=== PATIENT | female | born 1950 | race Hispanic/Latino ===

== ENCOUNTER 2017-04-15 05:18 | Inpatient (IN) | payer MEDICAID, MEDICARE ==
[2017-04-15 05:28] VITALS: BMI 43.9
[2017-04-15] MEDS ORDERED: Morphine 2 mg/ml ISec IVP STA (06:04)
[2017-04-15] MEDS ORDERED: Sodium Chloride 0.9% 500 ML IV STA (06:04)
--- NOTE | 2017-04-15 06:10 | ED PDOC ---
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 Patient reports she lives in [place], went to blood sugar doctor today, had blood pressure of 190/120, was referred to a spinning machine tender. Patient notes having some anxiety when she went home about this and developed some chest pain, drove from [place] to [place] to stay with son tonight. Patient reports elevated blood pressure tonight and couldn't sleep. Patient notes she has a scheduled surgery in three days because of two bumps in vaginal area, cancelled due to elevated blood pressure. Reports pain is 5 out of 10. Patient denies any other complaints at this time. mechanical process engineer number: [id number], name Mela (Jimbo Brooks) Past Medical History - Provider Review Nursing Documentation Reviewed: Yes - Reproductive Menopause: Yes - Cardiac Hx Hypertension: Yes - Pulmonary Hx Respiratory Disorders: No - Neurological Hx Neurological Disorder: No - HEENT Hx HEENT Disorder: No - Renal Hx Renal Disorder: No - Endocrine/Metabolic Hx Diabetes Mellitus Type 2: Yes - Hematological/Oncological Hx Blood Disorders: No - Integumentary Hx Dermatological Disorder: No - Musculoskeletal/Rheumatological Hx Musculoskeletal Disorders: No - Gastrointestinal Hx Gastrointestinal Disorders: No - Genitourinary/Gynecological Hx Genitourinary Disorders: No - Psychiatric Hx Depression: Yes Hx Substance Use: No - Surgical History Hx Cholecystectomy: Yes Other/Comment: vein put in heart - Suicidal Assessment Feels Threatened In Home Enviroment: No <Jimbo Brooks - Last Filed: 04/15/17 06:11> Family/Social History - Physician Review Nursing Documentation Reviewed: Yes Family/Social History: No Known Family HX Smoking Status: Never Smoked Hx Alcohol Use: No Hx Substance Use: No <Jimbo Brooks - Last Filed: 04/15/17 06:11> Allergies/Home Meds <Jimbo Brooks - Last Filed: 04/15/17 06:11> <Sacha Webre - Last Filed: 04/15/17 07:54> Allergies/Adverse Reactions: Allergies Penicillins Allergy (Verified 04/15/17 05:28) RASH Home Medications: Home Meds Medication Instructions Recorded Confirmed Aripiprazole [Abilify] 1 mg PO HS 06/04/13 04/15/17 Aspirin [Aspir 81] 81 mg PO DAILY 06/04/13 04/15/17 Atorvastatin [Lipitor] 10 mg PO HS 06/04/13 04/15/17 Clonidine Hydrochloride [Clonidine 0.2 mg PO TID 06/04/13 04/15/17 HCl] Ezetimibe [Zetia] 10 mg PO HS 06/04/13 04/15/17 Furosemide 20 mg PO BID 06/04/13 04/15/17 Levothyroxine Sodium 50 mcg PO DAILY 06/04/13 04/15/17 Losartan Potassium [Cozaar] 100 mg PO DAILY 06/04/13 04/15/17 Venlafaxine Hydrochloride [Effexor 150 mg PO DAILY 06/04/13 04/15/17 Xr] clonazePAM [clonAZEPAM] 0.5 mg PO HS 06/04/13 04/15/17 clonazePAM [clonAZEPAM] 0.5 mg PO QAM 06/04/13 04/15/17 Clopidogrel [Plavix] 75 mg PO QAM 04/15/17 04/15/17 Exenatide Microspheres [Bydureon 2 mg SQ QWK 04/15/17 04/15/17 Pen] Insulin Aspart Prot/Insuln Asp 25 unit SQ TID 04/15/17 04/15/17 [Novolog Mix 70-30 Vial] Labetalol [Trandate] 300 mg PO BID 04/15/17 04/15/17 amLODIPine [Norvasc] 10 mg PO HS 04/15/17 04/15/17 Review of Systems - Physician Review All systems were reviewed & negative as marked: Yes - Review of Systems Constitutional: absent: Fevers Cardiovascular: Chest Pain Psychiatric: Anxiety <Jimbo Brooks - Last Filed: 04/15/17 06:11> Physical Exam Vital Signs Reviewed: Yes Temperature: Afebrile Blood Pressure: Hypertensive Pulse: Regular Respiratory Rate: Normal Appearance: Positive for: Comfortable, Other (Short of breath, shallow breathing ) Pain Distress: None Mental Status: Positive for: Alert and Oriented X 3 - Systems Exam Head: Present: Atraumatic, Normocephalic Pupils: Present: PERRL Extroacular Muscles: Present: EOMI Conjunctiva: Present: Normal Mouth: Present: Moist Mucous Membranes Neck: Present: Normal Range of Motion Respiratory/Chest: Present: Other (shallow breathing). No: Respiratory Distress , Accessory Muscle Use Cardiovascular: Present: Regular Rate and Rhythm, Normal S1, S2. No: Murmurs Abdomen: Present: Normal Bowel Sounds. No: Tenderness, Distention, Peritoneal Signs Back: Present: Normal Inspection Upper Extremity: Present: Normal Inspection. No: Cyanosis, Edema Lower Extremity: Present: Normal Inspection. No: Edema Neurological: Present: GCS=15, CN II-XII Intact, Speech Normal Skin: Present: Warm, Dry, Normal Color. No: Rashes Psychiatric: Present: Alert, Oriented x 3, Normal Insight, Normal Concentration <Jimbo Brooks - Last Filed: 04/15/17 06:11> Vital Signs Temp Pulse Resp BP Pulse Ox 04/15/17 05:29 98.2 F 96 H 20 178/78 H 100 04/15/17 05:19 98.2 F 97 H 18 178/78 H 100 Medical Decision Making - Lab Interpretations I have reviewed the lab results: Yes - EKG Interpretation Interpreted by ED Physician: Yes Type: 12 lead EKG <Jimbo Brooks - Last Filed: 04/15/17 06:11> - RAD Interpretation Political Scientist: Radiologist <Sacha Weber - Last Filed: 04/15/17 07:54> ED Course and Treatment: 04/15/17 06:07 Impression: A 66 year old female with chest pain and elevated blood pressure. Plan: -- EKG -- chest xray -- CT angio chest -- CT head -- labs -- Urinalysis -- Ativan, Zofran, IV fluids, Morphine -- Reassess and disposition Prior Visits: Notes and results from previous visits were reviewed. Patient was last seen in the emergency department on 06/04/13 for evaluation of syncopal episodes. Progress Notes: EKG: Ordered, reviewed, and independently interpreted the EKG. Rate : 93 BPM Rhythm : NSR Interpretation : Normal intervals, normal axis (Jimbo Brooks) 04/15/17 07:36 Turned over to me by waiting for CT scan of the head and CTA. Patient is Honduran speaking. Apparently had chest pain yesterday. History of hypertension and diabetes. Discussed with Dr. Leo who will place on telemetry observation. (Sacha Weber) - Lab Interpretations Lab Results: 04/15/17 05:34 04/15/17 05:34 Lab Results 04/15/17 06:27: Influenza Typ A,B (EIA) Negative for flu a/b 04/15/17 06:21: pCO2 33 L, pO2 124.0 H, HCO3 24.0, ABG pH 7.47 H, ABG Total CO2 25.0, ABG O2 Saturation 99.0 H, ABG Base Excess 0.9, ABG Potassium 4.0, Glucose 405 H*, Lactate 1.9, FiO2 28.0, Sodium 135.0, Chloride 102.0, Arterial Blood Potassium 4.0 04/15/17 05:34: Sodium 139, Potassium 4.3, Chloride 99, Carbon Dioxide 25, Anion Gap 19, BUN 20, Creatinine 0.9, Est GFR ( Amer) > 60, Est GFR (Non- Af Amer) > 60, Random Glucose 406 H* D, Calcium 10.2, Total Bilirubin 0.8, AST 24, ALT 39, Alkaline Phosphatase 194 H, Lactate Dehydrogenase 601, Total Creatine Kinase 274 H, CK-MB (CK-2) 3.8 H, CK-MB (CK-2) % Cancelled, Troponin I 0.01, NT-Pro-B Natriuret Pep 90.8, Total Protein 7.7, Albumin 4.4, Globulin 3.3 , Albumin/Globulin Ratio 1.3 04/15/17 05:34: PT 11.1, INR 0.97 04/15/17 05:34: WBC 6.2, RBC 4.69, Hgb 14.0, Hct 41.6, MCV 88.7, MCH 29.9, MCHC 33.7, RDW 14.2, Plt Count 228, MPV 10.1, Gran % 67.4, Lymph % (Auto) 23.2, [place] % (Auto) 6.8 H, Eos % (Auto) 1.8, Baso % (Auto) 0.8, Gran # 4.16, Lymph # (Auto ) 1.4, [place] # (Auto) 0.4, Eos # (Auto) 0.1, Baso # (Auto) 0.05 - RAD Interpretation Radiology Orders: 04/15/17 06:00 ANGIO CHEST PE PROTOCOL [CT] Stat CHEST PORTABLE [RAD] Stat 04/15/17 06:02 HEAD W/O CONTRAST [CT] Stat CT scan of the head as read by the radiologist shows no acute findings. CT scan of the chest as read by the radiologist shows no acute findings. (Sacha Weber) - Medication Orders Current Medication Orders: Amlodipine Besylate (Norvasc) 10 mg PO HS ENRIQUETA Aspirin (Ecotrin) 81 mg PO DAILY ENRIQUETA Atorvastatin Calcium (Lipitor) 10 mg PO HS ENRIQUETA Clonazepam (Klonopin) 0.5 mg PO QAM ENRIQUETA PRN Reason: Protocol Clonazepam (Klonopin) 0.5 mg PO HS ENRIQUETA PRN Reason: Protocol Clopidogrel Bisulfate (Plavix) 75 mg PO QAM ENRIQUETA Insulin Human Regular (Humulin R High) 0 units SC ACHS ENRIQUETA PRN Reason: Protocol Labetalol HCl (Trandate) 300 mg PO BID ENRIQUETA Non-Formulary Medication (Aripiprazole [Abilify]) 1 mg PO HS ENRIQUETA Non-Formulary Medication (Clonidine Hydrochloride [Clonidine Hcl]) 0.2 mg PO TID ENRIQUETA Non-Formulary Medication (Ezetimibe [Zetia]) 10 mg PO HS ENRIQUETA Non-Formulary Medication (Furosemide [Furosemide]) 20 mg PO BID ENRIQUETA Non-Formulary Medication (Insulin Aspart Prot/Insuln Asp [Novolog Mix 70-30 Vial ]) 25 unit SQ TID ENRIQUETA Non-Formulary Medication (Levothyroxine Sodium [Levothyroxine Sodium]) 50 mcg PO DAILY ENRIQUETA Non-Formulary Medication (Losartan Potassium [Cozaar]) 100 mg PO DAILY ENRIQUETA Non-Formulary Medication (Venlafaxine Hydrochloride [Effexor Xr]) 150 mg PO DAILY ENRIQUETA Discontinued Medications Sodium Chloride (Sodium Chloride 0.9%) 500 mls @ 999 mls/hr IV .Q31M STA Stop: 04/15/17 06:34 Last Admin: 04/15/17 06:24 Dose: 999 mls/hr eMAR Start Stop Document 04/15/17 06:24 AD (Rec: 04/15/17 06:24 AD [id number]) Intravenous Solution Start Date 04/15/17 Start Time 06:24 Insulin Human Regular (Humulin R) 7 units IVP ONCE ONE Stop: 04/15/17 06:49 Last Admin: 04/15/17 06:56 Dose: 7 units MAR Blood Glucose Document 04/15/17 06:56 AD (Rec: 04/15/17 06:56 AD [id number]) Blood Glucose Finger Stick Blood Glucose (70-120) 406 IVP Administration Document 04/15/17 06:56 AD (Rec: 04/15/17 06:56 AD [id number]) Charges for Administration # of IVP Administrations 1 Lorazepam (Ativan) 1 mg IVP ONCE ONE PRN Reason: Protocol Stop: 04/15/17 06:05 Last Admin: 04/15/17 06:24 Dose: 1 mg IVP Administration Document 04/15/17 06:24 AD (Rec: 04/15/17 06:25 AD [id number]) Charges for Administration # of IVP Administrations 1 Morphine Sulfate (Morphine) 2 mg IVP STAT STA Stop: 04/15/17 06:05 Last Admin: 04/15/17 06:24 Dose: 2 mg MAR Pain Assessment Document 04/15/17 06:24 AD (Rec: 04/15/17 06:24 AD [id number]) Pain Reassessment Is this a pain reassessment? No Location Pain Location Body Site Chest Description Intensity of Pain at present 5 Pain Behavior Facial Grimacing IVP Administration Document 04/15/17 06:24 AD (Rec: 04/15/17 06:24 AD [id number]) Charges for Administration # of IVP Administrations 1 Ondansetron HCl (Zofran Inj) 4 mg IVP STAT STA Stop: 04/15/17 06:05 Last Admin: 04/15/17 06:24 Dose: 4 mg IVP Administration Document 04/15/17 06:24 AD (Rec: 04/15/17 06:24 AD [id number]) Charges for Administration # of IVP Administrations 1 - Scribe Statement The provider has reviewed the documentation as recorded by the Scribe <Jimbo Brooks - Last Filed: 04/15/17 06:11> <Sacha Weber - Last Filed: 04/15/17 07:54> - Scribe Statement Lynette Norris Provider Scribe Attestation: All medical record entries made by the Scribe were at my direction and personally dictated by me. I have reviewed the chart and agree that the record accurately reflects my personal performance of the history, physical exam, medical decision making, and the department course for this patient. I have also personally directed, reviewed, and agree with the discharge instructions and disposition. (Jimbo Brooks) Disposition/Present on Arrival - Present on Arrival History of DVT/PE: No History of Uncontrolled Diabetes: No Urinary Catheter: No History of Decub. Ulcer: No History Surgical Site Infection Following: None <Jimbo Brooks - Last Filed: 04/15/17 06:11> - Present on Arrival Any Indicators Present on Arrival: No History of DVT/PE: No History of Uncontrolled Diabetes: Yes Urinary Catheter: No History of Decub. Ulcer: No - Disposition Have Diagnosis and Disposition been Completed?: Yes Disposition Time: 07:44 Patient Plan: Observation, Telemetry <Sacha Weber - Last Filed: 04/15/17 07:54> - Disposition Diagnosis: Chest pain, Hypertension, Hyperglycemia Disposition: HOSPITALIZED Patient Problems: Current Active Problems Problem Status Onset Chest pain Acute Hyperglycemia Acute Hypertension Acute Condition: GOOD
[2017-04-15 06:24] LABS: ARTERIAL BLOOD GAS PCO2 33 mm/Hg (35-45); ARTERIAL BLOOD GAS PH 7.47 (7.35-7.45)
[2017-04-15 06:29] LABS: BASO # 0.05 K/mm3 (0.0-2.0); BASO % 0.8 % (0.0-3.0); EOS # 0.1 (0.0-0.7); EOS % 1.8 % (1.5-5.0); GRAN # 4.16 (1.4-6.5); GRAN % 67.4 % (50.0-68.0); LYMPH # 1.4 (1.2-3.4); LYMPH % 23.2 % (22.0-35.0); MEAN CELL VOLUME 88.7 fl (80.0-105.0); MEAN CORPUSCULAR HEMOGLOBIN 29.9 pg (25.0-35.0); MEAN CORPUSCULAR HGB CONC 33.7 g/dl (31.0-37.0); MEAN PLATELET VOLUME 10.1 fl (7.0-11.0); MONO # 0.4 (0.1-0.6); MONO % 6.8 % (1.0-6.0); RBC 4.69 10^6/uL (3.5-6.1); RED CELL DISTRIBUTION WIDTH 14.2 % (11.5-14.5); WHITE BLOOD COUNT 6.2 10^3/ul (4.5-11.0)
[2017-04-15 06:37] LABS: INR 0.97 (0.93-1.08); PROTHROMBIN TIME 11.1 SECONDS (9.4-12.5)
[2017-04-15 06:46] LABS: ALB/GLOB RATIO 1.3 (1.1-1.8); ALBUMIN 4.4 g/dL (3.0-4.8); ALT/SGPT 39 U/L (7-56); AST/SGOT 24 U/L (14-36); BLOOD UREA NITROGEN 20 mg/dL (7-21); CALCIUM 10.2 mg/dL (8.4-10.5); GFR AFRICAN-AMERICAN > 60; GFR NON-AFRICAN AMERICAN > 60
[2017-04-15] MEDS ORDERED: Insulin Regular 1 UNITS/0.01 ML ML IVP ONE (06:48)
[2017-04-15 06:50] LABS: B-TYPE NATRIURETIC PEPTIDE 90.8 pg/mL (0-450); TROPONIN I 0.01 ng/mL
[2017-04-15 07:06] LABS: CK-MB 3.8 ng/mL (0.0-3.6)
--- NOTE | 2017-04-15 07:41 | CT ---
EXAM: CT Head Without Intravenous Contrast CLINICAL HISTORY: 66 years old, female; Signs and symptoms; Dizziness; Additional info: Hypertensive crisis TECHNIQUE: Axial computed tomography images of the head/brain without intravenous contrast. All CT scans at this facility use one or more dose reduction techniques, viz.: automated exposure control; ma/kV adjustment per patient size (including targeted exams where dose is matched to indication; i.e. head); or iterative reconstruction technique. Coronal and sagittal reformatted images were created and reviewed. COMPARISON: No relevant prior studies available. FINDINGS: Brain: There is mild ill-defined patchy hypodensity within the bilateral cerebral periventricular white matter, consistent with chronic microvascular ischemic changes. There is mild diffuse cerebral atrophy present, consistent with this patient's age. The cortical rivera / white matter interfaces are preserved throughout the brain. Examination of the posterior fossa demonstrates no significant abnormality. No hemorrhage. Ventricles: The ventricular system demonstrates mild diffuse compensatory enlargement. Bones/joints: Unremarkable. No acute fracture. Soft tissues: Unremarkable. Vasculature: There is no hyperdense MCA sign. Sinuses: Unremarkable as visualized. No acute sinusitis. Mastoid air cells: Unremarkable as visualized. No mastoid effusion. IMPRESSION: No acute infarction, masses or hemorrhage is seen. No acute intracranial abnormality is identified. Diffuse age-related cerebral atrophy and mild chronic microvascular white matter ischemic changes, without evidence of an acute intracranial abnormality.
--- NOTE | 2017-04-15 07:50 | CT ---
EXAM: CT Angiography Chest With Intravenous Contrast CLINICAL HISTORY: 66 years old, female; Signs and symptoms; Shortness of breath; Additional info: Possible pe TECHNIQUE: Axial computed tomographic angiography images of the chest with intravenous contrast using pulmonary embolism protocol. All CT scans at this facility use one or more dose reduction techniques, viz.: automated exposure control; ma/kV adjustment per patient size (including targeted exams where dose is matched to indication; i.e. head); or iterative reconstruction technique. MIP reconstructed images were created and reviewed. Coronal and sagittal reformatted images were created and reviewed. CONTRAST: 135 mL of omni 350 administered intravenously. COMPARISON: No relevant prior studies available. FINDINGS: Pulmonary arteries: The pulmonary arteries are adequately opacified. No evidence of pulmonary embolism in the main, central, lobar or segmental pulmonary arteries. Aorta: The thoracic aorta is normal caliber without evidence for aneurysm or dissection. The aorta demonstrates mild atherosclerotic calcification. Lungs: There is subpleural atelectasis of the dependent portions of the lungs.No acute infiltrate, pneumothorax or pleural effusion is seen. No mass. Pleural space: See above. Heart: There is moderate atherosclerotic calcification of the coronary arteries. No significant pericardial effusion. No evidence of RV dysfunction. Bones/joints: The thoracic spine demonstrates mild degenerative changes at multiple levels. No acute fracture. No dislocation. Soft tissues: Unremarkable. Lymph nodes: Unremarkable. No enlarged lymph nodes. IMPRESSION: 1. The thoracic aorta is normal caliber without evidence for aneurysm or dissection. 2. The pulmonary arteries are adequately opacified. No evidence of pulmonary embolism in the main, central, lobar or segmental pulmonary arteries. 3. There is subpleural atelectasis of the dependent portions of the lungs.No acute infiltrate, pneumothorax or pleural effusion is seen.
[2017-04-15 08:17] LABS: PH,URINE 6.5 (4.7-8.0); URINE BILIRUBIN NEGATIVE (NEGATIVE); URINE BLOOD SMALL (NEGATIVE); URINE GLUCOSE (UA) >=1000 mg/dL (NEGATIVE); URINE LEUKOCYTE ESTERASE NEGATIVE Leu/uL (NEGATIVE); URINE NITRATE NEGATIVE (NEGATIVE); URINE PROTEIN 30 mg/dL (<30 mg/dL); URINE UROBILINOGEN 0.2 E.U./dL (<1 E.U./dL)
[2017-04-15 08:18] LABS: URINE APPEARANCE SL CLOUDY (CLEAR); URINE COLOR YELLOW (YELLOW)
--- NOTE | 2017-04-15 08:25 | RAD ---
HISTORY: chest pain COMPARISON: 06/04/2013 FINDINGS: LUNGS: No active pulmonary disease. PLEURA: No significant pleural effusion identified, no pneumothorax apparent. CARDIOVASCULAR: Normal. OSSEOUS STRUCTURES: No significant abnormalities. VISUALIZED UPPER ABDOMEN: Normal. OTHER FINDINGS: None. IMPRESSION: No active disease.
[2017-04-15 08:27] LABS: URINE BACTERIA FEW (NEG); URINE RBC 0 - 2 /hpf (0-2)
[2017-04-15] MEDS: Levothyroxine 50 MCG TAB PO SCH (10:38)
[2017-04-15] MEDS: Venlafaxine 75 mg ER Cap PO SCH (10:39)
[2017-04-15] MEDS: Insulin Lispro (humaLOG) MIX 75/25(10 ml) SC SCH ×3 (11:44→18:45)
[2017-04-15] MEDS: Insulin Reg-HIGH-Coverage SC SCH ×3 (11:45→22:03)
--- NOTE | 2017-04-15 12:26 | CARD ---
APPROVED REPORT EKG Measurement Heart [id number] NM [id number] <Conclusion> Normal sinus rhythm Normal ECG
[2017-04-15] MEDS ORDERED: Pneumococcal 23-Valent Vaccine IM ONE (13:45)
[2017-04-15] MEDS ORDERED: Influenza Vaccine 60 mcg/0.5 mL SYR (4YR UP) IM ONE (13:45)
--- NOTE | 2017-04-15 18:59 | HP ---
HISTORY OF PRESENT ILLNESS: I was called down to the emergency room to check on her by the ER doctor. She is a 66-year-old female, who is brought in by EMS at the emergency department complaining of chest pain. She has been sick, went to her blood sugar doctor, her blood pressure was 190/120, went to the hook loader, she had a little bit of anxiety, went home, developed chest pain later on. Her son eventually called 911 and brought her here. She could not sleep. There is also a scheduled surgery for her in 3 days because of two bumps in the vaginal area and it was canceled due to high blood pressure. She is having some chest pain. PAST MEDICAL HISTORY: She has CAD, hypertension, diabetes, depression, gallbladder surgery, a vein put in the heart. FAMILY HISTORY: Hypertension in the family. SOCIAL HISTORY: Never smoked. No alcohol. No drugs. ALLERGIES: SHE HAS ALLERGIES TO PENICILLIN. MEDICATIONS: She takes many medications. She might have some bipolar. She is on Abilify, aspirin, Lipitor for high cholesterol, clonidine for hypertension, Zetia, Lasix, levothyroxine for hypothyroid, Cozaar for hypertension, Effexor for depression, clonazepam for anxiety, Plavix, exenatide, insulin pen, Trandate, Norvasc. REVIEW OF SYSTEMS: No acute vision changes or hearing changes. No sore throat. She is having chest pain like a pressure, anxiety. No shortness of breath. No abdominal pain. No nausea, vomiting, constipation, or diarrhea. Extremities are okay. She is a very large lady. PHYSICAL EXAMINATION: VITAL SIGNS: She has 98.2 temperature, 97 pulse, 18 respiratory rate, 178/70 blood pressure, 100% O2 sat on room air. HEENT: Head is atraumatic, normocephalic. Extraocular muscles are intact. Pupils are equal, reactive to light. Throat is moist. NECK: Supple. HEART: Regular rate. Normal S1 and S2. LUNGS: Decreased breath sounds, but clear to auscultation. No wheezes, no rhonchi, no rales. ABDOMEN: Morbidly obese, soft, nontender. Positive bowel sounds. No apparent guarding or rebound. No CVA tenderness. EXTREMITIES: Have +1/4 pitting edema, bilateral lower extremities. NEUROLOGIC: GCS of 15. Cranial nerves II through XII grossly intact. Normal speech. She does speak Cuban, but also broken Maltese. We were able to communicate well. Alert and oriented x3, comfortable. SKIN: Warm and dry. No apparent rashes or ulcers. No chest pain at this time when I am talking to her. LABORATORY DATA: She has multiple tests. She is negative for flu. Sodium 139, potassium 4.3, BUN 20, creatinine 0.9, GFR is greater than 60; sugar is 406, I put her back on her insulin, also put her on insulin coverage. Calcium is 10.2. Total bilirubin is 0.8, AST is 24, ALT is 39, alkaline phosphatase 194. Lactate dehydrogenase is 601, total creatine kinase is 274, troponin-I is 0.01, BNP is 90.8, total protein is 7.7, albumin is 4.4, globulin is 3.3. Blood gas: She has a pCO2 of 33, pO2 is 124, sugar is 405, lactate was 1.9. INR is 0.97. She has a 6.2 white count, 14 hemoglobin, 41.6 hematocrit, with 220 platelets. She has a CAT scan of the head that showed old chest x-ray and chest CAT scan pending. Presently, I got her being very comfortable. She has 100% O2 sat on nasal cannula. She has a consult with Dr. Giles, hook loader. We will check her troponin x2 more, put on her medications, oxygen, order physical therapy. She is here on observation for chest pain. Vladimir Leo DO [email or web address]
[2017-04-15] MEDS: ARIPIPRAZOLE 1 MG PO SCH (22:03)
[2017-04-16 00:44] VITALS: O2SAT 96
--- NOTE | 2017-04-16 01:29 | CON ---
DATE: 04/15/2017 HISTORY OF PRESENT ILLNESS: The patient is a 66-year-old woman, who presents with chest pain and accelerated hypertension. The patient's past medical history includes hypertension, CAD and status post stent done at [facility], diabetes mellitus, obesity as well as palpitations. Reviewing her history, she had a monitor implanted, ruling out palpitations. She currently is still complaining of mild substernal chest discomfort. SOCIAL HISTORY: Does not smoke. REVIEW OF SYSTEMS: Fourteen-point review of systems is reviewed in detail. Other than angina, no dyspnea noted. Negative edema. No palpitations noted. PHYSICAL EXAMINATION: VITAL SIGNS: Blood pressure is 157/88, heart rate is in the 90s. NECK: Negative JVD. LUNGS: Without rales. HEART: Reveals S1, S2. EXTREMITIES: Without edema. LABORATORY DATA: EKG shows normal sinus rhythm with nonspecific ST-T changes. Glucose is 299. BUN and creatinine are normal. Troponin is negative x2. Hemoglobin is 14. IMPRESSION 1. Unstable angina. 2. Coronary artery disease. 3. History of percutaneous transluminal coronary angioplasty and stent. 4. Hypertension. 5. Hypercholesterolemia. 6. Diabetes mellitus. 7. Obesity. PLAN: Given these findings, we will restart the patient on her aspirin as well as her Plavix. The patient has currently been placed on labetalol for better blood pressure as well as Catapres. I have discussed risks, benefits of doing the catheterization here versus sending the patient back to her [facility] in [facility]. After discussion with the patient and her son, she elected to have a catheterization done here. We will schedule for the morning. Zachary Giles MD
[2017-04-16 06:21] LABS: HEMOGLOBIN 12.6 g/dL (12.0-16.0); MEAN CELL VOLUME 91.8 fl (80.0-105.0); MEAN CORPUSCULAR HEMOGLOBIN 29.4 pg (25.0-35.0); RBC 4.29 10^6/uL (3.5-6.1); RED CELL DISTRIBUTION WIDTH 14.9 % (11.5-14.5); WHITE BLOOD COUNT 5.5 10^3/ul (4.5-11.0)
[2017-04-16] MEDS: Insulin Reg-HIGH-Coverage SC SCH ×4 (07:43→23:21)
[2017-04-16 07:53] LABS: ALB/GLOB RATIO 1.2 (1.1-1.8); ALBUMIN 3.7 g/dL (3.0-4.8); CALCIUM 9.4 mg/dL (8.4-10.5)
[2017-04-16] MEDS: Insulin Lispro (humaLOG) MIX 75/25(10 ml) SC SCH ×3 (09:25→18:36)
[2017-04-16] MEDS: Venlafaxine 75 mg ER Cap PO SCH (10:16)
[2017-04-16] MEDS: Levothyroxine 50 MCG TAB PO SCH (10:16)
--- NOTE | 2017-04-16 12:23 | PN ---
DATE: SUBJECTIVE: She is comfortable on bed. No chest pain. She is breathing well. She slept well. She is eating well. She is on Abilify, Catapres, Cozaar, Ecotrin, Effexor, insulin mix, Klonopin, Lasix, Lipitor, Norvasc, Plavix, Synthroid, Trandate, and Zetia. PHYSICAL EXAMINATION: VITAL SIGNS: Temperature 97.9, 78 pulse, 127/68 blood pressure, 20 respiratory rate, 96% O2 on room air. HEENT: Head is atraumatic, normocephalic. Throat is moist. NECK: Supple. HEART: Regular rate. LUNGS: Decreased breath sounds but clear. ABDOMEN: Soft, nontender. Positive bowel sounds. Morbidly obese. EXTREMITIES: Trace edema. LABORATORY DATA: She has a 5.5 white count, 12.6 hemoglobin, 39.4 hematocrit with 225 platelets. She has a 142 sodium, potassium 4.2. BUN is 22, creatinine is 1.2. GFR is 45. Blood sugar is 192, it was as high as 405 when she came in. Calcium is 9.4. Total bilirubin is 0.78, AST is 28, ALT is 48, alkaline phosphatase 165. Troponin was 0.02 and total protein 6.9. Urine is few, negative for the flu. She is being seen by Cardiology. He feels she is having unstable angina and we will take her for catheterization today. If everything is fine, we could probably discharge her later on this evening. Otherwise, if he has to put a stent, watch her overnight. She has unstable angina, coronary artery disease, chest pain, history of percutaneous transluminal coronary angioplasty and stent, hypertension, hypercholesterolemia, diabetes, and obesity. Vladimir Leo DO
[2017-04-16] MEDS ORDERED: Iodixanol 320 MG/ML 100 ML BOTTLE IV ONE (13:19)
[2017-04-16] MEDS ORDERED: HEPARIN SODIUM/NS 2,000 ML IV ONE (13:19)
[2017-04-16] MEDS ORDERED: Lidocaine 2% Inj (20ml) ONE (13:19)
[2017-04-16] MEDS ORDERED: Iohexol 350mgl/ml 50 ML ONE (13:19)
[2017-04-16] MEDS ORDERED: Phenylephrine 10 mg/ml Inj ONE (13:19)
[2017-04-16] MEDS ORDERED: Iodixanol 320 MG/ML 200 ML BOTTLE IV ONE (13:19)
[2017-04-16] MEDS ORDERED: Midazolam 2 MG/2 ML VIAL ONE (13:36)
[2017-04-16] MEDS ORDERED: Sodium Chloride 0.9% 1,000 ML IV SCH (15:00)
[2017-04-16] MEDS: ARIPIPRAZOLE 1 MG PO SCH (23:22)
--- NOTE | 2017-04-17 00:32 | CARD ---
APPROVED REPORT EKG Measurement Heart [id number] MD [id number] <Conclusion> Normal sinus rhythm Cannot rule out Inferior infarct, age undetermined Abnormal ECG
--- NOTE | 2017-04-17 03:32 | CARDCATH ---
PROCEDURE DATE: 04/16/2017 CARDIAC CATHETERIZATION AND PTCA HISTORY: The patient is a 66-year-old woman with multiple cardiac risk factors, with a history of PTCA in the past, who presents with angina with ongoing symptoms at rest. Her troponins were intermediate. Because of her non-STEMI and high probability for new CAD lesions, a cardiac catheterization was recommended. Risks and benefits were discussed with the son on the phone. The patient requested to have the procedure done here. PROCEDURE: Left heart catheterization with coronary arteriography, left ventriculogram followed by percutaneous transluminal coronary angioplasty and stent of an left anterior descending. The right femoral artery was cannulated with a 6-Cymro sheath. There were no complications. I performed moderate sedation, which included the presence of an independent trained observer that assisted in monitoring the patient's level of consciousness and physiologic status. After administration of Versed and fentanyl, my intra-service time was 30 minutes. The findings on catheterization revealed a right dominant circulation. The RCA revealed an eccentric 70%-80% stenosis in the proximal portion. The left main artery was unremarkable. The LAD revealed a stent that extended from the midportion of the LAD into the diagonal vessel. At the takeoff of the LAD after the stent, there was an eccentric 90% stenosis noted. The circumflex artery revealed diffuse atherosclerosis without critical lesions. LV function was preserved with an EF of 60%. The patient was started on intravenous Angiomax on the fluoroscopic guide, the guiding catheter was placed in the ostium of the left main artery. A 0.014 ATW wire was used to cross the stent into the LAD lesion. A 1.25 balloon, followed by a 2.0 balloon, followed by a 2.5 balloon, followed by 2.75 balloon utilized to pre-dilate the lesion. This was followed by placing a 2.75 x 12 mm drug-eluting stent at 14 atmospheres of pressure in the lesion, which crossed the side of the stent into the LAD lesion. After balloon deflation and removal, repeat coronary arteriography revealed an excellent result with no residual stenosis in the LAD and ROSA III flow. There was preserved ROSA III flow down the diagonal vessel, although there was a 90% stenosis at the ostium of the diagonal which was not manipulated. Angio-Seal was used to close the femoral artery site. The patient tolerated the procedure well. In summary, the procedure was successful PTCA and stent of a 90% stenosis across an LAD diagonal stent that was placed in the past. Cardiac catheterization revealed two-vessel CAD. Drug-eluting stents were utilized. LV function is normal. Given these findings, the patient will need to remain on aspirin indefinitely and Plavix for at least a year. We will bring her back in 1 week for PTCA and stent of the RCA. Zahcary Giles MD
[2017-04-17 07:10] LABS: BASO # 0.02 K/mm3 (0.0-2.0); BASO % 0.4 % (0.0-3.0); BLOOD UREA NITROGEN 16 mg/dL (7-21); CALCIUM 8.8 mg/dL (8.4-10.5); EOS # 0.2 (0.0-0.7); EOS % 2.7 % (1.5-5.0); GFR AFRICAN-AMERICAN > 60; GFR NON-AFRICAN AMERICAN > 60; GRAN # 3.68 (1.4-6.5); GRAN % 66.1 % (50.0-68.0); HEMOGLOBIN 12.3 g/dL (12.0-16.0); LYMPH # 1.3 (1.2-3.4); LYMPH % 24.1 % (22.0-35.0); MEAN CELL VOLUME 91.9 fl (80.0-105.0); MEAN CORPUSCULAR HEMOGLOBIN 29.4 pg (25.0-35.0); MEAN CORPUSCULAR HGB CONC 31.9 g/dl (31.0-37.0); MONO # 0.4 (0.1-0.6); MONO % 6.7 % (1.0-6.0); RBC 4.19 10^6/uL (3.5-6.1); RED CELL DISTRIBUTION WIDTH 14.7 % (11.5-14.5); WHITE BLOOD COUNT 5.6 10^3/ul (4.5-11.0)
[2017-04-17] MEDS: Insulin Reg-HIGH-Coverage SC SCH ×2 (08:41→12:45)
[2017-04-17] MEDS: Insulin Lispro (humaLOG) MIX 75/25(10 ml) SC SCH (09:29)
[2017-04-17] MEDS: Levothyroxine 50 MCG TAB PO SCH (09:30)
[2017-04-17] MEDS: Venlafaxine 75 mg ER Cap PO SCH (09:30)
[2017-04-17 12:03] VITALS: BP 136/66; PULSE 79; RESP 18; TEMP 97.9
[2017-04-17] MEDS ORDERED: Influenza Vaccine 60 mcg/0.5 mL SYR (4YR UP) IM ONE (12:25)
[2017-04-17] MEDS ORDERED: Pneumococcal 23-Valent Vaccine IM ONE (12:25)
--- NOTE | 2017-04-17 12:48 | PN ---
DATE: 04/17/2017 CARDIOLOGY FOLLOWUP SUBJECTIVE: The patient is asymptomatic. PHYSICAL EXAMINATION: VITAL SIGNS: Blood pressure is 123/60, the heart rates in the 80s. NECK: Negative JVD. LUNGS: Without rales. HEART: With S1, S2. EXTREMITIES: Without edema. LABORATORY DATA: Hemoglobin is 12.3. Chemistries: BUN and creatinine are unremarkable. The glucose is 199. IMPRESSION: 1. Stable post percutaneous transluminal coronary angioplasty and stent of a 90% left anterior descending stenoses. 2. Multivessel coronary artery disease. 3. Hypertension. 4. Hypercholesterolemia. 5. Obesity. PLAN: Given these findings, the patient is stable post PTCA and stent. From a cardiac perspective, the patient can be discharged today. The patient is scheduled to come back next week on Friday for stage PTCA of the RCA. Zachary Giles MD
--- NOTE | 2017-04-18 08:42 | DS ---
SUBJECTIVE: I saw her resting comfortably in bed. She is feeling fairly well. She had a cardiac cath yesterday with placement, I believe, of a stent. She has unstable angina, CAD, hypertension, high cholesterol, diabetes, high blood sugar. She is comfortable. No complaints this morning in her broken Indonesian and my broken Cypriot. She is on Abilify, Catapres, Cozaar, Ecotrin, Effexor, Humalog, Klonopin, Lasix, Lipitor, Norvasc, Plavix, Synthroid, Trandate, and Zetia. PHYSICAL EXAMINATION: VITAL SIGNS: She has a 97.4 temp, 85 pulse, 122/50 blood pressure, 20 respiratory rate. HEENT: Head is atraumatic, normocephalic. HEART: Regular rate. LUNGS: Decreased breath sounds, but clear. ABDOMEN: Soft, morbidly obese. EXTREMITIES: Trace edema. LABORATORY DATA: She has 5.6 white count, 12.3 hemoglobin, 38.5 hematocrit, with 207 platelets. Sodium 141, potassium 4, BUN 16, creatinine 0.9, GFR is greater than 60. Sugar is 183, calcium is 8.8. ASSESSMENT AND PLAN: Overall she did better after the cardiac cath and stent placement. Next week, she is coming back for another vessel to be opened by Dr. Giles. I believe she is coming back on Friday. She will go home on these medications. Hopefully, she should do very well and I will see her next Friday. She was here for unstable angina and coronary artery disease. Vladimir Leo DO
== END 2017-04-17 13:41 | disposition home or self-care (01) | DRG 247 ==
LOC: ED 05:18 → ERH 07:35 → 2RSO 09:45 → OBSVTOIN 04-16 14:56 → 2RSO 04-16 15:05
PROVIDERS: ADMIT Family Medicine; ATTEND Family Medicine
PROC: 027034Z Dilation of Coronary Artery, One Artery with Drug-eluting Intraluminal Device, Percutaneous Approach (ICD-10-PCS; principal; 2017-04-16)
PROC: 4A023N7 Measurement of Cardiac Sampling and Pressure, Left Heart, Percutaneous Approach (ICD-10-PCS; 2017-04-16)
PROC: B2111ZZ Fluoroscopy of Multiple Coronary Arteries using Low Osmolar Contrast (ICD-10-PCS; 2017-04-16)
PROC: B2151ZZ Fluoroscopy of Left Heart using Low Osmolar Contrast (ICD-10-PCS; 2017-04-16)
DX: I21.4 Non-ST elevation (NSTEMI) myocardial infarction (principal); E11.65 Type 2 diabetes mellitus with hyperglycemia; I25.110 Atherosclerotic heart disease of native coronary artery with unstable angina pectoris; E66.9 Obesity, unspecified; E78.00 Pure hypercholesterolemia, unspecified; F41.9 Anxiety disorder, unspecified; I10 Essential (primary) hypertension; Z79.02 Long term (current) use of antithrombotics/antiplatelets; Z79.4 Long term (current) use of insulin; Z79.82 Long term (current) use of aspirin; Z82.49 Family history of ischemic heart disease and other diseases of the circulatory system; Z90.49 Acquired absence of other specified parts of digestive tract

== ENCOUNTER 2017-04-20 10:01 | Inpatient (IN) | payer MEDICARE ==
[2017-04-20 10:01] VITALS: BMI 43.9
--- NOTE | 2017-04-20 10:46 | ED PDOC ---
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 She also states that she has been experiencing nausea and difficulty breathing. The patient notes that she has a stent replacement last week and was discharged from the hospital 2 days ago. The patient states that she was instructed to follow up this week. The patient denies body aches, fevers, chills, headache, dizziness, dyspnea on exertion, cough, abdominal pain, vomiting, diarrhea, back pain, neck pain, urinary/bowel changes, or any other complaint. PMD: Dr. Jerrod Leo Marketing Representative: Dr. Giles Time/Duration: Other (3 AM) Symptom Onset: Sudden Symptom Course: Unchanged Activities at Onset: Rest, Light Context: Home Past Medical History - Provider Review Nursing Documentation Reviewed: Yes - Cardiac Hx Hypertension: Yes - Pulmonary Hx Respiratory Disorders: No - Neurological Hx Neurological Disorder: No - HEENT Hx HEENT Disorder: No - Renal Hx Renal Disorder: No - Endocrine/Metabolic Hx Diabetes Mellitus Type 2: Yes Hx Hypothyroidism: Yes - Hematological/Oncological Hx Blood Disorders: No - Integumentary Hx Dermatological Disorder: No - Musculoskeletal/Rheumatological Hx Falls: No - Gastrointestinal Hx Gastrointestinal Disorders: Yes (obese) - Genitourinary/Gynecological Hx Genitourinary Disorders: Yes Other/Comment: vaginal bleeding x 3 months, pt was scheduled to have sx in 3 days in vaginal area cancelled due to htn, has "2 bumps" - Psychiatric Hx Depression: Yes Hx Substance Use: No - Surgical History Hx Coronary Stent: Yes - Anesthesia Hx Anesthesia Reactions: No - Suicidal Assessment Feels Threatened In Home Enviroment: No Family/Social History - Physician Review Nursing Documentation Reviewed: Yes Family/Social History: No Known Family HX Smoking Status: Never Smoked Hx Alcohol Use: No Hx Substance Use: No Allergies/Home Meds Allergies/Adverse Reactions: Allergies Penicillins Allergy (Verified 04/20/17 10:09) RASH Home Medications: Home Meds Medication Instructions Recorded Confirmed Aspirin [Aspir 81] 81 mg PO DAILY 06/04/13 04/20/17 Atorvastatin [Lipitor] 10 mg PO HS 06/04/13 04/20/17 clonazePAM [clonAZEPAM] 0.5 mg PO HS 06/04/13 04/20/17 clonazePAM [clonAZEPAM] 0.5 mg PO QAM 06/04/13 04/20/17 ARIPiprazole [Abilify] 1 mg PO HS 04/15/17 04/20/17 Clonidine HCl [Catapres] 0.2 mg PO TID 04/15/17 04/20/17 Clopidogrel [Plavix] 75 mg PO QAM 04/15/17 04/20/17 Exenatide Microspheres [Bydureon 2 mg SQ QWK 04/15/17 04/20/17 Pen] Ezetimibe [Zetia] 10 mg PO HS 04/15/17 04/20/17 Furosemide [Lasix] 20 mg PO BID 04/15/17 04/20/17 Insulin Aspart Prot/Insuln Asp 25 unit SQ TID 04/15/17 04/20/17 [Novolog Mix 70-30 Vial] Labetalol [Trandate] 300 mg PO BID 04/15/17 04/20/17 Levothyroxine Sodium [Levoxyl] 50 mcg PO DAILY 04/15/17 04/20/17 Losartan [Cozaar] 100 mg PO DAILY 04/15/17 04/20/17 Venlafaxine [Effexor XR] 150 mg PO DAILY 04/15/17 04/20/17 amLODIPine [Norvasc] 10 mg PO HS 04/15/17 04/20/17 Review of Systems - Physician Review All systems were reviewed & negative as marked: Yes - Review of Systems Constitutional: absent: Fevers, Night Sweats Respiratory: SOB Cardiovascular: Chest Pain Gastrointestinal: Nausea. absent: Abdominal Pain, Diarrhea, Vomiting Genitourinary Female: absent: Urine Output Changes Musculoskeletal: absent: Back Pain, Neck Pain Neurological: absent: Headache, Dizziness Physical Exam Vital Signs Reviewed: Yes Vital Signs Temp Pulse Resp BP Pulse Ox 04/20/17 17:05 137/71 02/11/18 16:59 79 16 137/71 96 04/20/17 13:04 82 18 118/60 04/20/17 13:03 82 18 118/60 98 04/20/17 10:10 98.8 F 82 18 126/71 97 Temperature: Afebrile Blood Pressure: Normal Pulse: Regular Respiratory Rate: Normal Appearance: Positive for: Well-Appearing, Non-Toxic, Comfortable Pain Distress: None Mental Status: Positive for: Alert and Oriented X 3 - Systems Exam Head: Present: Atraumatic, Normocephalic Pupils: Present: PERRL Extroacular Muscles: Present: EOMI Conjunctiva: Present: Normal Mouth: Present: Moist Mucous Membranes Neck: Present: Normal Range of Motion Respiratory/Chest: Present: Clear to Auscultation, Good Air Exchange. No: Respiratory Distress, Accessory Muscle Use Cardiovascular: Present: Regular Rate and Rhythm, Normal S1, S2. No: Murmurs Abdomen: Present: Normal Bowel Sounds, Other (Obese). No: Tenderness, Distention, Peritoneal Signs Back: Present: Normal Inspection Upper Extremity: Present: Normal Inspection. No: Cyanosis, Edema Lower Extremity: Present: Normal Inspection. No: Edema, Swelling Neurological: Present: GCS=15, CN II-XII Intact, Speech Normal Skin: Present: Warm, Dry, Normal Color. No: Rashes Psychiatric: Present: Alert, Oriented x 3, Normal Insight, Normal Concentration Medical Decision Making ED Course and Treatment: 04/20/17 10:47 Impression: A 66 year old female presents to the emergency department complains of chest pain, nausea, shortness of breath since 03:00 AM. Differential Diagnosis included but are not limited to: Chest pain r/o ACS, r/ o CHF Plan: -- EKG -- Chest X-ray -- Labs -- Reassess and disposition Prior Visits: Notes and results from previous visits were reviewed. Patient was last seen in the emergency department on Progress Notes: EKG: Ordered, reviewed, and independently interpreted the EKG. Rate : 78 BPM Rhythm : NSR Interpretation : Non specific ST-T changes in inferior leads 3 and avf. Comparison : No change from 04/16/17 04/20/17 10:52: Chest X-ray, read and interpreted by me shows no acute infiltrates. 04/20/17 12:23: Discussed case in detail with Dr. Hill, covering for Dr. Giles who recommended patient be given a Lovenox dose of 1mg/ kg, aspirin and to continue Plavix. He agrees to admission. Patient's chest pain resolved. She will be admited to telemetry under Dr. Leo. Dr. Leo came to evaluate her in the ED and placed orders. - Critical Care Critical Care Minutes: 30 minutes - Lab Interpretations Lab Results: 04/20/17 10:16 04/20/17 10:16 Lab Results 04/20/17 10:16: Sodium 136, Potassium 4.2, Chloride 98, Carbon Dioxide 26, Anion Gap 16, BUN 21, Creatinine 1.1, Est GFR ( Amer) 60, Est GFR (Non- Af Amer) 49, Random Glucose 379 H* D, Calcium 9.9, Magnesium 1.8, Total Bilirubin 0.5, AST 18, ALT 36, Alkaline Phosphatase 168 H, Lactate Dehydrogenase 497, Total Creatine Kinase 82, Troponin I 0.01 D, NT-Pro-B Natriuret Pep 84.3, Total Protein 6.8, Albumin 3.9, Globulin 2.9, Albumin/ Globulin Ratio 1.3 04/20/17 10:16: WBC 5.2, RBC 4.16, Hgb 12.2, Hct 37.6, MCV 90.4, MCH 29.3, MCHC 32.4, RDW 14.4, Plt Count 218, MPV 10.4, Gran % 68.6 H, Lymph % (Auto) 22.0, [place] % (Auto) 6.1 H, Eos % (Auto) 2.7, Baso % (Auto) 0.6, Gran # 3.58, Lymph # ( Auto) 1.2, [place] # (Auto) 0.3, Eos # (Auto) 0.1, Baso # (Auto) 0.03 I have reviewed the lab results: Yes - RAD Interpretation Radiology Orders: 04/20/17 10:22 CHEST PORTABLE [RAD] Stat - EKG Interpretation Interpreted by ED Physician: Yes Type: 12 lead EKG - Medication Orders Current Medication Orders: Amlodipine Besylate (Norvasc) 10 mg PO HS ENRIQUETA Aspirin (Ecotrin) 81 mg PO DAILY ENRIQUETA Atorvastatin Calcium (Lipitor) 10 mg PO HS ENRIQUETA Clonazepam (Klonopin) 0.5 mg PO QAM ENRIQUETA PRN Reason: Protocol Clonazepam (Klonopin) 0.5 mg PO HS ENRIQUETA PRN Reason: Protocol Clonidine HCl (Catapres) 0.2 mg PO TID ENRIQUETA Last Admin: 04/20/17 14:10 Dose: 0.2 mg Clopidogrel Bisulfate (Plavix) 75 mg PO QAM ENRIQUETA Ezetimibe (Zetia) 10 mg PO HS ENRIQUETA Furosemide (Lasix) 20 mg PO BID ENRIQUETA Last Admin: 04/20/17 17:05 Dose: 20 mg MAR Blood Pressure Document 04/20/17 17:05 RG (Rec: 04/20/17 17:05 [id number]) Blood Pressure Blood Pressure (100/60-150/90) 137/71 Insulin Human Regular (Humulin R Med) 0 units SC ACHS ENRIUQETA PRN Reason: Protocol Last Admin: 04/20/17 17:12 Dose: 5 units MAR Blood Glucose Document 04/20/17 17:12 RG (Rec: 04/20/17 17:12 [id number]) Blood Glucose Finger Stick Blood Glucose (70-120) 237 Subcutaneous Administrations Document 04/20/17 17:12 RG (Rec: 04/20/17 17:12 [id number]) Injection Site MAR Injection Site Right Arm Charges for Administration # of Subcutaneous Administrations 1 Insulin Lispro Protam/Lispro Human (Humalog Mix 75/25) 25 units SC TID [facility] Levothyroxine Sodium (Synthroid) 50 mcg PO DAILY [facility] Losartan Potassium (Cozaar) 100 mg PO DAILY ENRIQUETA Non-Formulary Medication (Aripiprazole [Abilify]) 1 mg PO HS ENRIQUETA Exenatide Microspheres [ Bydureon Pen] 2 Mg (Home Med) 2 mg SQ QWK [facility] Venlafaxine HCl (Effexor Xr) 150 mg PO DAILY ENRIQUETA Discontinued Medications Insulin Human Regular (Humulin R) 6 units IVP STAT STA Stop: 04/20/17 11:39 Last Admin: 04/20/17 12:10 Dose: 6 units MAR Blood Glucose Document 04/20/17 12:10 RG (Rec: 04/20/17 12:10 [id number]) Blood Glucose Finger Stick Blood Glucose (70-120) 379 IVP Administration Document 04/20/17 12:10 RG (Rec: 04/20/17 12:10 [id number]) Charges for Administration # of IVP Administrations 1 - Scribe Statement The provider has reviewed the documentation as recorded by the Scribe Inessa Strauss Provider Sidneyibe Attestation: All medical record entries made by the Scribe were at my direction and personally dictated by me. I have reviewed the chart and agree that the record accurately reflects my personal performance of the history, physical exam, medical decision making, and the department course for this patient. I have also personally directed, reviewed, and agree with the discharge instructions and disposition. Disposition/Present on Arrival - Present on Arrival Any Indicators Present on Arrival: Yes History of DVT/PE: No History of Uncontrolled Diabetes: Yes Urinary Catheter: No History of Decub. Ulcer: No History Surgical Site Infection Following: None - Disposition Have Diagnosis and Disposition been Completed?: Yes Diagnosis: Chest pain Disposition: HOSPITALIZED Disposition Time: 11:52 Patient Plan: Observation Condition: FAIR
[2017-04-20 10:56] LABS: BASO # 0.03 K/mm3 (0.0-2.0); BASO % 0.6 % (0.0-3.0); EOS # 0.1 (0.0-0.7); EOS % 2.7 % (1.5-5.0); GRAN # 3.58 (1.4-6.5); GRAN % 68.6 % (50.0-68.0); HEMOGLOBIN 12.2 g/dL (12.0-16.0); LYMPH # 1.2 (1.2-3.4); MEAN CELL VOLUME 90.4 fl (80.0-105.0); MEAN CORPUSCULAR HEMOGLOBIN 29.3 pg (25.0-35.0); MEAN CORPUSCULAR HGB CONC 32.4 g/dl (31.0-37.0); MEAN PLATELET VOLUME 10.4 fl (7.0-11.0); MONO # 0.3 (0.1-0.6); MONO % 6.1 % (1.0-6.0); RBC 4.16 10^6/uL (3.5-6.1); RED CELL DISTRIBUTION WIDTH 14.4 % (11.5-14.5); WHITE BLOOD COUNT 5.2 10^3/ul (4.5-11.0)
--- NOTE | 2017-04-20 11:05 | RAD ---
HISTORY: Chest pain. COMPARISON: 04/15/2017. FINDINGS: LUNGS: No active pulmonary disease. PLEURA: No significant pleural effusion identified, no pneumothorax apparent. CARDIOVASCULAR: No radiographic findings to suggest acute or significant cardiovascular disease. OSSEOUS STRUCTURES: No significant abnormalities. VISUALIZED UPPER ABDOMEN: Normal. OTHER FINDINGS: None. IMPRESSION: No active disease. No significant interval change compared to the prior examination(s).
[2017-04-20 11:15] LABS: B-TYPE NATRIURETIC PEPTIDE 84.3 pg/mL (0-450); TROPONIN I 0.01 ng/mL
[2017-04-20 11:37] LABS: ALB/GLOB RATIO 1.3 (1.1-1.8); ALBUMIN 3.9 g/dL (3.0-4.8); CALCIUM 9.9 mg/dL (8.4-10.5); MAGNESIUM 1.8 mg/dL (1.7-2.2)
[2017-04-20] MEDS ORDERED: Insulin Regular 1 UNITS/0.01 ML ML IVP STA (11:38)
[2017-04-20] MEDS: Insulin Reg-MEDIUM-Coverage SC SCH ×3 (12:10→22:28)
[2017-04-20] MEDS ORDERED: Insulin Regular 1 UNITS/0.01 ML ML ONE (17:09)
[2017-04-20] MEDS: Insulin Lispro (humaLOG) MIX 75/25(10 ml) SC SCH ×2 (19:08→19:31)
--- NOTE | 2017-04-20 21:03 | CARD ---
APPROVED REPORT EKG Measurement Heart [id number] <Conclusion> Normal sinus rhythm Cannot rule out Anterior infarct, age undetermined Abnormal ECG
--- NOTE | 2017-04-20 22:16 | HP ---
HISTORY OF PRESENT ILLNESS: She was in the emergency room this morning. I was called down to put her in the hospital. 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 She also had a little bit of nauseousness and a little difficulty breathing. She recently had a stent placed in last week and discharged to come back on Friday for another stent placement with Dr. Giles. It turns out that last night she was told that her sister is dying of cancer in [place], and since then she has been very upset and I think she worked herself of having chest pain. She has a past medical history of CAD, hypertension, diabetes, and high cholesterol. She had two stents placed on 04/16/2017. She did have another stent placed this Friday or may be earlier. She had a sudden onset of chest pain. She has a history of hypertension, diabetes, and hypothyroidism. She is obese. She had vaginal bleeding 3 months ago. She is suppose to have procedures with [facility] C[facility]. She has been depressed, now she is more depressed since she found that yesterday her sister is dying. She has coronary stents. FAMILY HISTORY: Hypertension in the family. SOCIAL HISTORY: No smoker. No drinking. No drugs. ALLERGIES: SHE IS ALLERGIC TO PENICILLIN. MEDICATIONS: She takes aspirin, Lipitor, clonazepam, Abilify, Catapres, Plavix, exenatide microspheres, Zetia, Lasix, 70/30 NovoLog, Trandate, Levoxyl, Cozaar, Effexor and Norvasc. REVIEW OF SYSTEMS: She has no acute vision or hearing changes. No sore throat. She has chest pains, pressure, left arm pain, little shortness of breath and nauseousness. No abdominal pain. No problems urinating. No back pain. No leg pain. No headaches or dizziness. No sweating. She is very depressed about her sister. PHYSICAL EXAMINATION: VITAL SIGNS: She has a 98.8 temperature, 82 pulse, 18 respiratory rate, 126/71 blood pressure, 97% and O2 sat on room air. GENERAL: She is well appearing, sad, nontoxic, comfortable at this time, and alert and oriented x3. HEENT: Head is atraumatic, normocephalic. Extraocular muscles are intact. Pupils are equal and reactive to light and accommodation. Throat is moist. NECK: Supple. Thyroid is midline. HEART: Regular rate. Normal S1, S2. LUNGS: Clear to auscultation bilaterally. No wheezes, rhonchi or rales. ABDOMEN: Soft, nontender. Positive bowel sounds. She is obese. No guarding. No rebound. No CVA tenderness. EXTREMITIES: Trace edema bilaterally. She can move all four extremities well. NEUROLOGIC: GCS is 15. Cranial nerves II through XII grossly intact. Speech is normal. Alert and oriented x3. SKIN: Warm and dry. No apparent rashes or ulcers appreciated. LYMPH: No appreciable palpable lymphadenopathy. LABORATORY DATA: She had some tests and some tests are not back yet. She has a 5.2 white count, 12.2 hemoglobin, 37.6 hematocrit, and 218 platelets. CBC is back but chemistry is not back. Awaiting for troponin, BMP and magnesium. I put her back on her medications, put her on a diet, do insulin coverage, oxygen, Cardiology, checking troponins,waiting for them to come back. for chest pain. Vladimir Leo DO MTDD
[2017-04-20] MEDS: ARIPIPRAZOLE 1 MG PO SCH (22:28)
[2017-04-21 06:19] LABS: HEMOGLOBIN 12.7 g/dL (12.0-16.0); MEAN CELL VOLUME 90.7 fl (80.0-105.0); MEAN CORPUSCULAR HEMOGLOBIN 29.5 pg (25.0-35.0); MEAN CORPUSCULAR HGB CONC 32.5 g/dl (31.0-37.0); MEAN PLATELET VOLUME 10.3 fl (7.0-11.0); RBC 4.31 10^6/uL (3.5-6.1); RED CELL DISTRIBUTION WIDTH 14.3 % (11.5-14.5); WHITE BLOOD COUNT 4.7 10^3/ul (4.5-11.0)
[2017-04-21 06:47] LABS: ALB/GLOB RATIO 1.2 (1.1-1.8); ALBUMIN 3.7 g/dL (3.0-4.8); ALT/SGPT 43 U/L (7-56); AST/SGOT 18 U/L (14-36); BLOOD UREA NITROGEN 16 mg/dL (7-21); CALCIUM 9.5 mg/dL (8.4-10.5); GFR AFRICAN-AMERICAN > 60; GFR NON-AFRICAN AMERICAN > 60
[2017-04-21] MEDS: Insulin Reg-MEDIUM-Coverage SC SCH ×4 (08:29→21:38)
[2017-04-21] MEDS: Insulin Lispro (humaLOG) MIX 75/25(10 ml) SC SCH ×3 (09:57→17:29)
[2017-04-21] MEDS: Venlafaxine 75 mg ER Cap PO SCH (09:57)
[2017-04-21] MEDS: Levothyroxine 50 MCG TAB PO SCH (09:58)
[2017-04-21] MEDS: ARIPIPRAZOLE 1 MG PO SCH (21:23)
--- NOTE | 2017-04-21 23:45 | CON ---
DATE: CARDIOLOGY CONSULTATION HISTORY OF PRESENT ILLNESS: History was obtained via Cameroonian narrow fabric calenderer who is the nurse ortho assistant on the floor. The patient is 66-year-old Cameroonian female who has a history of coronary artery disease, hypertension, diabetes mellitus, and hyperlipidemia, status post coronary stenting five days ago and the patient was supposed to present for another stenting tomorrow, Friday; however, she presented earlier because of chest pain. The patient claims to have been compliant with her medications, but she does not know the names of her medications. The cardiac catheterization on the 16 of April revealed an extensive 70 to 80% stenosis of the proximal right coronary artery, and in-stent stenosis of mid portion of the LAD with normal ejection fraction. The patient underwent successful JUNIOR ESTIMATOR and stent with 90% stenosis across the LAD and the patient was supposed to come back in a week for PCI to the RCA. SOCIAL HISTORY: Nonsmoker, nondrinker. MEDICATIONS: Abilify 1 mg once a day, clonidine 0.2 mg t.i.d., Cozaar 100 mg once a day, aspirin 81 mg once a day, Effexor 150 mg twice a day, Lipitor 10 mg once a day, Plavix 75 mg once a day, Norvasc 10 mg once a day, Synthroid 50 mcg once a day. PHYSICAL EXAMINATION: GENERAL: Patient is an elderly female, who does not appear to be in any distress. VITAL SIGNS: Blood pressure 152/77, heart rate 84, temperature 98.3, respirations 16. HEENT: Normocephalic. NECK: No JVD. CHEST: Clear. HEART: S1 and S2 regular. ABDOMEN: Soft. EXTREMITIES: No edema. LABORATORY DATA: CBC is within normal limits. Today's SMA-7 is within normal limits except for glucose of 218. Three sets of troponins are negative. EKG reveals normal sinus rhythm, mostly with poor R-wave progression. ASSESSMENT: 1. Coronary artery disease, status post chronic stenting to an in-stent stenosis of the mid left anterior descending artery with significant proximal right coronary artery. 2. Uncontrolled diabetes mellitus. 3. Hypertension. RECOMMENDATIONS: Continue current aspirin and Plavix, Lipitor, clonidine, and Cozaar therapy. The patient will be observed in telemetry until her scheduled procedures tomorrow. Kurtis Ross MD [facility] # [id number]
--- NOTE | 2017-04-22 07:55 | DS ---
HISTORY OF PRESENT ILLNESS: I saw her resting in bed this morning. She is doing quite well. No more chest pain or shortness of breath. I believe this all came about because her sister is dying in another country and she got very emotional, very upset. PHYSICAL EXAMINATION: VITAL SIGNS: She has 98 temperature, 74 pulse, 135/70 blood pressure, 20 respiratory rate, 97% O2 sat on room air. HEENT: Head is atraumatic, normocephalic. Throat is moist. NECK: Supple. HEART: Regular rate. LUNGS: Clear to auscultation. ABDOMEN: Soft, obese. EXTREMITIES: No edema. MEDICATIONS: She is currently on Abilify, Catapres, Cozaar, Ecotrin, Effexor, Bydureon pen, Humalog 75/25 insulin coverage, Klonopin, Lasix, Lipitor, Norvasc, Plavix, Synthroid, Zetia. LABORATORY DATA: She has a 140 sodium, potassium 4.1, BUN 16, creatinine 0.9, GFR is greater than 60, sugar is 280. Calcium is 9.5. Total bili is 0.6, AST is 18, ALT is 43, alk phos 172, total protein 6.8 and TSH 3.05. White count is 4.7, hemoglobin 12.7, hematocrit 39.1, platelets of 227. She had 3 troponins; they were all less than 0.01. PLAN: Waiting for Cardiology to see her today. She is feeling better. No more chest pain. I will try and discharge her. This is an observation status situation and then I believe she is going to come in tomorrow for outpatient cardiac cath again. Right now she is improved. We will see what Cardiology wants to do, but for this observation and admission, it looks like she should go home, take the medications, and come in tomorrow for the cath. We will discuss with Cardio after they see Aislinn. Vladimir Leo DO
[2017-04-22] MEDS ORDERED: Lidocaine 2% Inj (20ml) ONE (08:21)
[2017-04-22] MEDS ORDERED: Iohexol 350mgl/ml 50 ML ONE (08:22)
[2017-04-22] MEDS ORDERED: Iodixanol 320 MG/ML 100 ML BOTTLE IV ONE (08:22)
[2017-04-22] MEDS ORDERED: Iodixanol 320 MG/ML 200 ML BOTTLE IV ONE (08:22)
[2017-04-22] MEDS ORDERED: Midazolam 2 MG/2 ML VIAL ONE ×3 (08:22→09:42)
[2017-04-22] MEDS ORDERED: HEPARIN SODIUM/NS 2,000 ML IV ONE (08:22)
[2017-04-22] MEDS ORDERED: Nitroglycerin 50mg in D5W 0 MG/0 ML BOTTLE IV ONE (08:23)
[2017-04-22] MEDS ORDERED: Adenosine 90 mg/30mL IV ONE (09:10)
[2017-04-22] MEDS: Insulin Lispro (humaLOG) MIX 75/25(10 ml) SC SCH ×3 (10:00→17:59)
[2017-04-22] MEDS ORDERED: Sodium Chloride 0.9% 1,000 ML IV SCH (10:45)
[2017-04-22] MEDS: Insulin Reg-MEDIUM-Coverage SC SCH ×4 (11:04→21:40)
--- NOTE | 2017-04-22 13:14 | PN ---
DATE: SUBJECTIVE: She was not discharged yesterday. She was kept and she went for cardiac cath this morning. She will be kept overnight one more night and then discharge tomorrow. She had a stent placed by Dr. Giles. She is on Abilify, Catapres, Cozaar, Ecotrin, Effexor, Bydureon, insulin, Klonopin, Lasix, Lipitor, Norvasc, Plavix, IV fluids, Synthroid and Zetia. She is lying comfortably in bed. No chest pain or shortness of breath. She has got to lie for 6 hours, not hungry yet. PHYSICAL EXAMINATION: VITAL SIGNS: 97.7 temp, 80 pulse, 129/67 blood pressure, 18 respiratory rate, 96% O2 sat on room air. HEENT: Head is atraumatic, normocephalic. HEART: Regular rate. LUNGS: Decreased breath sounds, but clear. ABDOMEN: Soft, obese. EXTREMITIES: No edema. LABORATORY DATA: She has a 4.7 white count, 12.7 hemoglobin, 227 platelets. She has a 140 sodium, potassium 4.1, BUN 16, creatinine 0.9, GFR is greater than 60, sugar is 218, calcium is 9.5, AST is 18, ALT is 43, alk phos 172, total protein 6.8. ASSESSMENT AND PLAN: She was seen by Dr. Giles. A stent was placed. She will be watched overnight and she will be discharged tomorrow. We will check her labs tomorrow morning. She has to lie flat for 6 hours. They could feed her while she is lying down if she gets hungry. Discussed with Dr. Giles and hopefully she will get discharged tomorrow. Phoebe Leo DO
[2017-04-22] MEDS: Venlafaxine 75 mg ER Cap PO SCH (13:38)
[2017-04-22] MEDS: Levothyroxine 50 MCG TAB PO SCH (13:38)
[2017-04-22] MEDS: ARIPIPRAZOLE 1 MG PO SCH (21:14)
--- NOTE | 2017-04-22 22:09 | CARDCATH ---
PROCEDURE DATE: 04/20/2017 CARDIAC CATHETERIZATION AND PTCA HISTORY: The patient is a 66-year-old woman who presents with unstable angina. She was found to have multivessel CAD. Patient underwent successful PTCA and stent of the LAD last week and is brought back for PTCA of the RCA. The left femoral artery was cannulated with a 6-Georgian sheath. There were no complications. Left coronary arteriography, followed by FFR, and followed by PTCA and stent of the RCA was performed. There were no complications. I performed moderate sedation, which included the presence of an independent trained observer that assisted in monitoring the patient's level of consciousness and physiologic status. After administration of Versed and fentanyl, my intra-service time was 30 minutes. FINDINGS: Findings on catheterization revealed a patent stent in the LAD that was placed last week. The RCA revealed a long 70% stenoses in the proximal portion. FFR was performed, which was 0.87 and 0.88. Because of her ongoing symptoms and her borderline FFR, we proceeded to PTCA and stent. The guiding catheter was placed in the ostium of the RCA and 0.014 was used to cross the lesion. A 2.75 x 18 mm drug-eluting stent was placed and deployed in the RCA. Repeat coronary arteriography revealed an excellent result with no residual stenosis and ROSA-III flow. Manual compression will be used to close the femoral artery site. The patient tolerated the procedure well. SUMMARY: The procedure was successful PTCA and stent of a critically-stenosed RCA stenoses. Drug-eluting stents were utilized. FFR was borderline abnormal. Given these findings, patient will need to remain on aspirin indefinitely and Plavix for at least a year and undergo a strict cardiac risk reduction program. Zachary Giles MD
[2017-04-22 23:57] VITALS: RESP 20
[2017-04-23 05:46] VITALS: TEMP 97.6; O2SAT 97
[2017-04-23 06:35] LABS: BASO # 0.02 K/mm3 (0.0-2.0); BASO % 0.4 % (0.0-3.0); EOS # 0.2 (0.0-0.7); EOS % 3.4 % (1.5-5.0); GRAN # 3.45 (1.4-6.5); GRAN % 64.9 % (50.0-68.0); HEMOGLOBIN 13.3 g/dL (12.0-16.0); LYMPH # 1.2 (1.2-3.4); LYMPH % 23.2 % (22.0-35.0); MEAN CELL VOLUME 91.5 fl (80.0-105.0); MEAN CORPUSCULAR HEMOGLOBIN 29.6 pg (25.0-35.0); MEAN CORPUSCULAR HGB CONC 32.4 g/dl (31.0-37.0); MEAN PLATELET VOLUME 9.9 fl (7.0-11.0); MONO # 0.4 (0.1-0.6); MONO % 8.1 % (1.0-6.0); RBC 4.49 10^6/uL (3.5-6.1); RED CELL DISTRIBUTION WIDTH 14.3 % (11.5-14.5); WHITE BLOOD COUNT 5.3 10^3/ul (4.5-11.0)
[2017-04-23 06:50] LABS: ALB/GLOB RATIO 1.2 (1.1-1.8); ALBUMIN 3.6 g/dL (3.0-4.8); ALT/SGPT 38 U/L (7-56); AST/SGOT 21 U/L (14-36); BLOOD UREA NITROGEN 16 mg/dL (7-21); GFR AFRICAN-AMERICAN > 60; GFR NON-AFRICAN AMERICAN 55
[2017-04-23] MEDS: Insulin Reg-MEDIUM-Coverage SC SCH (08:12)
--- NOTE | 2017-04-23 08:15 | CARD ---
APPROVED REPORT EKG Measurement Heart [id number] <Conclusion> Normal sinus rhythm NSSTW changes
[2017-04-23] MEDS: Venlafaxine 75 mg ER Cap PO SCH (09:13)
[2017-04-23 09:19] VITALS: BP 153/81; PULSE 118
[2017-04-23] MEDS: Insulin Lispro (humaLOG) MIX 75/25(10 ml) SC SCH (09:25)
[2017-04-23] MEDS: Levothyroxine 50 MCG TAB PO SCH (09:27)
--- NOTE | 2017-04-23 09:52 | PN ---
DATE: 04/23/2017 CARDIOLOGY FOLLOWUP SUBJECTIVE: The patient is chest pain free, ambulating without issues. PHYSICAL EXAMINATION: VITAL SIGNS: Blood pressure 150/74 with heart rates in the 80s. NECK: Negative JVD. LUNGS: Without rales. HEART: Reveals S1, S2. EXTREMITIES: Without edema. SKIN: The left groin site is stable. LABORATORY DATA: Hemoglobin is 13.3. Chemistries: BUN and creatinine are unremarkable. IMPRESSION: 1. Stable post percutaneous transluminal coronary angioplasty and stent. 2. Multivessel coronary artery disease. 3. Diabetes mellitus. 4. Hypercholesterolemia. PLAN: Given these findings, the patient is stable for discharge today. I have instructed the patient through her son to remain on Plavix for at least a year. The patient will be following up with her doctor in [place]. Zachary Giles MD MTDD
--- NOTE | 2017-04-24 07:22 | DS ---
She is status post with stent placement by Dr. Giles. She is comfortable, resting in bed, looking forward to going home. She is on Abilify, Catapres, Cozaar, Ecotrin, Effexor, Bydureon, Humalog, Humulin, Klonopin, Lasix, Lipitor, Norvasc, Plavix, Synthroid, and Zetia. She will be on the same medications when she goes home. PHYSICAL EXAMINATION: VITAL SIGNS: She has 97.6 temperature, 83 pulse, 150/74 blood pressure, 20 respiratory rate, 97% sat on room air on room air. HEENT: Head is atraumatic, normocephalic. HEART: Regular rate. LUNGS: Clear to auscultation. ABDOMEN: Soft, obese. EXTREMITIES: No edema. LABORATORY DATA: She has 5.3 white count, 13.3 hemoglobin, 224 platelets. 139 sodium, potassium is 4, BUN 16, creatinine is 1, GFR is 55, sugar is 169, calcium is 9. Total bili is 0.5, AST 21, ALT is 38, alk phos 176, total protein 6.6. She is being seen by Dr. Giles. The plan is to be discharged today. She will go home. She has medications at home. If they need anything, they could call me; I would give it over the phone. I would like her to be on a very strict cardiac risk reduction program. She will take her Plavix for least a year. She has to watch a low-cholesterol, low-salt, low-sugar diet. Hopefully, she will lose some weight and go for walks. She is on observation here for CAD, chest pain and also a cath and stent placement. Vladimir Leo DO
[2017-04-27] MEDS ORDERED: EXENATIDE MICROSPHERES 2 MG SQ SCH (10:00)
== END 2017-04-23 11:54 | disposition home or self-care (01) | DRG 247 ==
LOC: ED 10:01 → ERH 11:59 → 3RSO 17:44 → OBSVTOIN 04-21 09:30 → 2RSO 04-22 10:36
PROVIDERS: ADMIT Family Medicine; ATTEND Family Medicine
PROC: 027034Z Dilation of Coronary Artery, One Artery with Drug-eluting Intraluminal Device, Percutaneous Approach (ICD-10-PCS; principal; 2017-04-22)
PROC: 4A033BC Measurement of Arterial Pressure, Coronary, Percutaneous Approach (ICD-10-PCS; 2017-04-22)
PROC: B2111ZZ Fluoroscopy of Multiple Coronary Arteries using Low Osmolar Contrast (ICD-10-PCS; 2017-04-22)
DX: I25.110 Atherosclerotic heart disease of native coronary artery with unstable angina pectoris (principal); E03.9 Hypothyroidism, unspecified; E66.9 Obesity, unspecified; E78.00 Pure hypercholesterolemia, unspecified; I10 Essential (primary) hypertension; E11.9 Type 2 diabetes mellitus without complications; Z79.02 Long term (current) use of antithrombotics/antiplatelets; Z79.82 Long term (current) use of aspirin; Z82.49 Family history of ischemic heart disease and other diseases of the circulatory system

== ENCOUNTER 2017-05-03 20:05 | Emergency (ER) | payer MEDICARE ==
[2017-05-03 20:24] VITALS: BMI 45.7
[2017-05-03 20:31] VITALS: BP 175/67; PULSE 89; RESP 18; TEMP 98.4; O2SAT 100
--- NOTE | 2017-05-03 20:34 | ED PDOC ---
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 2 days ago she developed left groin swelling and pain. No fever or chills. No chest pain palpitations or dyspnea. She was directed to the emergency department by her molasses and caramel operator. Patient is morbidly obese and difficult to examine. I do not appreciate a hematoma. There is no ecchymosis in the groin. Past Medical History - Cardiac Hx Hypertension: Yes - Pulmonary Hx Respiratory Disorders: No - Neurological Hx Neurological Disorder: No - HEENT Hx HEENT Disorder: No - Renal Hx Renal Disorder: No - Endocrine/Metabolic Hx Diabetes Mellitus Type 2: Yes Hx Hypothyroidism: Yes - Hematological/Oncological Hx Blood Disorders: No - Integumentary Hx Dermatological Disorder: No - Musculoskeletal/Rheumatological Hx Falls: No - Gastrointestinal Hx Gastrointestinal Disorders: Yes (obese) - Genitourinary/Gynecological Hx Genitourinary Disorders: Yes Other/Comment: vaginal bleeding x 3 months, pt was scheduled to have sx in 3 days in vaginal area cancelled due to htn, has "2 bumps" - Psychiatric Hx Depression: Yes Hx Substance Use: No - Surgical History Hx Coronary Stent: Yes - Anesthesia Hx Anesthesia Reactions: No - Suicidal Assessment Feels Threatened In Home Enviroment: No Family/Social History - Physician Review Nursing Documentation Reviewed: Yes Family/Social History: Unknown Family HX Smoking Status: Never Smoked Hx Alcohol Use: No Hx Substance Use: No Allergies/Home Meds Allergies/Adverse Reactions: Allergies Penicillins Allergy (Verified 04/20/17 10:09) RASH Home Medications: Home Meds Medication Instructions Recorded Confirmed Aspirin [Aspir 81] 81 mg PO DAILY 06/04/13 05/03/17 Atorvastatin [Lipitor] 10 mg PO HS 06/04/13 05/03/17 clonazePAM [clonAZEPAM] 0.5 mg PO HS 06/04/13 05/03/17 clonazePAM [clonAZEPAM] 0.5 mg PO PENDING SALE TO [facility] 06/04/13 05/03/17 ARIPiprazole [Abilify] 1 mg PO HS 04/15/17 05/03/17 Clonidine HCl [Catapres] 0.2 mg PO TID 04/15/17 05/03/17 Clopidogrel [Plavix] 75 mg PO QAM 04/15/17 05/03/17 Exenatide Microspheres [Bydureon 2 mg SQ QWK 04/15/17 05/03/17 Pen] Ezetimibe [Zetia] 10 mg PO HS 04/15/17 05/03/17 Furosemide [Lasix] 20 mg PO BID 04/15/17 05/03/17 Insulin Aspart Prot/Insuln Asp 25 unit SQ TID 04/15/17 05/03/17 [Novolog Mix 70-30 Vial] Labetalol [Trandate] 300 mg PO BID 04/15/17 05/03/17 Levothyroxine Sodium [Levoxyl] 50 mcg PO DAILY 04/15/17 05/03/17 Losartan [Cozaar] 100 mg PO DAILY 04/15/17 05/03/17 Venlafaxine [Effexor XR] 150 mg PO DAILY 04/15/17 05/03/17 amLODIPine [Norvasc] 10 mg PO HS 04/15/17 05/03/17 Review of Systems - Physician Review All systems were reviewed & negative as marked: Yes - Review of Systems Constitutional: Fatigue. absent: Fevers Respiratory: absent: SOB, Cough Cardiovascular: absent: Chest Pain, Palpitations Gastrointestinal: absent: Abdominal Pain, Nausea, Vomiting Neurological: absent: Headache, Dizziness Physical Exam Vital Signs Temp Pulse Resp BP Pulse Ox 05/03/17 21:04 89 05/03/17 20:17 98.4 F 89 18 175/67 H 100 Temperature: Afebrile Blood Pressure: Hypertensive Pulse: Regular Respiratory Rate: Normal Appearance: Positive for: Well-Appearing, Non-Toxic, Comfortable, Other (Obese) Pain Distress: None Mental Status: Positive for: other (Awake alert and cooperative) - Systems Exam Head: Present: Atraumatic, Normocephalic Pupils: Present: PERRL Extroacular Muscles: Present: EOMI Conjunctiva: Present: Normal Mouth: Present: Moist Mucous Membranes Neck: Present: Normal Range of Motion Respiratory/Chest: Present: Clear to Auscultation, Good Air Exchange, Decreased Breath Sounds. No: Respiratory Distress, Accessory Muscle Use Cardiovascular: Present: Regular Rate and Rhythm, Normal S1, S2. No: Murmurs Abdomen: Present: Normal Bowel Sounds. No: Tenderness, Distention, Peritoneal Signs, Rebound, Guarding Back: Present: Normal Inspection Upper Extremity: Present: Normal Inspection. No: Cyanosis, Edema Lower Extremity: Present: Normal Inspection, Normal ROM, Neurovascularly Intact , Other (Unable to palpate distal pulses, though both feet are warm. There is no cyanosis). No: Edema, CALF TENDERNESS, Cyanosis, Tenderness, Swelling Neurological: Present: GCS=15, CN II-XII Intact, Speech Normal, Motor Func Grossly Intact Skin: Present: Warm, Dry, Normal Color. No: Rashes Medical Decision Making ED Course and Treatment: 05/03/17 20:35 Both venous and arterial Dopplers have been ordered to rule out DVT and rule out pseudoaneurysm 05/03/17 21:13 Patient became diaphoretic and blood sugar was checked and found to be 35. She has not eaten since 2 PM today. She did take her insulin. There is currently nothing in the refrigerator for the patient to eat or drink. An IV was started and D50 given. 05/03/17 21:36 A diet has been obtained for the patient. 05/03/17 21:45 Blood sugar is 143 and the patient is eating. - Lab Interpretations Lab Results: Lab Results 05/03/17 21:11: POC Glucose (mg/dL) 35 L* - RAD Interpretation Radiology Orders: 05/03/17 20:24 DUPLEX LOWER EXT ART LT LMTD [US] Stat 05/03/17 20:25 DUPLEX LOWER EXTRM VEIN LEFT [US] Stat Venous Doppler of the left lower extremity is negative for DVT as read by the radiologist. Arterial Doppler as read by the radiologist is negative for pseudoaneurysm. Fisher Sponge Hooking: Radiologist - Medication Orders Current Medication Orders: Discontinued Medications Dextrose (Dextrose 50% Inj) 50 ml IVP STAT STA Stop: 05/03/17 21:15 Last Admin: 05/03/17 21:14 Dose: 50 ml IVP Administration Document 05/03/17 21:14 ELAINE (Rec: 05/03/17 21:41 ELAINE [id number]) Charges for Administration # of IVP Administrations 1 Disposition/Present on Arrival - Present on Arrival Any Indicators Present on Arrival: No History of DVT/PE: No History of Uncontrolled Diabetes: Yes Urinary Catheter: No History of Decub. Ulcer: No History Surgical Site Infection Following: None - Disposition Have Diagnosis and Disposition been Completed?: Yes Diagnosis: Hypoglycemia, Hematoma Disposition: HOME/ ROUTINE Disposition Time: 21:53 Patient Plan: Discharge Condition: GOOD Discharge Instructions (ExitCare): Low Blood Sugar in People With Diabetes Additional Instructions: Must eat when taking insulin as prescribed. Follow-up with PMD and molasses and caramel operator. Follow-up in the ER as needed. Referrals: Rhonda Schmitz, [Primary Care Provider] - Follow up with primary Forms: [employer] (Romansh)
[2017-05-03] MEDS ORDERED: Dextrose 50% SYRINGE Inj (50 ml) ONE (21:12)
[2017-05-03] MEDS ORDERED: Dextrose 50% SYRINGE Inj (50 ml) IVP STA (21:14)
--- NOTE | 2017-05-04 11:29 | US ---
PROCEDURE: Left lower extremity venous US HISTORY: Leg pain and swelling. Evaluate for DVT. PHYSICIAN(S): Zachary Monet MD. TECHNIQUE: Duplex sonography and color-flow Doppler with graded compression were used to evaluate the deep venous system of the left lower extremity. FINDINGS: The visualized deep venous system of the left lower extremity is sonographically normal and compressible. Normal wave forms and augmentation are seen. There is no sonographic evidence for deep venous thrombosis in the visualized segments of the left lower extremity. IMPRESSION: 1. No sonographic evidence for deep venous thrombosis in the visualized segments of the left lower extremity.
--- NOTE | 2017-05-04 11:33 | US ---
PROCEDURE: Duplex arterial ultrasound of the right groin. HISTORY: Recent cardiac catheterization. Pain and pulsatile mass in the right groin. Evaluate for pseudoaneurysm or fistula. PHYSICIAN(S): Zachary Monet MD. FINDINGS: The right common femoral artery is patent with a normal triphasic waveform. No sonographic evidence of a pseudoaneurysm or AV fistula is seen. The right superficial femoral artery and profunda femoral artery are patent proximally. The visualized venous segments the right groin are patent and compressible. IMPRESSION: 1. No sonographic evidence for pseudoaneurysm or AV fistula in the right groin.
--- NOTE | 2017-05-04 14:59 | CARD ---
APPROVED REPORT EKG Measurement Heart [id number] <Conclusion> Normal sinus rhythm Nonspecific T wave abnormality Abnormal ECG
== END 2017-05-03 22:00 | disposition home or self-care (01) ==
LOC: ED 20:05
DX: E11.649 Type 2 diabetes mellitus with hypoglycemia without coma (principal); Z79.4 Long term (current) use of insulin; S30.1XXA Contusion of abdominal wall, initial encounter; Y84.0 Cardiac catheterization as the cause of abnormal reaction of the patient, or of later complication, without mention of misadventure at the time of the procedure; Y92.89 Other specified places as the place of occurrence of the external cause; I10 Essential (primary) hypertension; Z95.5 Presence of coronary angioplasty implant and graft

== ENCOUNTER 2017-09-13 08:09 | Emergency (ER) | payer MEDICARE, MEDICAID ==
[2017-09-13 08:10] VITALS: BMI 45.7
[2017-09-13 08:37] VITALS: RESP 18
--- NOTE | 2017-09-13 08:49 | ED PDOC ---
Arrival/HPI - General Chief Complaint: Foreign Body Time Seen by Provider: 09/13/17 08:41 Historian: Patient - History of Present Illness Time/Duration: Prior to Arrival Symptom Onset: Sudden Symptom Course: Unchanged Severity Level: Mild Associated Symptoms (Text): 09/13/17 08:46 Patient was scratching her left ear with her index fingernail. Her false nails broke off and the nail is stuck in her ear canal on the left. Past Medical History - Reproductive Menopause: Yes - Cardiac Hx Hypertension: Yes - Pulmonary Hx Respiratory Disorders: No - Neurological Hx Neurological Disorder: No - HEENT Hx HEENT Disorder: No - Renal Hx Renal Disorder: No - Endocrine/Metabolic Hx Diabetes Mellitus Type 2: Yes Hx Hypothyroidism: Yes - Hematological/Oncological Hx Blood Disorders: No - Integumentary Hx Dermatological Disorder: No - Musculoskeletal/Rheumatological Hx Falls: No - Gastrointestinal Hx Gastrointestinal Disorders: Yes (obese) - Genitourinary/Gynecological Hx Genitourinary Disorders: Yes - Psychiatric Hx Depression: Yes Hx Substance Use: No - Surgical History Hx Coronary Stent: Yes - Anesthesia Hx Anesthesia Reactions: No - Suicidal Assessment Feels Threatened In Home Enviroment: No Family/Social History - Physician Review Nursing Documentation Reviewed: Yes Family/Social History: Unknown Family HX Smoking Status: Never Smoked Hx Alcohol Use: No Hx Substance Use: No Allergies/Home Meds Allergies/Adverse Reactions: Allergies Penicillins Allergy (Verified 09/13/17 08:37) RASH Home Medications: Home Meds Medication Instructions Recorded Confirmed Aspirin [Aspir 81] 81 mg PO DAILY 06/04/13 09/13/17 Atorvastatin [Lipitor] 10 mg PO 06/04/13 09/13/17 clonazePAM [clonAZEPAM] 0.5 mg PO 06/04/13 09/13/17 clonazePAM [clonAZEPAM] 0.5 mg PO QAM 06/04/13 09/13/17 ARIPiprazole [Abilify] 1 mg PO 04/15/17 09/13/17 Clonidine HCl [Catapres] 0.2 mg PO TID 04/15/17 09/13/17 Clopidogrel [Plavix] 75 mg PO QAM 04/15/17 09/13/17 Exenatide Microspheres [Bydureon 2 mg SQ QWK 04/15/17 09/13/17 Pen] Ezetimibe [Zetia] 10 mg PO HS 04/15/17 09/13/17 Furosemide [Lasix] 20 mg PO BID 04/15/17 09/13/17 Insulin Aspart Prot/Insuln Asp 25 unit SQ TID 04/15/17 09/13/17 [Novolog Mix 70-30 Vial] Labetalol [Trandate] 300 mg PO BID 04/15/17 09/13/17 Levothyroxine Sodium [Levoxyl] 50 mcg PO DAILY 04/15/17 09/13/17 Losartan [Cozaar] 100 mg PO DAILY 04/15/17 09/13/17 Venlafaxine [Effexor XR] 150 mg PO DAILY 04/15/17 09/13/17 amLODIPine [Norvasc] 10 mg PO HS 04/15/17 09/13/17 Review of Systems - Physician Review All systems were reviewed & negative as marked: Yes Physical Exam Vital Signs Temp Pulse Resp BP Pulse Ox 09/13/17 08:35 98.2 F 88 18 129/83 100 Temperature: Afebrile Blood Pressure: Normal Pulse: Regular Respiratory Rate: Normal Appearance: Positive for: Well-Appearing, Non-Toxic, Comfortable Pain Distress: None Mental Status: Positive for: Alert and Oriented X 3 - Systems Exam Ears: Present: NORMAL TM, Normal Canal, Other (Left ear canal foreign body.). No: Erythema, TM Bulging, Fluid, TM Perf Medical Decision Making ED Course and Treatment: 09/13/17 08:48 False nail was removed by myself using alligator forceps. Tympanic membrane is clear postprocedure. Disposition/Present on Arrival - Present on Arrival Any Indicators Present on Arrival: No History of DVT/PE: No History of Uncontrolled Diabetes: Yes Urinary Catheter: No History of Decub. Ulcer: No History Surgical Site Infection Following: None - Disposition Have Diagnosis and Disposition been Completed?: Yes Diagnosis: Ear foreign body Disposition: HOME/ ROUTINE Disposition Time: 08:49 Patient Plan: Discharge Condition: GOOD Discharge Instructions (ExitCare): Removal of Foreign Body in Ear, Child, Removing Objects Stuck in the Ear
[2017-09-13 09:04] VITALS: BP 129/74; PULSE 72; TEMP 98.5; O2SAT 99
== END 2017-09-13 09:14 | disposition home or self-care (01) ==
LOC: ED 08:09
DX: T16.2XXA Foreign body in left ear, initial encounter (principal); X58.XXXA Exposure to other specified factors, initial encounter; E11.9 Type 2 diabetes mellitus without complications; I10 Essential (primary) hypertension; E03.9 Hypothyroidism, unspecified

== ENCOUNTER 2018-04-07 11:21 | Inpatient (IN) | payer MEDICAID, MEDICARE ==
[2018-04-07 11:26] VITALS: BMI 38.4
[2018-04-07] MEDS ORDERED: Insulin Regular 1 UNITS/0.01 ML ML IVP STA (11:47)
[2018-04-07] MEDS ORDERED: Sodium Chloride 0.9% 1,000 ML IV STA (11:47)
--- NOTE | 2018-04-07 12:07 | ED PDOC ---
Arrival/HPI - General Chief Complaint: Chest Pain Time Seen by Provider: 04/07/18 11:25 Historian: Patient, Family - History of Present Illness Narrative History of Present Illness (Text): 04/07/18 11:41 Aislinn Kim is a 67 year old female, whose past medical history includes diabetes, hypertension, and CAD with 2 coronary stent (placed recently in 04/2017), who presents to the Emergency department for constant chest discomfort since waking up at 12:00 AM. Patient describes discomfort as a squeezing sensation localized to the left side of her chest. Chest pain is worsened with movement of left arm. Patient denies any fever, chills, shortness of breath, nausea, vomiting, diarrhea, urinary symptoms, back pain, neck pain, headache, dizziness, or any other complaints. PMD: Dr. Ridge Carrillo Time/Duration: 24 hours Symptom Onset: Gradual Symptom Course: Unchanged Quality: Other (Squeezing) Activities at Onset: Sleeping Context: Home Past Medical History - Provider Review Nursing Documentation Reviewed: Yes - Infectious Disease Hx of Infectious Diseases: None - Cardiac Hx Cardiac Disorders: Yes Hx Hypertension: Yes - Pulmonary Hx Respiratory Disorders: No - Neurological Hx Neurological Disorder: No - HEENT Hx HEENT Disorder: No - Renal Hx Renal Disorder: Yes - Endocrine/Metabolic Hx Endocrine Disorders: Yes Hx Diabetes Mellitus Type 2: Yes Hx Hypothyroidism: Yes - Hematological/Oncological Hx Blood Disorders: No - Integumentary Hx Dermatological Disorder: No - Musculoskeletal/Rheumatological Hx Musculoskeletal Disorders: Yes Hx Falls: Yes - Gastrointestinal Hx Gastrointestinal Disorders: Yes (obese) - Genitourinary/Gynecological Hx Genitourinary Disorders: Yes - Psychiatric Hx Psychophysiologic Disorder: Yes Hx Depression: Yes Hx Substance Use: No - Surgical History Hx Cardiac Catheterization: Yes Hx Cholecystectomy: Yes Hx Coronary Stent: Yes (x2) - Anesthesia Hx Anesthesia: Yes Hx Anesthesia Reactions: No Hx Malignant Hyperthermia: No - Suicidal Assessment Feels Threatened In Home Enviroment: No Family/Social History - Physician Review Nursing Documentation Reviewed: Yes Family/Social History: No Known Family HX Smoking Status: Never Smoked Hx Alcohol Use: No Hx Substance Use: No Allergies/Home Meds Allergies/Adverse Reactions: Allergies Penicillins Allergy (Verified 11/25/17 22:29) RASH Home Medications: Home Meds Medication Instructions Recorded Confirmed RX: Clopidogrel [Plavix] 75 mg PO QAM 04/15/17 04/07/18 RX: Furosemide [Lasix] 20 mg PO BID 04/15/17 04/07/18 RX: Levothyroxine Sodium [Levoxyl] 50 mcg PO DAILY 04/15/17 04/07/18 RX: Losartan [Cozaar] 100 mg PO DAILY 04/15/17 04/07/18 RX: amLODIPine [Norvasc] 10 mg PO HS 04/15/17 04/07/18 RX: Aspirin [Ecotrin] 81 mg PO DAILY 04/07/18 04/07/18 RX: Isosorbide Mononitrate ER 30 mg PO DAILY 04/07/18 04/07/18 [Imdur ER] RX: MetFORMIN [glucoPHAGE] 1,000 mg PO DAILY 04/07/18 04/07/18 Rosuvastatin Calcium [Crestor] 20 mg PO DAILY 04/07/18 04/07/18 Review of Systems - Physician Review All systems were reviewed & negative as marked: Yes - Review of Systems Constitutional: absent: Fevers Eyes: absent: Vision Changes Respiratory: absent: SOB, Cough Cardiovascular: Chest Pain Gastrointestinal: absent: Abdominal Pain, Diarrhea, Nausea, Vomiting Genitourinary Female: absent: Dysuria Musculoskeletal: absent: Back Pain, Neck Pain Neurological: absent: Headache, Dizziness Physical Exam - Physical Exam Narrative Physical Exam (Text): 04/07/18 11:44 Gen: VS reviewed, alert, well developed, well nourished, nontoxic, mild d istress. ENT: normal pharynx. Eye: EOMI, PERRL. Neck: no JVD, supple, no adenopathy. CV: regular rate, regular rhythm, no rubs, no murmur, no gallops, S1, S2, pulses equal and strong. Pulm/Chest: no distress, clear to auscultation, no wheeze, no rhonchi, breath sounds equal, no rales. Reproducible tenderness to palpation to left side of chest wall. Abd: soft, nontender, no guarding, no rebound, no rigidity, normal bowel sounds. Ext: no edema. Skin: good color, no rash, no cyanosis. Psych: responds appropriately to questions, normal affect. Neuro: oriented x 3, CN2-12 intact grossly, motor intact, sensation intact. Vital Signs Reviewed: Yes Vital Signs Temp Pulse Resp BP Pulse Ox 04/07/18 11:38 97.9 F 89 18 131/89 100 Temperature: Afebrile Blood Pressure: Normal Pulse: Regular Respiratory Rate: Normal Appearance: Positive for: Well-Appearing, Non-Toxic, Comfortable Pain Distress: None Mental Status: Positive for: Alert and Oriented X 3 Finger Stick Blood Glucose: 444 Medical Decision Making ED Course and Treatment: 04/07/18 11:44 Impression: 67 year olf female presents to Emergency department with complaints of chest pain. Plan: - EKG - Labs - Chest X-ray - Insulin - NTG - IV - Tylenol - Urinalysis -- Reassess and disposition Prior Visits: Notes and results from previous visits were reviewed. Progress Notes: 04/07/18 12:38 blood pressure dropped significantly after two doses of NTG, did not relieve, mentation intact without dizziness at bedside eval, IVF going and blood pressure improving. will continue to monitor. 04/07/18 12:46 04/07/18 15:[address] pearson to the hospitalist service. patient to be admitted for angina, rule out ACS, no sig clinical suspicion for aortic dissection. heart score = 6 - RAD Interpretation Narrative RAD Interpretations (Text): 04/07/18 12:53 cxr my read: no focal infiltrate, no ptx, no wide mediastinum 04/07/18 15:00 Chest X-Ray as reviewed by radiologist: Questionable small nodule at right lung base, new since prior. Either frontal apical lordotic chest radiograph or computed tomography is advised. Radiology Orders: 04/07/18 11:45 CHEST PORTABLE [RAD] Stat Ip Litigation Paralegal: ED Physician - EKG Interpretation EKG Interpretation (Text): 04/07/18 11:31 EKG reviewed shows: NSR at 90 BPM Nml axis, Nml QRS, Nonspecific ST / T wave changes 04/07/18 12:39 1223: ekg # 2: nsr at 93 bpm, nml qrs, nml axis, no acute sttw abn, unchanged - Medication Orders Current Medication Orders: Sodium Chloride (Sodium Chloride 0.9%) 1,000 mls @ 999 mls/hr IV .Q1H1M STA Stop: 04/07/18 12:47 Discontinued Medications Acetaminophen (Tylenol 325mg Tab) 975 mg PO STAT STA Stop: 04/07/18 11:46 Last Admin: 04/07/18 12:04 Dose: 975 mg MAR Pain/Vitals Document 04/07/18 12:04 BB (Rec: 04/07/18 12:04 BB [id number]) Pain Reassessment Is This A Pain ReAssessment? No Sleep Is patient sleeping during reassessment? No Presence of Pain Presence of Pain Yes Pain Scale Used Protocol: PSCALES Pain Scale Used Numeric Location Left, Right or Bilateral Left Pain Location Body Site Chest Description Intermittent Intensity 6 Scale Used Numeric Insulin Human Regular (Humulin R) 10 units IVP STAT STA Stop: 04/07/18 11:48 Last Admin: 04/07/18 12:03 Dose: 10 units MAR Blood Glucose Document 04/07/18 12:03 BB (Rec: 04/07/18 12:03 BB [id number]) Blood Glucose Finger Stick Blood Glucose (70-120) 444 IVP Administration Document 04/07/18 12:03 BB (Rec: 04/07/18 12:03 BB [id number]) Charges for Administration # of IVP Administrations 1 Nitroglycerin (Nitrostat Sl Tab) 0.4 mg SL Q5M [facility] Stop: 04/07/18 11:56 Last Admin: 04/07/18 12:03 Dose: 0.4 mg - [place] Statement The provider has reviewed the documentation as recorded by the Mavis valadez with Melissa All medical record entries made by the Mavis were at my direction and personally dictated by me. I have reviewed the chart and agree that the record accurately reflects my personal performance of the history, physical exam, medical decision making, and the department course for this patient. I have also personally directed, reviewed, and agree with the discharge instructions and disposition. Disposition/Present on Arrival - Present on Arrival Any Indicators Present on Arrival: No History of DVT/PE: No History of Uncontrolled Diabetes: No Urinary Catheter: No History Surgical Site Infection Following: None - Disposition Have Diagnosis and Disposition been Completed?: Yes Diagnosis: Angina at rest Disposition: HOSPITALIZED Disposition Time: 15:21 Patient Plan: Admission, Observation Patient Problems: Current Active Problems Problem Status Onset Coronary artery disease involving igiugig coronary artery Acute Condition: STABLE
[2018-04-07 12:21] LABS: BASO # 0.03 K/mm3 (0.0-2.0); BASO % 0.5 % (0.0-3.0); EOS # 0.1 (0.0-0.7); EOS % 0.8 % (1.5-5.0); HEMOGLOBIN 13.1 g/dL (12.0-16.0); LYMPH # 1.4 (1.2-3.4); LYMPH % 21.8 % (22.0-35.0); MEAN CORPUSCULAR HEMOGLOBIN 30.5 pg (25.0-35.0); MEAN CORPUSCULAR HGB CONC 33.9 g/dl (31.0-37.0); MEAN PLATELET VOLUME 9.6 fl (7.0-11.0); MONO # 0.3 (0.1-0.6); MONO % 4.6 % (1.0-6.0); RBC 4.29 10^6/uL (3.5-6.1); RED CELL DISTRIBUTION WIDTH 15.2 % (11.5-14.5); WHITE BLOOD COUNT 6.6 10^3/uL (4.5-11.0)
[2018-04-07 12:30] LABS: INR 1.03; PARTIAL THROMBOPLASTIN TIME 41.4 Seconds (26.9-38.3); PROTHROMBIN TIME 11.6 SECONDS (9.4-12.5)
[2018-04-07 12:36] LABS: TROPONIN I 0.01 ng/mL
[2018-04-07 12:40] LABS: ALB/GLOB RATIO 1.4 (1.1-1.8); ALBUMIN 4.1 g/dL (3.0-4.8); CALCIUM 9.6 mg/dL (8.4-10.5)
[2018-04-07] MEDS ORDERED: Iohexol 350 MG/100 ML VIAL ONE (13:46)
--- NOTE | 2018-04-07 13:53 | RAD ---
Date of service: 04/07/2018 HISTORY: chest pain COMPARISON: 11/25/2017 FINDINGS: LUNGS: Questionable small nodule at right lung base not seen on prior examinations. Consider either additional apical lordotic frontal chest radiograph or computed tomography of the chest. No other pulmonary mass. No infiltrate. PLEURA: No significant pleural effusion identified, no pneumothorax apparent. CARDIOVASCULAR: No aortic atherosclerotic calcification present. Normal cardiac size. No pulmonary vascular congestion. OSSEOUS STRUCTURES: No significant abnormalities. VISUALIZED UPPER ABDOMEN: Normal. OTHER FINDINGS: None. IMPRESSION: Questionable small nodule at right lung base, new since prior. Either frontal apical lordotic chest radiograph or computed tomography is advised.
--- NOTE | 2018-04-07 15:00 | CT ---
Date of service: 04/07/2018 PROCEDURE: CT Chest with contrast (Pulmonary Angiogram) HISTORY: pulmonary embolism COMPARISON: 04/15/2017 TECHNIQUE: Axial computed tomography images were obtained of the chest in the pulmonary arterial phase of enhancement. Coronal and sagittal reformatted images were created and reviewed. Intravenous contrast dose: 100 mL Omnipaque 350 Radiation dose: Total exam DLP = 456.81 mGy-cm. This CT exam was performed using one or more of the following dose reduction techniques: Automated exposure control, adjustment of the mA and/or kV according to patient size, and/or use of iterative reconstruction technique. FINDINGS: PULMONARY ARTERIES: Unremarkable. No pulmonary embolism. AORTA: No acute findings. No thoracic aortic aneurysm. There is atherosclerotic calcification of the thoracic aorta. LUNGS: Unremarkable. No nodule, mass or pulmonary consolidation. PLEURAL SPACES: Unremarkable. No effusion or pneumothorax. HEART: Unremarkable. No cardiomegaly. No significant pericardial effusion. LYMPH NODES: No lymphadenopathy. BONES, CHEST WALL: Unremarkable. No fracture or destructive lesion OTHER FINDINGS: Unremarkable. IMPRESSION: Unremarkable CT pulmonary angiogram. No pulmonary embolus.
[2018-04-07] MEDS ORDERED: Albuterol-Ipratrop 3 mg / 0.5 (3 ml) UD IH PRN (16:10)
[2018-04-07] MEDS ORDERED: Insulin Reg-MEDIUM-Coverage SC SCH (16:30)
--- NOTE | 2018-04-07 18:45 | CP.PCM.HP ---
<DesiraeJimmie - Last Filed: 04/07/18 18:15> History of Present Illness - History of Present Illness History of Present Illness: Medicine H/P: Desirae, PGY - 2 Chief Complaint: Chest pain HPI: 67 Danish speaking F with pertinent medical hx of CAD s/p stent placement in 04/2017, IDDM 2, and HTN presents with recent onset, constant, left sided, non-radiating, chest pain of squeezing quality with associated symptoms of SOB that was alleviated with nitrates. Patient denies a recent fall. Patient admits to nausea without vomiting, dizziness, and chronic hematuria, but denies diarrhea. Patient states that she follows with a machine shop repair technician (name unknown) and that her last cath was last April. Chart review reveals an ECHO in 11/2017 showing EF of 62%; last stress test is unknown. Review of Systems: 12 point ROS obtained and negative except as per HPI Surgical Hx: Stent placement, Cholecystectomy Medical Hx: CAD s/p stent in 04/2017 at [facility]; IDDM 2, HTN, Hypothyroidism, Depression Allergies: PCN's - rash Social Hx: Non smoker, Non drinker, No illicits; per chart review, Home Meds: AM: HCTZ 12.5, Cozaar 100, Plavix 75, Levothyroine 50, Isosor bide 30, ASA 81, Effexor 75; Afternoon: Metformin 1000; PM: Norvasc 10, Lasix 20, Crestor 20 Family Hx: Elicited, but patient does not recall Present on Admission - Present on Admission Any Indicators Present on Admission: No Past Patient History - Infectious Disease Hx of Infectious Diseases: None - Past Social History Smoking Status: Never Smoked - CARDIAC Hx Cardiac Disorders: Yes Hx Hypertension: Yes - PULMONARY Hx Respiratory Disorders: No - NEUROLOGICAL Hx Neurological Disorder: No - HEENT Hx HEENT Problems: No - RENAL Hx Chronic Kidney Disease: Yes - ENDOCRINE/METABOLIC Hx Endocrine Disorders: Yes Hx Diabetes Mellitus Type 2: Yes Hx Hypothyroidism: Yes - HEMATOLOGICAL/ONCOLOGICAL Hx Blood Disorders: No - INTEGUMENTARY Hx Dermatological Problems: No - MUSCULOSKELETAL/RHEUMATOLOGICAL Hx Musculoskeletal Disorders: Yes Hx Falls: Yes - GASTROINTESTINAL Hx Gastrointestinal Disorders: Yes (obese) - GENITOURINARY/GYNECOLOGICAL Hx Genitourinary Disorders: Yes - PSYCHIATRIC Hx Psychophysiologic Disorder: Yes Hx Depression: Yes Hx Substance Use: No - SURGICAL HISTORY Hx Cardiac Catheterization: Yes Hx Cholecystectomy: Yes Hx Coronary Stent: Yes (x2) - ANESTHESIA Hx Anesthesia: Yes Hx Anesthesia Reactions: No Hx Malignant Hyperthermia: No Meds Allergies/Adverse Reactions: Allergies Allergy/AdvReac Type Severity Reaction Status Date / Time Penicillins Allergy RASH Verified 11/25/17 22:29 Physical Exam - Constitutional Appears: Well - Head Exam Head Exam: ATRAUMATIC, NORMAL INSPECTION, NORMOCEPHALIC - Eye Exam Eye Exam: EOMI, Normal appearance, PERRL Pupil Exam: NORMAL ACCOMODATION, PERRL - ENT Exam ENT Exam: Mucous Membranes Moist, Normal Exam - Neck Exam Neck exam: Positive for: Normal Inspection - Respiratory Exam Respiratory Exam: Clear to Auscultation Bilateral, NORMAL BREATHING PATTERN - Cardiovascular Exam Cardiovascular Exam: REGULAR RHYTHM, RRR, +S1, +S2 Additional comments: Patient has reproducible ttp in left side of her chest - GI/Abdominal Exam GI & Abdominal Exam: Normal Bowel Sounds, Soft. absent: Tenderness - Extremities Exam Extremities exam: Positive for: normal inspection - Back Exam Back exam: NORMAL INSPECTION - Neurological Exam Neurological exam: Alert, CN II-XII Intact, Normal Gait, Oriented x3, Reflexes Normal - Psychiatric Exam Psychiatric exam: Normal Affect, Normal Mood - Skin Skin Exam: Dry, Intact, Normal Color, Warm Results - Vital Signs Recent Vital Signs: Last Vital Signs Temp 97.9 F 04/07/18 11:38 Pulse 75 04/07/18 15:16 Resp 18 04/07/18 15:16 BP 116/58 L 04/07/18 15:16 Pulse Ox 97 04/07/18 15:16 - Labs Result Diagrams: 04/07/18 11:59 04/07/18 11:59 Labs: Laboratory Results - last 24 hr 04/07/18 04/07/18 04/07/18 11:59 11:59 11:59 WBC 6.6 RBC 4.29 Hgb 13.1 Hct 38.6 MCV 90.0 MCH 30.5 MCHC 33.9 RDW 15.2 H Plt Count 258 MPV 9.6 Neut % (Auto) 72.3 H Lymph % (Auto) 21.8 L Dubois % (Auto) 4.6 Eos % (Auto) 0.8 L Baso % (Auto) 0.5 Lymph # (Auto) 1.4 Dubois # (Auto) 0.3 Eos # (Auto) 0.1 Baso # (Auto) 0.03 Absolute Neuts (auto) 4.75 PT INR APTT Sodium 135 Potassium 3.9 Chloride 95 L Carbon Dioxide 29 Anion Gap 14 BUN 29 H Creatinine 1.4 H Est GFR ( Amer) 45 Est GFR (Non-Af Amer) 37 Random Glucose 438 H* D Calcium 9.6 Total Bilirubin 1.2 AST 23 ALT 31 Alkaline Phosphatase 107 Troponin I 0.01 Total Protein 7.0 Albumin 4.1 Globulin 3.0 Albumin/Globulin Ratio 1.4 TSH 3rd Generation 1.42 04/07/18 04/07/18 11:59 17:10 WBC RBC Hgb Hct MCV MCH MCHC RDW Plt Count MPV Neut % (Auto) Lymph % (Auto) Dubois % (Auto) Eos % (Auto) Baso % (Auto) Lymph # (Auto) Dubois # (Auto) Eos # (Auto) Baso # (Auto) Absolute Neuts (auto) PT 11.6 INR 1.03 APTT 41.4 H Sodium Potassium Chloride Carbon Dioxide Anion Gap BUN Creatinine Est GFR ( Amer) Est GFR (Non-Af Amer) Random Glucose Calcium Total Bilirubin AST ALT Alkaline Phosphatase Troponin I < 0.01 Total Protein Albumin Globulin Albumin/Globulin Ratio TSH 3rd Generation Assessment & Plan - Assessment and Plan (Free Text) Assessment: 67 F with pertinent medical history of IDDM 2, HTN, and CAD s/p stent placement presents for chest pain which was found to be reproducible. Plan Patient's initial troponin levels have been <.01 and her EKG in the ED was regular sinus rhythm and rate, without st/t changes or prolonged intervals. Patient also had reproducible chest pain on exam with normal oxygen saturations. Without a recent lipid panel, ASCVD score cannot be calculated, but ROSA score is 4, indicating 20% risk of cardiac event in 14 days. Chest Pain r/o ACS, likely 2/2 Musculoskeletal Pain - Tropes X 3, Trope in AM; EKG in AM; A1C, TSH, and Lipid Panel - Cardiology Consult: Dr. Giles CAD s/p Stents - Continue home Aspirin, Plavix, Lipitor - Cardiology Consult: Dr. Giles IDDM 2 - RISS Medium with ACHS FS - Track sugars during the day tomorrow; patient takes 30 units at home, will monitor if she needs here HTN - Continue home Norvasc 10 HS, Lasix 20 HS, HCTZ 12.5 AM, Cozaar 100 AM Hypothyroidism - Continue Levothyroxine 50 Depression - Continue Effexor 75 <Lynda Chaves R - Last Filed: 04/08/18 09:01> Results - Vital Signs Recent Vital Signs: Last Vital Signs Temp 98 F 04/07/18 16:10 Pulse 99 H 04/08/18 06:00 Resp 20 04/07/18 19:58 BP 111/50 L 04/07/18 21:26 Pulse Ox 99 04/07/18 16:10 - Labs Result Diagrams: 04/08/18 07:00 04/08/18 07:00 Labs: Laboratory Results - last 24 hr 04/07/18 04/07/18 04/07/18 11:59 11:59 11:59 WBC 6.6 RBC 4.29 Hgb 13.1 Hct 38.6 MCV 90.0 MCH 30.5 MCHC 33.9 RDW 15.2 H Plt Count 258 MPV 9.6 Neut % (Auto) 72.3 H Lymph % (Auto) 21.8 L Dubois % (Auto) 4.6 Eos % (Auto) 0.8 L Baso % (Auto) 0.5 Lymph # (Auto) 1.4 Dubois # (Auto) 0.3 Eos # (Auto) 0.1 Baso # (Auto) 0.03 Absolute Neuts (auto) 4.75 PT INR APTT Sodium 135 Potassium 3.9 Chloride 95 L Carbon Dioxide 29 Anion Gap 14 BUN 29 H Creatinine 1.4 H Est GFR ( Amer) 45 Est GFR (Non-Af Amer) 37 Random Glucose 438 H* D Calcium 9.6 Phosphorus Magnesium Total Bilirubin 1.2 AST 23 ALT 31 Alkaline Phosphatase 107 Troponin I 0.01 Total Protein 7.0 Albumin 4.1 Globulin 3.0 Albumin/Globulin Ratio 1.4 Triglycerides Cholesterol LDL Cholesterol Direct HDL Cholesterol TSH 3rd Generation 1.42 Urine Color Urine Appearance Urine pH Ur Specific [place] Urine Protein Urine Glucose (UA) Urine Ketones Urine Blood Urine Nitrate Urine Bilirubin Urine Urobilinogen Ur Leukocyte Esterase Urine RBC Urine WBC Ur Epithelial Cells Urine Bacteria 04/07/18 04/07/18 04/07/18 11:59 17:10 22:52 WBC RBC Hgb Hct MCV MCH MCHC RDW Plt Count MPV Neut % (Auto) Lymph % (Auto) Dubois % (Auto) Eos % (Auto) Baso % (Auto) Lymph # (Auto) Dubois # (Auto) Eos # (Auto) Baso # (Auto) Absolute Neuts (auto) PT 11.6 INR 1.03 APTT 41.4 H Sodium Potassium Chloride Carbon Dioxide Anion Gap BUN Creatinine Est GFR ( Amer) Est GFR (Non-Af Amer) Random Glucose Calcium Phosphorus Magnesium Total Bilirubin AST ALT Alkaline Phosphatase Troponin I < 0.01 0.02 D Total Protein Albumin Globulin Albumin/Globulin Ratio Triglycerides Cholesterol LDL Cholesterol Direct HDL Cholesterol TSH 3rd Generation Urine Color Urine Appearance Urine pH Ur Specific [place] Urine Protein Urine Glucose (UA) Urine Ketones Urine Blood Urine Nitrate Urine Bilirubin Urine Urobilinogen Ur Leukocyte Esterase Urine RBC Urine WBC Ur Epithelial Cells Urine Bacteria 04/08/18 04/08/18 04/08/18 05:55 07:00 07:00 WBC 6.6 RBC 4.28 Hgb 13.0 Hct 38.9 MCV 90.9 MCH 30.4 MCHC 33.4 RDW 15.4 H Plt Count 235 MPV 9.5 Neut % (Auto) 63.0 Lymph % (Auto) 29.7 Dubois % (Auto) 4.7 Eos % (Auto) 2.0 Baso % (Auto) 0.6 Lymph # (Auto) 2.0 Dubois # (Auto) 0.3 Eos # (Auto) 0.1 Baso # (Auto) 0.04 Absolute Neuts (auto) 4.17 PT INR APTT Sodium 139 Potassium 3.7 Chloride 98 Carbon Dioxide 32 Anion Gap 12 BUN 28 H Creatinine 1.4 H Est GFR ( Amer) 45 Est GFR (Non-Af Amer) 37 Random Glucose 268 H Calcium 9.4 Phosphorus 3.6 Magnesium 2.1 Total Bilirubin 1.0 AST 16 ALT 29 Alkaline Phosphatase 102 Troponin I Total Protein 7.1 Albumin 4.1 Globulin 3.1 Albumin/Globulin Ratio 1.3 Triglycerides 298 H Cholesterol 141 LDL Cholesterol Direct 67 HDL Cholesterol 26 L TSH 3rd Generation Urine Color Yellow Urine Appearance Cloudy Urine pH 6.5 Ur Specific [place] 1.020 Urine Protein 30 H Urine Glucose (UA) Negative Urine Ketones Negative Urine Blood Moderate H Urine Nitrate Positive H Urine Bilirubin Negative Urine Urobilinogen 1.0 H Ur Leukocyte Esterase Small H Urine RBC 0 - 2 Urine WBC 15 - 20 H Ur Epithelial Cells 0 - 2 Urine Bacteria Many 04/08/18 04/08/18 07:00 07:00 WBC RBC Hgb Hct MCV MCH MCHC RDW Plt Count MPV Neut % (Auto) Lymph % (Auto) Dubois % (Auto) Eos % (Auto) Baso % (Auto) Lymph # (Auto) Dubois # (Auto) Eos # (Auto) Baso # (Auto) Absolute Neuts (auto) PT INR APTT Sodium Potassium Chloride Carbon Dioxide Anion Gap BUN Creatinine Est GFR ( Amer) Est GFR (Non-Af Amer) Random Glucose Calcium Phosphorus Magnesium Total Bilirubin AST ALT Alkaline Phosphatase Troponin I 0.01 D Total Protein Albumin Globulin Albumin/Globulin Ratio Triglycerides Cholesterol LDL Cholesterol Direct HDL Cholesterol TSH 3rd Generation 1.50 Urine Color Urine Appearance Urine pH Ur Specific [place] Urine Protein Urine Glucose (UA) Urine Ketones Urine Blood Urine Nitrate Urine Bilirubin Urine Urobilinogen Ur Leukocyte Esterase Urine RBC Urine WBC Ur Epithelial Cells Urine Bacteria Attending/Attestation - Attestation I have personally seen and examined this patient.: Yes I have fully participated in the care of the patient.: Yes I have reviewed all pertinent clinical information: Yes Notes (Text): Patient seen and examined by me with resident at 3:55PM in 04/07/18. Case including HPI, physical exam, and assessment and plan discussed with resident. Agree with above with following additions/corrections. Patient is a 67-year-old female with past medical history significant for coronary artery disease status post stent placement, insulin-dependent type 2 diabetes, hypertension, hypothyroidism, and depression that presented to the emergency room with chest pain. [place] security system technician #[id number] used for translation. Patient states that she always has chest pain, however since around midnight l ast night, the pain has worsened. She states that the pain is in the left side of her chest and feels like a "squeezing". There is no radiation of the pain into her neck or arms. Pain is constant. Patient states she did not take anything other than her normal medications for the pain. Patient states that she is having a hard time taking in a deep breath because of the pain. No associated diaphoresis. Patient states that over the past 2-3 days, she has also been feeling a little dizzy with ambulating. Patient also complains of chronic nausea. No vomiting or abdominal pain. Patient also complains of chronic hematuria for which she has been seeing her doctor as an outpatient for the past 7 months. Patient states she lives alone and does not use any assistive devices to ambulate. Patient denies headaches or lightheadedness. No fevers or chills. No dysuria. No neck or back pain. Patient does not bleed or bruise easily. 12 point review of systems reviewed by me. See above HPI. All other systems negative. Family history: Mother and father , patient does not recall their medical history. Physical exam: General: Awake and alert sitting up in bed in no acute distress HEENT: Normocephalic, atraumatic. Extraocular muscles intact, pupils equal and reactive, no scleral icterus. Oropharynx is pink and moist. No pharyngeal erythema or exudate apreciated. Neck is supple. Hearing grossly intact. Nose externally unremarkable. Cardiovascular: Regular rhythm. Normal S1 and S2. No murmurs, rubs, or gallops appreciated Pulmonary: Normal respiratory effort. No rhonchi, rales, or wheezing appreciated. Gastrointestinal: Soft, nondistended. Nontender. Positive bowel sounds all 4 quadrants. No guarding. Musculoskeletal: Moves all extremities. No calf tenderness. Trace bilateral low er extremity pitting edema. Positive left-sided anterior chest wall tenderness with palpation. Central nervous system: AAOx3, CN 2-12 grossly intact. 5/ 5 muscle strength all extremities. Dermatologic: Skin warm and dry. Assessment and plan: Patient is a 67-year-old female with past medical history significant for coronary artery disease status post stent placement, insulin- dependent type 2 diabetes, hypertension, hypothyroidism, and depression that presented to the emergency room with chest pain. 1. Chest pain in a patient with history of CAD. Pain is reproducible. Rule out ACS. Cardiology consulted, follow-up recommendations. Continue aspirin, Lipitor, Plavix, Imdur, and Cozaar. Follow up serial troponin. Follow-up TSH. Follow-up hemoglobin A1c. Follow-up lipid panel. Monitor on telemetry. 2. PAGE. Likely secondary to diuretic Lasix, HCTZ, and mild dehydration. Hold off on IV fluids for now as patient is on Lasix. Follow up repeat labs in a.m. 3. Insulin-dependent type 2 diabetes with hyperglycemia. Placed on insulin sliding scale. Monitor Accu-Cheks. Follow-up hemoglobin A1c. 4. Hypertension. Continue home Lasix, hydrochlorothiazide, Cozaar, Norvasc, and Imdur 5. Hypothyroidism. Continue Synthroid. Follow up TSH 6. Depression. Continue home Effexor. 7. Chronic hematuria. Patient to continue to follow with her PMD as and outpatient. H&H within normal limits here. 8. GI/DVT prophylaxis. Protonix/Lovenox 9. Patient is a full code. Case was discussed in detail with the patient regarding current diagnosis and treatment plan. All questions answered.
[2018-04-07] MEDS: Insulin Reg-HIGH-Coverage SC SCH (22:32)
[2018-04-08] MEDS: Pantoprazole 40 mg EC Tab PO SCH (06:20)
[2018-04-08 06:22] LABS: PH,URINE 6.5 (4.7-8.0); URINE BILIRUBIN NEGATIVE (NEGATIVE); URINE BLOOD MODERATE (NEGATIVE); URINE GLUCOSE (UA) NEGATIVE (NEGATIVE); URINE LEUKOCYTE ESTERASE SMALL Leu/uL (NEGATIVE); URINE PROTEIN 30 mg/dL (<30 mg/dL)
[2018-04-08 06:23] LABS: URINE APPEARANCE CLOUDY (CLEAR); URINE COLOR YELLOW (YELLOW)
[2018-04-08 06:36] LABS: URINE BACTERIA MANY /hpf; URINE EPITHELIAL CELLS 0 - 2 /hpf (0-5); URINE RBC 0 - 2 /hpf (0-2); URINE WBC 15 - 20 /hpf (0-6)
[2018-04-08 07:18] LABS: BASO # 0.04 K/mm3 (0.0-2.0); BASO % 0.6 % (0.0-3.0); EOS # 0.1 (0.0-0.7); LYMPH % 29.7 % (22.0-35.0); MEAN CELL VOLUME 90.9 fl (80.0-105.0); MEAN CORPUSCULAR HEMOGLOBIN 30.4 pg (25.0-35.0); MEAN CORPUSCULAR HGB CONC 33.4 g/dl (31.0-37.0); MEAN PLATELET VOLUME 9.5 fl (7.0-11.0); MONO # 0.3 (0.1-0.6); MONO % 4.7 % (1.0-6.0); RBC 4.28 10^6/uL (3.5-6.1); RED CELL DISTRIBUTION WIDTH 15.4 % (11.5-14.5); WHITE BLOOD COUNT 6.6 10^3/uL (4.5-11.0)
[2018-04-08 08:05] LABS: ALB/GLOB RATIO 1.3 (1.1-1.8); ALBUMIN 4.1 g/dL (3.0-4.8); CALCIUM 9.4 mg/dL (8.4-10.5)
[2018-04-08] MEDS: Levothyroxine 50 MCG TAB PO SCH (08:34)
[2018-04-08] MEDS: Insulin Reg-HIGH-Coverage SC SCH ×4 (08:34→22:30)
[2018-04-08] MEDS: Venlafaxine 75 mg ER Cap PO SCH (09:52)
[2018-04-08] MEDS ORDERED: Enoxaparin 40 mg Syringe SC SCH (10:00)
--- NOTE | 2018-04-08 12:13 | CARD ---
APPROVED REPORT Date of service: 04/08/2018 EKG Measurement Heart [id number] <Conclusion> Normal sinus rhythm Normal ECG
--- NOTE | 2018-04-08 12:34 | CP.PCM.PN ---
<Yaw Sadler - Last Filed: 04/08/18 12:44> Subjective - Date & Time of Evaluation Date of Evaluation: 04/08/18 Time of Evaluation: 12:31 - Subjective Subjective: INTERNAL MEDICINE PROGRESS NOTE FOR DR. ANASTACIO Sadler PGY1 Pt seen and examined at bedside this am. No acute events overnight. Pt is denying any urinary symptoms. She has no other complaints this am. Objective - Vital Signs/Intake and Output Vital Signs (last 24 hours): Temp Pulse Resp BP Pulse Ox 98 F 99 H 20 111/50 L 99 04/07/18 16:10 04/08/18 06:00 04/07/18 19:58 04/07/18 21:26 04/07/18 16:10 Intake and Output: 04/08/18 04/08/18 06:59 18:59 Intake Total 240 Output Total 100 Balance 140 - Medications Medications: Current Medications Albuterol/Ipratropium (Duoneb 3 Mg/0.5 Mg (3 Ml) Ud) 3 ml IH Q2H PRN PRN Reason: Shortness of Breath Amlodipine Besylate (Norvasc) 10 mg PO HS [facility] Last Admin: 04/07/18 21:26 Dose: 10 mg Aspirin (Ecotrin) 81 mg PO DAILY [facility] Last Admin: 04/08/18 09:52 Dose: 81 mg Atorvastatin Calcium (Lipitor) 80 mg PO DIN [facility] Last Admin: 04/07/18 16:43 Dose: 80 mg Clopidogrel Bisulfate (Plavix) 75 mg PO QAM [facility] Last Admin: 04/08/18 09:52 Dose: 75 mg Enoxaparin Sodium (Lovenox) 40 mg SC DAILY [facility]; Protocol Last Admin: 04/08/18 09:52 Dose: 40 mg Furosemide (Lasix) 20 mg PO HS [facility] Last Admin: 04/07/18 21:26 Dose: 20 mg Hydrochlorothiazide (Microzide) 12.5 mg PO DAILY [facility] Last Admin: 04/08/18 09:53 Dose: 12.5 mg Insulin Human Regular (Humulin R High) 0 units SC [facility]; Protocol Last Admin: 04/08/18 11:55 Dose: 10 units Isosorbide Mononitrate (Imdur Er) 30 mg PO DAILY [facility] Last Admin: 04/08/18 09:53 Dose: 30 mg Levothyroxine Sodium (Synthroid) 50 mcg PO ACB [facility] Last Admin: 04/08/18 08:34 Dose: 50 mcg Losartan Potassium (Cozaar) 100 mg PO DAILY [facility] Last Admin: 04/08/18 09:53 Dose: 100 mg Pantoprazole Sodium (Protonix Ec Tab) 40 mg PO 0600 [facility] Last Admin: 04/08/18 06:20 Dose: 40 mg Venlafaxine HCl (Effexor Xr) 75 mg PO DAILY [facility] Last Admin: 04/08/18 09:52 Dose: 75 mg - Labs Labs: 04/08/18 07:00 04/08/18 07:00 PT 11.6 SECONDS (9.4-12.5) 04/07/18 11:59 INR 1.03 04/07/18 11:59 APTT 41.4 Seconds (26.9-38.3) H 04/07/18 11:59 - Constitutional Appears: Well, Non-toxic, No Acute Distress - Head Exam Head Exam: NORMAL INSPECTION, NORMOCEPHALIC - Eye Exam Eye Exam: EOMI, Normal appearance - Neck Exam Neck Exam: Normal Inspection - Respiratory Exam Respiratory Exam: Clear to Ausculation Bilateral, NORMAL BREATHING PATTERN - Cardiovascular Exam Cardiovascular Exam: REGULAR RHYTHM, +S1, +S2 Additional comments: L sided chest wall tenderness to palpation - GI/Abdominal Exam GI & Abdominal Exam: Soft. absent: Tenderness - Extremities Exam Extremities Exam: Normal Inspection. absent: Calf Tenderness - Back Exam Back Exam: NORMAL INSPECTION - Neurological Exam Neurological Exam: Alert, Awake, Oriented x3 - Psychiatric Exam Psychiatric exam: Normal Affect, Normal Mood - Skin Skin Exam: Dry, Intact, Warm Assessment and Plan - Assessment and Plan (Free Text) Assessment: 67 y/o F with PMHx of CAD s/p stent, IDDM2, HTN, Hypothyroidism, depression presented to ED with complaints of reproducible chest pain Plan: Chest Pain Troponins (-) x 3. Continue aspirin, plavix, imdur PAGE likely 2/2 lasix hold off fluids IDDM2 A1C 8.9 ISS HTN continue amlodipine, cozaar, HCTZ, lasix Hypothyroidism tsh wnl continue synthroid Depression continue venlafaxine Chronic hematuria H7H wnl. No acute intervention f/u outpatient GI/DVT Ppx: PTX/LVX Dispo: PT eval today Case seen, examined and discussed with attending physician, Dr. Anastacio Sadler PGY1 <Lynda Chaves R - Last Filed: 04/09/18 18:54> Objective - Vital Signs/Intake and Output Vital Signs (last 24 hours): Temp Pulse Resp BP Pulse Ox 97.8 F 97 H 18 127/66 98 04/09/18 16:34 04/09/18 16:34 04/09/18 16:34 04/09/18 16:34 04/09/18 16:20 Intake and Output: 04/09/18 04/09/18 06:59 18:59 Intake Total 1320 1300 Output Total 1250 500 Balance 70 800 - Medications Medications: Current Medications Albuterol/Ipratropium (Duoneb 3 Mg/0.5 Mg (3 Ml) Ud) 3 ml IH Q2H PRN PRN Reason: Shortness of Breath Amlodipine Besylate (Norvasc) 10 mg PO HS [facility] Last Admin: 04/08/18 21:11 Dose: 10 mg Aspirin (Ecotrin) 81 mg PO DAILY [facility] Last Admin: 04/09/18 12:04 Dose: Not Given Atorvastatin Calcium (Lipitor) 80 mg PO DIN [facility] Last Admin: 04/09/18 16:55 Dose: 80 mg Clopidogrel Bisulfate (Plavix) 75 mg PO QAM [facility] Last Admin: 04/09/18 12:04 Dose: Not Given Furosemide (Lasix) 20 mg PO HS [facility] Last Admin: 04/08/18 21:11 Dose: 20 mg Hydrochlorothiazide (Microzide) 12.5 mg PO DAILY [facility] Last Admin: 04/09/18 12:04 Dose: 12.5 mg Aztreonam (Azactam 1 Gm) 100 mls @ 100 mls/hr IVPB Q12 [facility]; Protocol Stop: 04/15/18 22:01 Last Admin: 04/09/18 12:03 Dose: 100 mls/hr Insulin Detemir (Levemir) 5 unit SC HS [facility] Insulin Human Regular (Humulin R High) 0 units SC ACHS [facility]; Protocol Last Admin: 04/09/18 16:55 Dose: 12 units Isosorbide Mononitrate (Imdur) 60 mg PO DAILY [facility] Last Admin: 04/09/18 12:04 Dose: 60 mg Levothyroxine Sodium (Synthroid) 50 mcg PO ACB [facility] Last Admin: 04/09/18 12:04 Dose: 50 mcg Losartan Potassium (Cozaar) 100 mg PO DAILY [facility] Last Admin: 04/09/18 12:06 Dose: 100 mg Pantoprazole Sodium (Protonix Ec Tab) 40 mg PO 0600 [facility] Last Admin: 04/09/18 05:23 Dose: 40 mg Venlafaxine HCl (Effexor Xr) 75 mg PO DAILY [facility] Last Admin: 04/09/18 12:04 Dose: 75 mg - Labs Labs: 04/09/18 06:00 04/09/18 06:00 PT 11.6 SECONDS (9.4-12.5) 04/07/18 11:59 INR 1.03 04/07/18 11:59 APTT 41.4 Seconds (26.9-38.3) H 04/07/18 11:59 Attending/Attestation - Attestation I have personally seen and examined this patient.: Yes I have fully participated in the care of the patient.: Yes I have reviewed all pertinent clinical information, including history, physical exam and plan: Yes Notes (Text): Patient seen and examined by me with resident at 10:20AM on 04/08/18. Case including HPI, physical exam, and assessment and plan discussed with resident. Agree with above with following additions/corrections. Patient is a 67-year-old female with past medical history significant for coronary artery disease status post stent placement, insulin-dependent type 2 diabetes, hypertension, hypothyroidism, and depression that presented to the e mergency room with chest pain. [place] head of marketing adometry #[id number] used for translation. Patient states she feels a little better. Patient still with intermittent chest pain. States she tried to ambulate earlier but felt dizzy and "unsteady on my feet." Patient denies any shortness of breath or palpitations. No nausea, vomiting, or abdominal pain. No dysuria or burning with urination. Physical exam: General: Awake and alert sitting up in bed in no acute distress HEENT: Normocephalic, atraumatic. Extraocular muscles intact, pupils equal and reactive, no scleral icterus. Oropharynx is pink and moist. No pharyngeal erythema or exudate apreciated. Neck is supple. Cardiovascular: Regular rhythm. Normal S1 and S2. No murmurs, rubs, or gallops appreciated Pulmonary: Normal respiratory effort. No rhonchi, rales, or wheezing appreciated. Gastrointestinal: Soft, nondistended. Nontender. Positive bowel sounds all 4 quadrants. No guarding. Musculoskeletal: Moves all extremities. No calf tenderness. Trace bilateral lower extremity pitting edema. Improved left-sided anterior chest wall tenderness with palpation. Central nervous system: AAOx3, CN 2-12 grossly intact. Dermatologic: Skin warm and dry. Assessment and plan: Patient is a 67-year-old female with past medical history significant for coronary artery disease status post stent placement, insulin- dependent type 2 diabetes, hypertension, hypothyroidism, and depression that presented to the emergency room with chest pain. 1. Chest pain in a patient with history of CAD. Pain improved. Rule out ACS. Cardiology following, recommendations appreciated. Continue aspirin, Lipitor, Plavix, Imdur, and Cozaar. Troponins within normal limits. TSH within normal limits. HgbA1c 8.9. Lipid panel with elevated triglycerides. Patient with contin ued chest pain. For cardiac cath in AM. 2. UTI. Pending urine culture. ID following, recommendations appreciated. Continue Azactam. History of ESBL. 3. PAGE. May have underlying CKD. Creatinine stable. Continue to monitor. Follow up renal ultrasound. 4. Insulin-dependent type 2 diabetes with hyperglycemia. Continue insulin sliding scale. Continue to monitor accuchecks. HgbA1C 8.9. 5. Hypertension. Continue home Lasix, hydrochlorothiazide, Cozaar, Norvasc, and Imdur 6. Hypothyroidism. Continue Synthroid. TSH within normal limits. 7. Depression. Continue home Effexor. 8. Chronic hematuria. Patient to continue to follow with her primary care doctor as an outpatient. H&H within normal limits here. 9. GI/DVT prophylaxis. Protonix/Lovenox 10. Patient is a full code. Case was discussed in detail with the patient regarding current diagnosis and treatment plan. All questions answered.
--- NOTE | 2018-04-08 12:43 | CP.PCM.PN ---
Subjective - Date & Time of Evaluation Date of Evaluation: 04/08/18 Time of Evaluation: 12:42 - Subjective Subjective: INTERNAL MEDICINE PROGRESS NOTE FOR DR. SHILOH Sadler PGY1 Interpretor: Objective - Vital Signs/Intake and Output Vital Signs (last 24 hours): Temp Pulse Resp BP Pulse Ox 98 F 99 H 20 111/50 L 99 04/07/18 16:10 04/08/18 06:00 04/07/18 19:58 04/07/18 21:26 04/07/18 16:10 Intake and Output: 04/08/18 04/08/18 06:59 18:59 Intake Total 240 Output Total 100 Balance 140 - Medications Medications: Current Medications Albuterol/Ipratropium (Duoneb 3 Mg/0.5 Mg (3 Ml) Ud) 3 ml IH Q2H PRN PRN Reason: Shortness of Breath Amlodipine Besylate (Norvasc) 10 mg PO HS [facility] Last Admin: 04/07/18 21:26 Dose: 10 mg Aspirin (Ecotrin) 81 mg PO DAILY [facility] Last Admin: 04/08/18 09:52 Dose: 81 mg Atorvastatin Calcium (Lipitor) 80 mg PO DIN [facility] Last Admin: 04/07/18 16:43 Dose: 80 mg Clopidogrel Bisulfate (Plavix) 75 mg PO QAM [facility] Last Admin: 04/08/18 09:52 Dose: 75 mg Enoxaparin Sodium (Lovenox) 40 mg SC DAILY [facility]; Protocol Last Admin: 04/08/18 09:52 Dose: 40 mg Furosemide (Lasix) 20 mg PO HS [facility] Last Admin: 04/07/18 21:26 Dose: 20 mg Hydrochlorothiazide (Microzide) 12.5 mg PO DAILY [facility] Last Admin: 04/08/18 09:53 Dose: 12.5 mg Insulin Human Regular (Humulin R High) 0 units SC [facility]; Protocol Last Admin: 04/08/18 11:55 Dose: 10 units Isosorbide Mononitrate (Imdur Er) 30 mg PO DAILY [facility] Last Admin: 04/08/18 09:53 Dose: 30 mg Levothyroxine Sodium (Synthroid) 50 mcg PO ACB [facility] Last Admin: 04/08/18 08:34 Dose: 50 mcg Losartan Potassium (Cozaar) 100 mg PO DAILY [facility] Last Admin: 04/08/18 09:53 Dose: 100 mg Pantoprazole Sodium (Protonix Ec Tab) 40 mg PO 0600 [facility] Last Admin: 04/08/18 06:20 Dose: 40 mg Venlafaxine HCl (Effexor Xr) 75 mg PO DAILY [facility] Last Admin: 04/08/18 09:52 Dose: 75 mg - Labs Labs: 04/08/18 07:00 04/08/18 07:00 PT 11.6 SECONDS (9.4-12.5) 04/07/18 11:59 INR 1.03 04/07/18 11:59 APTT 41.4 Seconds (26.9-38.3) H 04/07/18 11:59
--- NOTE | 2018-04-08 12:43 | CARD ---
APPROVED REPORT Date of service: 04/07/2018 EKG Measurement Heart [id number] <Conclusion> Normal sinus rhythm Normal ECG
--- NOTE | 2018-04-08 12:48 | CARD ---
APPROVED REPORT Date of service: 04/07/2018 EKG Measurement Heart [id number] <Conclusion> Normal sinus rhythm Normal ECG
--- NOTE | 2018-04-08 15:11 | CON ---
DATE: 04/08/2018 CARDIOLOGY CONSULTATION HISTORY: The patient is a 67-year-old woman who presents with chest pain. This is associated with mild shortness of breath. PAST MEDICAL HISTORY: The patient's past medical history includes diabetes mellitus, hypertension, and hypercholesterolemia. In 04/2018, she underwent PTCA and stent of two vessels. She has been fine until recently when she has developed chest pain. Currently, the patient is still having mild chest discomfort. SOCIAL HISTORY: The patient does not smoke. REVIEW OF SYSTEMS: Fourteen-point review of systems is reviewed in detail. Other than her chest pain, no dyspnea is noted. PHYSICAL EXAMINATION: VITAL SIGNS: Blood pressure is 132/67, heart rate is in the 80s. NECK: Negative JVD. LUNGS: Without rales. CARDIAC: Heart rate S1, S2. EXTREMITIES: Without edema. EKG reveals normal sinus rhythm with no acute changes. LABORATORY DATA: Troponins are negative x3. BUN and creatinine are 28 and 1.4 with a glucose of 268. IMPRESSION: 1. Recurrent angina. 2. No evidence for acute coronary syndrome. 3. Status post percutaneous transluminal coronary angioplasty and stent of two vessel. 4. Diabetes mellitus. 5. Hypertension. 6. Hypercholesterolemia. PLAN: Given these findings, trial of Protonix as well as increasing her Imdur to 60 mg to treat her chest pain. We will continue to observe on change of medications for the next 24 to 48 hours. Zachary Giles MD
--- NOTE | 2018-04-08 15:58 | CP.PCM.CON ---
History of Present Illness - History of Present Illness History of Present Illness: 67 year old female with PMH of CAD S/P PCI, DM, HTN, S/P cholecystectomy [place] [facility] [place] sided chest pain with SOB. She was also complaining of dysuria and some flank pain on the right side, and occasional hematuria. She denies fever or chills, no nausea or vomiting, no headache or dizziness, no diarrhea, no abdominal pain, no sore throat, no rhinorrhea, no cough. Urinalysis is showing pyuria and Infectious diseases consult is requested to further evaluate and manage. Review of Systems - Review of Systems All systems: reviewed and no additional remarkable complaints except (as per HPI) Past Patient History - Infectious Disease Hx of Infectious Diseases: None - Past Social History Smoking Status: Never Smoked - CARDIAC Hx Cardiac Disorders: Yes Hx Hypertension: Yes - PULMONARY Hx Respiratory Disorders: No - NEUROLOGICAL Hx Neurological Disorder: No - HEENT Hx HEENT Problems: No - RENAL Hx Chronic Kidney Disease: Yes - ENDOCRINE/METABOLIC Hx Endocrine Disorders: Yes Hx Diabetes Mellitus Type 2: Yes Hx Hypothyroidism: Yes - HEMATOLOGICAL/ONCOLOGICAL Hx Blood Disorders: No - INTEGUMENTARY Hx Dermatological Problems: No - MUSCULOSKELETAL/RHEUMATOLOGICAL Hx Musculoskeletal Disorders: Yes Hx Falls: Yes - GASTROINTESTINAL Hx Gastrointestinal Disorders: Yes (obese) - GENITOURINARY/GYNECOLOGICAL Hx Genitourinary Disorders: Yes - PSYCHIATRIC Hx Psychophysiologic Disorder: Yes Hx Depression: Yes Hx Substance Use: No - SURGICAL HISTORY Hx Cardiac Catheterization: Yes Hx Cholecystectomy: Yes Hx Coronary Stent: Yes (x2) - ANESTHESIA Hx Anesthesia: Yes Hx Anesthesia Reactions: No Hx Malignant Hyperthermia: No Meds Allergies/Adverse Reactions: Allergies Allergy/AdvReac Type Severity Reaction Status Date / Time Penicillins Allergy RASH Verified 11/25/17 22:29 - Medications Medications: Current Medications Albuterol/Ipratropium (Duoneb 3 Mg/0.5 Mg (3 Ml) Ud) 3 ml IH Q2H PRN PRN Reason: Shortness of Breath Amlodipine Besylate (Norvasc) 10 mg PO HS [facility] Last Admin: 04/07/18 21:26 Dose: 10 mg Aspirin (Ecotrin) 81 mg PO DAILY [facility] Last Admin: 04/08/18 09:52 Dose: 81 mg Atorvastatin Calcium (Lipitor) 80 mg PO DIN [facility] Last Admin: 04/07/18 16:43 Dose: 80 mg Clopidogrel Bisulfate (Plavix) 75 mg PO QAM [facility] Last Admin: 04/08/18 09:52 Dose: 75 mg Enoxaparin Sodium (Lovenox) 40 mg SC DAILY [facility]; Protocol Last Admin: 04/08/18 09:52 Dose: 40 mg Furosemide (Lasix) 20 mg PO HS [facility] Last Admin: 04/07/18 21:26 Dose: 20 mg Hydrochlorothiazide (Microzide) 12.5 mg PO DAILY [facility] Last Admin: 04/08/18 09:53 Dose: 12.5 mg Insulin Human Regular (Humulin R High) 0 units SC ACHS [facility]; Protocol Last Admin: 04/08/18 08:34 Dose: 10 units Isosorbide Mononitrate (Imdur Er) 30 mg PO DAILY [facility] Last Admin: 04/08/18 09:53 Dose: 30 mg Levothyroxine Sodium (Synthroid) 50 mcg PO ACB [facility] Last Admin: 04/08/18 08:34 Dose: 50 mcg Losartan Potassium (Cozaar) 100 mg PO DAILY [facility] Last Admin: 04/08/18 09:53 Dose: 100 mg Pantoprazole Sodium (Protonix Ec Tab) 40 mg PO 0600 [facility] Last Admin: 04/08/18 06:20 Dose: 40 mg Venlafaxine HCl (Effexor Xr) 75 mg PO DAILY [facility] Last Admin: 04/08/18 09:52 Dose: 75 mg Physical Exam - Constitutional Appears: Chronically Ill - Head Exam Head Exam: NORMAL INSPECTION - Respiratory Exam Respiratory Exam: Decreased Breath Sounds - Cardiovascular Exam Cardiovascular Exam: +S1, +S2 - GI/Abdominal Exam GI & Abdominal Exam: Soft. absent: Tenderness Results - Vital Signs Recent Vital Signs: Last Vital Signs Temp 98 F 04/07/18 16:10 Pulse 99 H 04/08/18 06:00 Resp 20 04/07/18 19:58 BP 111/50 L 04/07/18 21:26 Pulse Ox 99 04/07/18 16:10 - Labs Result Diagrams: 04/08/18 07:00 04/08/18 07:00 Labs: Laboratory Results - last 24 hr 04/07/18 04/07/18 04/07/18 11:59 11:59 11:59 WBC 6.6 RBC 4.29 Hgb 13.1 Hct 38.6 MCV 90.0 MCH 30.5 MCHC 33.9 RDW 15.2 H Plt Count 258 MPV 9.6 Neut % (Auto) 72.3 H Lymph % (Auto) 21.8 L [place] % (Auto) 4.6 Eos % (Auto) 0.8 L Baso % (Auto) 0.5 Lymph # (Auto) 1.4 [place] # (Auto) 0.3 Eos # (Auto) 0.1 Baso # (Auto) 0.03 Absolute Neuts (auto) 4.75 PT INR APTT Sodium 135 Potassium 3.9 Chloride 95 L Carbon Dioxide 29 Anion Gap 14 BUN 29 H Creatinine 1.4 H Est GFR ( Amer) 45 Est GFR (Non-Af Amer) 37 Random Glucose 438 H* D Calcium 9.6 Phosphorus Magnesium Total Bilirubin 1.2 AST 23 ALT 31 Alkaline Phosphatase 107 Troponin I 0.01 Total Protein 7.0 Albumin 4.1 Globulin 3.0 Albumin/Globulin Ratio 1.4 Triglycerides Cholesterol LDL Cholesterol Direct HDL Cholesterol TSH 3rd Generation 1.42 Urine Color Urine Appearance Urine pH Ur Specific [place] Urine Protein Urine Glucose (UA) Urine Ketones Urine Blood Urine Nitrate Urine Bilirubin Urine Urobilinogen Ur Leukocyte Esterase Urine RBC Urine WBC Ur Epithelial Cells Urine Bacteria 04/07/18 04/07/18 04/07/18 11:59 17:10 22:52 WBC RBC Hgb Hct MCV MCH MCHC RDW Plt Count MPV Neut % (Auto) Lymph % (Auto) [place] % (Auto) Eos % (Auto) Baso % (Auto) Lymph # (Auto) [place] # (Auto) Eos # (Auto) Baso # (Auto) Absolute Neuts (auto) PT 11.6 INR 1.03 APTT 41.4 H Sodium Potassium Chloride Carbon Dioxide Anion Gap BUN Creatinine Est GFR ( Amer) Est GFR (Non-Af Amer) Random Glucose Calcium Phosphorus Magnesium Total Bilirubin AST ALT Alkaline Phosphatase Troponin I < 0.01 0.02 D Total Protein Albumin Globulin Albumin/Globulin Ratio Triglycerides Cholesterol LDL Cholesterol Direct HDL Cholesterol TSH 3rd Generation Urine Color Urine Appearance Urine pH Ur Specific [place] Urine Protein Urine Glucose (UA) Urine Ketones Urine Blood Urine Nitrate Urine Bilirubin Urine Urobilinogen Ur Leukocyte Esterase Urine RBC Urine WBC Ur Epithelial Cells Urine Bacteria 04/08/18 04/08/18 04/08/18 05:55 07:00 07:00 WBC 6.6 RBC 4.28 Hgb 13.0 Hct 38.9 MCV 90.9 MCH 30.4 MCHC 33.4 RDW 15.4 H Plt Count 235 MPV 9.5 Neut % (Auto) 63.0 Lymph % (Auto) 29.7 [place] % (Auto) 4.7 Eos % (Auto) 2.0 Baso % (Auto) 0.6 Lymph # (Auto) 2.0 [place] # (Auto) 0.3 Eos # (Auto) 0.1 Baso # (Auto) 0.04 Absolute Neuts (auto) 4.17 PT INR APTT Sodium 139 Potassium 3.7 Chloride 98 Carbon Dioxide 32 Anion Gap 12 BUN 28 H Creatinine 1.4 H Est GFR ( Amer) 45 Est GFR (Non-Af Amer) 37 Random Glucose 268 H Calcium 9.4 Phosphorus 3.6 Magnesium 2.1 Total Bilirubin 1.0 AST 16 ALT 29 Alkaline Phosphatase 102 Troponin I Total Protein 7.1 Albumin 4.1 Globulin 3.1 Albumin/Globulin Ratio 1.3 Triglycerides 298 H Cholesterol 141 LDL Cholesterol Direct 67 HDL Cholesterol 26 L TSH 3rd Generation Urine Color Yellow Urine Appearance Cloudy Urine pH 6.5 Ur Specific [place] 1.020 Urine Protein 30 H Urine Glucose (UA) Negative Urine Ketones Negative Urine Blood Moderate H Urine Nitrate Positive H Urine Bilirubin Negative Urine Urobilinogen 1.0 H Ur Leukocyte Esterase Small H Urine RBC 0 - 2 Urine WBC 15 - 20 H Ur Epithelial Cells 0 - 2 Urine Bacteria Many 04/08/18 04/08/18 07:00 07:00 WBC RBC Hgb Hct MCV MCH MCHC RDW Plt Count MPV Neut % (Auto) Lymph % (Auto) [place] % (Auto) Eos % (Auto) Baso % (Auto) Lymph # (Auto) [place] # (Auto) Eos # (Auto) Baso # (Auto) Absolute Neuts (auto) PT INR APTT Sodium Potassium Chloride Carbon Dioxide Anion Gap BUN Creatinine Est GFR ( Amer) Est GFR (Non-Af Amer) Random Glucose Calcium Phosphorus Magnesium Total Bilirubin AST ALT Alkaline Phosphatase Troponin I 0.01 D Total Protein Albumin Globulin Albumin/Globulin Ratio Triglycerides Cholesterol LDL Cholesterol Direct HDL Cholesterol TSH 3rd Generation 1.50 Urine Color Urine Appearance Urine pH Ur Specific [place] Urine Protein Urine Glucose (UA) Urine Ketones Urine Blood Urine Nitrate Urine Bilirubin Urine Urobilinogen Ur Leukocyte Esterase Urine RBC Urine WBC Ur Epithelial Cells Urine Bacteria Assessment & Plan - Assessment and Plan (Free Text) Plan: Assessment consider urinary tract infection, R/O nephrolithiasis CAD S/P PCI DM HTN S/P cholecystectomy Plan started Azactam pending blood and urine cx will get renal ultrasound follow up evaluation and recommendations of Cardiology will monitor clinically
[2018-04-08] MEDS: Aztreonam 1 Gm in NS 100mL 100 ML IVPB SCH (21:11)
[2018-04-09] MEDS: Pantoprazole 40 mg EC Tab PO SCH (05:23)
[2018-04-09 06:45] LABS: BASO # 0.06 K/mm3 (0.0-2.0); EOS # 0.2 (0.0-0.7); EOS % 2.8 % (1.5-5.0); LYMPH # 1.8 (1.2-3.4); MEAN CELL VOLUME 90.8 fl (80.0-105.0); MEAN CORPUSCULAR HEMOGLOBIN 30.8 pg (25.0-35.0); MEAN CORPUSCULAR HGB CONC 33.9 g/dl (31.0-37.0); MEAN PLATELET VOLUME 9.6 fl (7.0-11.0); MONO # 0.2 (0.1-0.6); RBC 4.22 10^6/uL (3.5-6.1); RED CELL DISTRIBUTION WIDTH 15.2 % (11.5-14.5); WHITE BLOOD COUNT 5.7 10^3/uL (4.5-11.0)
[2018-04-09 06:52] LABS: ALB/GLOB RATIO 1.4 (1.1-1.8); ALBUMIN 4.1 g/dL (3.0-4.8); CALCIUM 9.6 mg/dL (8.4-10.5)
[2018-04-09] MEDS ORDERED: Iodixanol 320 MG/ML 100 ML BOTTLE IV ONE (09:01)
[2018-04-09] MEDS ORDERED: Lidocaine 2% Inj (20ml) ONE (09:01)
[2018-04-09] MEDS ORDERED: Iodixanol 320 MG/ML 200 ML BOTTLE IV ONE (09:01)
[2018-04-09] MEDS ORDERED: Midazolam 2 MG/2 ML VIAL ONE ×2 (09:31→09:42)
[2018-04-09] MEDS ORDERED: Adenosine 90 mg/30mL IV ONE (09:54)
[2018-04-09] MEDS ORDERED: Sodium Chloride 0.9% 1,000 ML IV SCH (10:15)
--- NOTE | 2018-04-09 11:47 | CARD ---
APPROVED REPORT Date of service: 04/09/2018 EKG Measurement Heart [id number] <Conclusion> Normal sinus rhythm Nonspecific T wave abnormality Abnormal ECG
[2018-04-09] MEDS: Insulin Reg-HIGH-Coverage SC SCH ×4 (11:55→22:33)
[2018-04-09] MEDS: Aztreonam 1 Gm in NS 100mL 100 ML IVPB SCH ×2 (12:03→22:34)
[2018-04-09] MEDS: Venlafaxine 75 mg ER Cap PO SCH (12:04)
[2018-04-09] MEDS: Levothyroxine 50 MCG TAB PO SCH (12:04)
--- NOTE | 2018-04-09 12:53 | CARDCATH ---
PROCEDURE DATE: 04/09/2018 HISTORY: The patient is 67-year-old woman who presents with recurrence of exertional angina. The patient has had multivessel PTCA and stent in the past. She states she has been compliant with her medications. A myocardial infarction was ruled out with negative troponins. Because of her ongoing symptoms, cardiac catheterization was recommended. PROCEDURE: Left heart catheterization with coronary arteriography and left ventriculogram followed by FFR of the LAD. The right femoral artery was cannulated with 6-Slovak sheath. There were no complications. I performed moderate sedation which included the presence of an independent trained observer that assisted in monitoring the patient's level of consciousness and physiologic status. After administration of Versed and fentanyl, my intra service time was 30 minutes. The findings on catheterization revealed a left ventricle that contracted normally. Estimated ejection fraction of 55%-60%. Her coronary anatomy revealed a right dominant circulation. The RCA revealed a patent stent in its proximal portion. There is intimal irregularities without critical lesions. The left main artery was unremarkable. The circumflex artery and obtuse marginal branches revealed intimal irregularities without critical lesions. The LAD revealed a patent stent in the midportion. In the proximal portion, there was an irregular eccentric lesion of approximately 50% noted just after the takeoff of the diagonal vessel. An FFR was performed of the proximal LAD lesion. The FFR was 0.96. No intervention was performed on the LAD lesion. Angio-Seal was used to close the femoral artery site. The patient tolerated the procedure well. In summary, the procedure revealed patent stents in the mid LAD as well as in the proximal RCA. There is a borderline 50%-60% stenosis in the proximal LAD in which the FFR was 0.96, therefore no intervention was performed on that lesion. LV function is normal with an EF of 60%. Given these findings, the patient's treatment will be continued medical therapy. Her PRU revealed that the patient was therapeutic with her Plavix dose. We will continue her cardiac risk reduction program. Zachary Giles MD
--- NOTE | 2018-04-09 13:16 | CP.PCM.PN ---
Subjective - Date & Time of Evaluation Date of Evaluation: 04/09/18 Time of Evaluation: 09:45 - Subjective Subjective: Afebrile, comfortable, no diarrhea. Objective - Vital Signs/Intake and Output Vital Signs (last 24 hours): Temp Pulse Resp BP Pulse Ox 98 F 81 18 132/67 99 04/08/18 13:07 04/08/18 13:07 04/08/18 13:07 04/08/18 13:07 04/07/18 16:10 Intake and Output: 04/08/18 04/08/18 06:59 18:59 Intake Total 240 Output Total 100 Balance 140 - Medications Medications: Current Medications Albuterol/Ipratropium (Duoneb 3 Mg/0.5 Mg (3 Ml) Ud) 3 ml IH Q2H PRN PRN Reason: Shortness of Breath Amlodipine Besylate (Norvasc) 10 mg PO HS [facility] Last Admin: 04/07/18 21:26 Dose: 10 mg Aspirin (Ecotrin) 81 mg PO DAILY [facility] Last Admin: 04/08/18 09:52 Dose: 81 mg Atorvastatin Calcium (Lipitor) 80 mg PO DIN [facility] Last Admin: 04/07/18 16:43 Dose: 80 mg Clopidogrel Bisulfate (Plavix) 75 mg PO QAM [facility] Last Admin: 04/08/18 09:52 Dose: 75 mg Furosemide (Lasix) 20 mg PO HS [facility] Last Admin: 04/07/18 21:26 Dose: 20 mg Hydrochlorothiazide (Microzide) 12.5 mg PO DAILY [facility] Last Admin: 04/08/18 09:53 Dose: 12.5 mg Aztreonam (Azactam 1 Gm) 100 mls @ 100 mls/hr IVPB Q12 [facility]; Protocol Stop: 04/15/18 22:01 Insulin Human Regular (Humulin R High) 0 units SC ACHS [facility]; Protocol Last Admin: 04/08/18 11:55 Dose: 10 units Isosorbide Mononitrate (Imdur) 60 mg PO DAILY [facility] Levothyroxine Sodium (Synthroid) 50 mcg PO ACB [facility] Last Admin: 04/08/18 08:34 Dose: 50 mcg Losartan Potassium (Cozaar) 100 mg PO DAILY [facility] Last Admin: 04/08/18 09:53 Dose: 100 mg Pantoprazole Sodium (Protonix Ec Tab) 40 mg PO 0600 [facility] Last Admin: 04/08/18 06:20 Dose: 40 mg Venlafaxine HCl (Effexor Xr) 75 mg PO DAILY [facility] Last Admin: 04/08/18 09:52 Dose: 75 mg - Labs Labs: 04/08/18 07:00 04/08/18 07:00 PT 11.6 SECONDS (9.4-12.5) 04/07/18 11:59 INR 1.03 04/07/18 11:59 APTT 41.4 Seconds (26.9-38.3) H 04/07/18 11:59 - Constitutional Appears: No Acute Distress, Chronically Ill - Head Exam Head Exam: NORMAL INSPECTION - Respiratory Exam Respiratory Exam: Decreased Breath Sounds - Cardiovascular Exam Cardiovascular Exam: +S1, +S2 - GI/Abdominal Exam GI & Abdominal Exam: Soft. absent: Tenderness Assessment and Plan - Assessment and Plan (Free Text) Plan: Assessment consider urinary tract infection, R/O nephrolithiasis CAD S/P PCI DM HTN S/P cholecystectomy Plan continue Azactam day 2 pending blood and urine cx will get renal ultrasound follow up evaluation and recommendations of Cardiology will monitor clinically discussed with Dr. Jerrod Chaves
--- NOTE | 2018-04-09 13:52 | CP.PCM.PN ---
<Yaw Sadler - Last Filed: 04/09/18 14:13> Subjective - Date & Time of Evaluation Date of Evaluation: 04/09/18 Time of Evaluation: 11:00 - Subjective Subjective: INTERNAL MEDICINE PROGRESS NOTE FOR DR. ANASTACIO Sadler PGY1 Pt seen and examined at bedside this am. No acute events overnight. Pt denies 12 point ROS Objective - Vital Signs/Intake and Output Vital Signs (last 24 hours): Temp Pulse Resp BP Pulse Ox 97.4 F L 87 18 118/65 97 04/09/18 12:00 04/09/18 12:00 04/09/18 12:00 04/09/18 12:00 04/09/18 06:00 Intake and Output: 04/09/18 04/09/18 06:59 18:59 Intake Total 1320 Output Total 1250 Balance 70 - Medications Medications: Current Medications Albuterol/Ipratropium (Duoneb 3 Mg/0.5 Mg (3 Ml) Ud) 3 ml IH Q2H PRN PRN Reason: Shortness of Breath Amlodipine Besylate (Norvasc) 10 mg PO HS [facility] Last Admin: 04/08/18 21:11 Dose: 10 mg Aspirin (Ecotrin) 81 mg PO DAILY [facility] Last Admin: 04/09/18 12:04 Dose: Not Given Atorvastatin Calcium (Lipitor) 80 mg PO DIN [facility] Last Admin: 04/08/18 18:01 Dose: 80 mg Clopidogrel Bisulfate (Plavix) 75 mg PO QAM [facility] Last Admin: 04/09/18 12:04 Dose: Not Given Furosemide (Lasix) 20 mg PO HS [facility] Last Admin: 04/08/18 21:11 Dose: 20 mg Hydrochlorothiazide (Microzide) 12.5 mg PO DAILY [facility] Last Admin: 04/09/18 12:04 Dose: 12.5 mg Aztreonam (Azactam 1 Gm) 100 mls @ 100 mls/hr IVPB Q12 [facility]; Protocol Stop: 04/15/18 22:01 Last Admin: 04/09/18 12:03 Dose: 100 mls/hr Sodium Chloride (Sodium Chloride 0.9%) 1,000 mls @ 100 mls/hr IV .Q10H [facility] Stop: 04/09/18 16:00 Last Admin: 04/09/18 12:06 Dose: 100 mls/hr Insulin Human Regular (Humulin R High) 0 units SC ACHS [facility]; Protocol Last Admin: 04/09/18 12:13 Dose: Not Given Isosorbide Mononitrate (Imdur) 60 mg PO DAILY [facility] Last Admin: 04/09/18 12:04 Dose: 60 mg Levothyroxine Sodium (Synthroid) 50 mcg PO ACB [facility] Last Admin: 04/09/18 12:04 Dose: 50 mcg Losartan Potassium (Cozaar) 100 mg PO DAILY [facility] Last Admin: 04/09/18 12:06 Dose: 100 mg Pantoprazole Sodium (Protonix Ec Tab) 40 mg PO 0600 [facility] Last Admin: 04/09/18 05:23 Dose: 40 mg Venlafaxine HCl (Effexor Xr) 75 mg PO DAILY [facility] Last Admin: 04/09/18 12:04 Dose: 75 mg - Labs Labs: 04/09/18 06:00 04/09/18 06:00 PT 11.6 SECONDS (9.4-12.5) 04/07/18 11:59 INR 1.03 04/07/18 11:59 APTT 41.4 Seconds (26.9-38.3) H 04/07/18 11:59 - Constitutional Appears: Well, Non-toxic, No Acute Distress - Head Exam Head Exam: NORMAL INSPECTION, NORMOCEPHALIC - Eye Exam Eye Exam: EOMI, Normal appearance - ENT Exam ENT Exam: Mucous Membranes Moist, Normal Exam - Neck Exam Neck Exam: Normal Inspection - Respiratory Exam Respiratory Exam: Clear to Ausculation Bilateral, NORMAL BREATHING PATTERN - Cardiovascular Exam Cardiovascular Exam: REGULAR RHYTHM, +S1, +S2 - GI/Abdominal Exam GI & Abdominal Exam: Normal Bowel Sounds - Extremities Exam Extremities Exam: Normal Inspection. absent: Calf Tenderness - Back Exam Back Exam: NORMAL INSPECTION - Neurological Exam Neurological Exam: Alert, Awake, Oriented x3 - Psychiatric Exam Psychiatric exam: Normal Affect - Skin Skin Exam: Dry, Intact, Warm Assessment and Plan - Assessment and Plan (Free Text) Assessment: 67 y/o F with PMHx of CAD s/p stent, IDDM2, HTN, Hypothyroidism, depression presented to ED with complaints of chest pain Plan: Chest Pain pt s/p cardiac cath. 50-60% stenosis in the proximal LAD. No intervention was performed as FFR in that region was 0.96 f/u cardio recs post procedure CTA negative for PE Continue aspirin, plavix, imdur UTI Pt penicillin allergic, hx of ESBL e.coli continue azactam per ID recs f/u cultures f/u renal ultrasound to r/o nephrolithiasis/hydronephrosis H&H wnl PAGE likely 2/2 lasix continue NS@100 IDDM2 A1C 8.9 ISS HTN continue amlodipine, cozaar, HCTZ, lasix Hypothyroidism tsh wnl continue synthroid Depression continue venlafaxine GI/DVT Ppx: PTX/SCD Dispo: PT recs home w/ services Case seen, examined and discussed with attending physician, Dr. Anastacio Sadler PGY1 <Lynda Chaves R - Last Filed: 04/10/18 07:31> Objective - Vital Signs/Intake and Output Vital Signs (last 24 hours): Temp Pulse Resp BP Pulse Ox 97.9 F 68 16 132/75 98 04/10/18 06:00 04/10/18 00:01 04/10/18 06:00 04/10/18 06:00 04/10/18 06:00 Intake and Output: 04/10/18 04/10/18 06:59 18:59 Intake Total 480 Balance 480 - Medications Medications: Current Medications Albuterol/Ipratropium (Duoneb 3 Mg/0.5 Mg (3 Ml) Ud) 3 ml IH Q2H PRN PRN Reason: Shortness of Breath Amlodipine Besylate (Norvasc) 10 mg PO HS [facility] Last Admin: 04/09/18 22:22 Dose: Not Given Aspirin (Ecotrin) 81 mg PO DAILY [facility] Last Admin: 04/09/18 12:04 Dose: Not Given Atorvastatin Calcium (Lipitor) 80 mg PO DIN [facility] Last Admin: 04/09/18 16:55 Dose: 80 mg Clopidogrel Bisulfate (Plavix) 75 mg PO QAM [facility] Last Admin: 04/09/18 12:04 Dose: Not Given Furosemide (Lasix) 20 mg PO HS [facility] Last Admin: 04/09/18 22:21 Dose: Not Given Hydrochlorothiazide (Microzide) 12.5 mg PO DAILY [facility] Last Admin: 04/09/18 12:04 Dose: 12.5 mg Aztreonam (Azactam 1 Gm) 100 mls @ 100 mls/hr IVPB Q12 [facility]; Protocol Stop: 04/15/18 22:01 Last Admin: 04/09/18 22:34 Dose: 100 mls/hr Insulin Detemir (Levemir) 5 unit SC HS [facility] Last Admin: 04/09/18 22:34 Dose: 5 units Insulin Human Regular (Humulin R High) 0 units SC ACHS [facility]; Protocol Last Admin: 04/09/18 22:33 Dose: Not Given Isosorbide Mononitrate (Imdur) 60 mg PO DAILY [facility] Last Admin: 04/09/18 12:04 Dose: 60 mg Levothyroxine Sodium (Synthroid) 50 mcg PO ACB [facility] Last Admin: 04/09/18 12:04 Dose: 50 mcg Losartan Potassium (Cozaar) 100 mg PO DAILY [facility] Last Admin: 04/09/18 12:06 Dose: 100 mg Pantoprazole Sodium (Protonix Ec Tab) 40 mg PO 0600 [facility] Last Admin: 04/10/18 06:45 Dose: 40 mg Venlafaxine HCl (Effexor Xr) 75 mg PO DAILY [facility] Last Admin: 04/09/18 12:04 Dose: 75 mg - Labs Labs: 04/10/18 07:00 04/09/18 06:00 PT 11.6 SECONDS (9.4-12.5) 04/07/18 11:59 INR 1.03 04/07/18 11:59 APTT 41.4 Seconds (26.9-38.3) H 04/07/18 11:59 Attending/Attestation - Attestation I have personally seen and examined this patient.: Yes I have fully participated in the care of the patient.: Yes I have reviewed all pertinent clinical information, including history, physical exam and plan: Yes Notes (Text): Patient seen and examined by me with resident at 2PM on 04/09/18. Case including HPI, physical exam, and assessment and plan discussed with resident. Agree with above with following additions/corrections. Patient is a 67-year-old female with past medical history significant for coronary artery disease status post stent placement, insulin-dependent type 2 diabetes, hypertension, hypothyroidism, and depression that presented to the emergency room with chest pain. [place]ic steward/stewardess club car used for translation. Patient states she feels better today. Patient is s/p cardiac catheterization. Patient denies pain at cardiac cath site. Patient had some chest pain with ambulation yesterday. Patient has not ambulated since procedure. Patient denies any current chest pain or palpitations. No nausea, vomiting, or abdominal pain. No dysuria or burning with urination. Physical exam: General: Awake and alert sitting up in bed in no acute distress HEENT: Normocephalic, atraumatic. Extraocular muscles intact, pupils equal and reactive, no scleral icterus. Oropharynx is pink and moist. No pharyngeal erythema or exudate apreciated. Neck is supple. Cardiovascular: Regular rhythm. Normal S1 and S2. No murmurs, rubs, or gallops appreciated Pulmonary: Normal respiratory effort. No rhonchi, rales, or wheezing appreciated. Gastrointestinal: Soft, nondistended. Nontender. Positive bowel sounds all 4 quadrants. No guarding. Musculoskeletal: Moves all extremities. No calf tenderness. Trace bilateral lower extremity pitting edema. Improved left-sided anterior chest wall tenderness with palpation. Central nervous system: AAOx3, CN 2-12 grossly intact. Dermatologic: Skin warm and dry. Right groin dressing clean, dry, and intact. Assessment and plan: Patient is a 67-year-old female with past medical history significant for coronary artery disease status post stent placement, insulin- dependent type 2 diabetes, hypertension, hypothyroidism, and depression that presented to the emergency room with chest pain. 1. Chest pain in a patient with history of CAD. Pain improved. Patient s/p cardiac cath. Cardiology following, recommendations appreciated. Continue aspirin, Lipitor, Plavix, Imdur, and Cozaar. Cardiac cath per digital assistant showed patent stents in the mid LAD as well as in the proximal RCA, borderline 50-60% stenosis in the proximal LAD, LV function normal with an EF of 60%. Continue medication management and cardiac risk reduction.Troponins within normal limits. TSH within normal limits. HgbA1c 8.9. Lipid panel with elevated triglycerides. 2. UTI. Pending urine culture. ID following, recommendations appreciated. Continue Azactam. History of ESBL. 3. PAGE. May have underlying CKD. Creatinine downtrended. Continue to monitor. Renal ultrasound per radiologist showed unremarkable renal sonogram. 4. Insulin-dependent type 2 diabetes with hyperglycemia. Continue insulin sliding scale. Started on Levemir 5 units at bedtime. Continue to monitor accuchecks. HgbA1C 8.9. 5. Hypertension. Continue home Lasix, hydrochlorothiazide, Cozaar, Norvasc, and Imdur 6. Hypothyroidism. Continue Synthroid. TSH within normal limits. 7. Depression. Continue home Effexor. 8. Chronic hematuria. Patient to continue to follow with her PMD as and outp atient. H&H within normal limits here. 9. GI/DVT prophylaxis. Protonix/Lovenox 10. Patient is a full code. Case was discussed in detail with the patient regarding current diagnosis and treatment plan. All questions answered.
--- NOTE | 2018-04-09 15:45 | CP.PCM.APN ---
Subjective - Date & Time of Evaluation Date of Evaluation: 04/09/18 Time of Evaluation: 13:00 - Subjective Subjective: Pt. seen and examined, s/p cardiac catheterization revealed non-obstructive CAD, denied chest pain, denied shortness of breath, denied dizziness, weakness. Review of Systems - Constitutional Constitutional: absent: As Per HPI, Anorexia, Chills, Daytime Sleepiness, Exces sive Sweating, Fatigue, Fever, Frequent Falls, Headache, Increased Appetite, Lethargy, Malaise, Night Sweats, Snoring, Sleep Apnea, Weight Gain, Weight Loss, Weakness, Other - EENT Eyes: absent: As Per HPI, Blind Spots, Blurred Vision, Change in Vision, Decreas ed Night Vision, Diplopia, Discharge, Dry Eye, Exophthalmos, Floaters, Irritation, Itchy Eyes, Loss of Peripheral Vision, Pain, Photophobia, Requires Corrective Lenses, Sees Flashes, Spots in Vision, Tunnel Vision, Other Visual Disturbances, Loss of Vision, Other Ears: absent: As Per HPI, Decreased Hearing, Ear Discharge, Ear Pain, Tinnitus, Abnormal Hearing, Disequilibrium, Dizziness, Other Nose/Mouth/Throat: absent: As Per HPI, Epistaxis, Nasal Congestion, Nasal Discharge, Nasal Obstruction, Nasal Trauma, Nose Pain, Post Nasal Drip, Sinus Pain, Sinus Pressure, Bleeding Gums, Change in Voice, Dental Pain, Dry Mouth, Dysphagia, Halitosis, Hoarsness, Lip Swelling, Mouth Lesions, Mouth Pain, Odynophagia, Sore Throat, Throat Swelling, Tongue Swelling, Facial Pain, Neck Pain, Neck Mass, Other - Breasts Breasts: absent: As Per HPI, Change in Shape, Mass, Pain, Nipple Discharge, Nipple Inversion, Skin Changes, Swelling, Other - Cardiovascular Cardiovascular: Chest Pain - Respiratory Respiratory: absent: As Per HPI, Cough, Dyspnea, Hemoptysis, Dyspnea on Exertion, Wheezing, Snoring, Stridor, Pain on Inspiration, Chest Congestion, Excessive Mucous Production, Change in Mucous Color, Pain with Coughing, Other - Gastrointestinal Gastrointestinal: absent: As Per HPI, Abdominal Pain, Belching, Bloating, Change in Bowel Habits, Change in Stool Character, Coffee Ground Emesis, Constipation, Cramping, Diarrhea, Dyspepsia, Dysphagia, Early Satiety, Excessive Flatus, Fecal Incontinence, Heartburn, Hematemesis, Hematochezia, Loose Stools, Melena, Nausea, Odynophagia, Temesmus, Vomiting, Other - Genitourinary Genitourinary: absent: As Per HPI, Change in Urinary Stream, Difficulty Urinating, Dysuria, Flank Pain, Hematuria, Pyuria, Nocturia, Urinary Incontinence, Urinary Frequency, Urinary Hesitance, Urinary Urgency, Voiding Freq/Small Amts, Freq UTI, Hx Renal/Bladder Calculi, Hx /Renal Surgery, Bladder Distension, Other - Reproductive: Female Reproductive:Female: absent: As Per HPI, Amenorrhea, Amenorrhea/ Control, Currently Menstual, Cycle <21 Days, Cycle >35 Days, Cycle Variable, Menses 1-7 Days, Menses >/= 8 Days, Menses Variable, Cycle > 4 Weeks Between, No Menses for 6 Months, Heavy Menses, Light Menses, Normal Menses, Spotting Between Cycles, S/P Hysterectomy, Menopausal, Post Menopausal, Premenarche, Abnormal Vaginal Bleeding, Dysmenorrhea, Dyspareunia, Genital Lesions, Genital Pruritis, Pelvic Pain, Prolapse Symptoms, Sexual Dysfunction, Vaginal Discharge, Vaginal Dryness, Vaginal Odor, Vaginal Pruritis, Other - Menstruation Menstruation: absent: As Per HPI, Amenorrhea, Amenorrhea/ Control, Currently Menstual, Cycle <21 Days, Cycle >35 Days, Cycle Variable, Menses 1-7 Days, Menses >/= 8 Days, Menses Variable, Cycle > 4 Weeks Between, No Menses for 6 Months, Heavy Menses, Light Menses, Normal Menses, Spotting Between Cycles, S /P Hysterectomy, Menopausal, Post Menopausal, Premenarche, Abnormal Vaginal Bleeding, Dysmenorrhea, Other - Musculoskeletal Musculoskeletal: absent: As Per HPI, Abnormal Gait, Arthralgias, Atrophy, Back Pain, Deformity, Joint Swelling, Limited Range of Motion, Loss of Height, Muscle Cramps, Muscle Weakness, Myalgias, Neck Pain, Numbness, Radiating Pain into L imb, Stiffness, Tingling, Other - Integumentary Integumentary: absent: As Per HPI, Acne, Alopecia, Bleeding Lesions, Change in Hair, Change in Nails, Change in Pigmentation, Changing Lesions, Dry Skin, Erythema, Furuncle, Hirsutism, Lesions, New Lesions, Non-Healing Lesions, Photosensitivity, Pruritus, Rash, Skin Pain, Skin Ulcer, Sores, Striae, Swelling, Unusual Bruising, Wounds, Jaundice, Other - Neurological Neurological: absent: As Per HPI, Abnormal Gait, Abnormal Hearing, Abnormal Movements, Abnormal Speech, Behavioral Changes, Burning Sensations, Confusion, Convulsions, Disequilibrium, Dizziness, Numbness, Focal Weakness, Frequent Falls, Headaches, Lack of Coordination, Loss of Vision, Memory Loss, Paresthe getachew, Radicular Pain, Restless Legs, Sensory Deficit, Syncope, Tingling, Tremor, Vertigo, Weakness, Other Visual Disturbances, Other Objective - Vital Signs/Intake and Output Vital Signs (last 24 hours): Temp Pulse Resp BP Pulse Ox 97.4 F L 87 18 118/65 97 04/09/18 12:00 04/09/18 12:00 04/09/18 12:00 04/09/18 12:00 04/09/18 06:00 Intake and Output: 04/09/18 04/09/18 06:59 18:59 Intake Total 1320 Output Total 1250 Balance 70 - Medications Medications: Current Medications Albuterol/Ipratropium (Duoneb 3 Mg/0.5 Mg (3 Ml) Ud) 3 ml IH Q2H PRN PRN Reason: Shortness of Breath Amlodipine Besylate (Norvasc) 10 mg PO HS [facility] Last Admin: 04/08/18 21:11 Dose: 10 mg Aspirin (Ecotrin) 81 mg PO DAILY [facility] Last Admin: 04/09/18 12:04 Dose: Not Given Atorvastatin Calcium (Lipitor) 80 mg PO DIN [facility] Last Admin: 04/08/18 18:01 Dose: 80 mg Clopidogrel Bisulfate (Plavix) 75 mg PO QAM [facility] Last Admin: 04/09/18 12:04 Dose: Not Given Furosemide (Lasix) 20 mg PO HS [facility] Last Admin: 04/08/18 21:11 Dose: 20 mg Hydrochlorothiazide (Microzide) 12.5 mg PO DAILY [facility] Last Admin: 04/09/18 12:04 Dose: 12.5 mg Aztreonam (Azactam 1 Gm) 100 mls @ 100 mls/hr IVPB Q12 [facility]; Protocol Stop: 04/15/18 22:01 Last Admin: 04/09/18 12:03 Dose: 100 mls/hr Sodium Chloride (Sodium Chloride 0.9%) 1,000 mls @ 100 mls/hr IV .Q10H [facility] Stop: 04/09/18 16:00 Last Admin: 04/09/18 12:06 Dose: 100 mls/hr Insulin Human Regular (Humulin R High) 0 units SC ACHS [facility]; Protocol Last Admin: 04/09/18 12:13 Dose: Not Given Isosorbide Mononitrate (Imdur) 60 mg PO DAILY [facility] Last Admin: 04/09/18 12:04 Dose: 60 mg Levothyroxine Sodium (Synthroid) 50 mcg PO ACB [facility] Last Admin: 04/09/18 12:04 Dose: 50 mcg Losartan Potassium (Cozaar) 100 mg PO DAILY [facility] Last Admin: 04/09/18 12:06 Dose: 100 mg Pantoprazole Sodium (Protonix Ec Tab) 40 mg PO 0600 [facility] Last Admin: 04/09/18 05:23 Dose: 40 mg Venlafaxine HCl (Effexor Xr) 75 mg PO DAILY [facility] Last Admin: 04/09/18 12:04 Dose: 75 mg - Labs Labs: 04/09/18 06:00 04/09/18 06:00 PT 11.6 SECONDS (9.4-12.5) 04/07/18 11:59 INR 1.03 04/07/18 11:59 APTT 41.4 Seconds (26.9-38.3) H 04/07/18 11:59 - Constitutional Appears: Well, Non-toxic - Head Exam Head Exam: NORMOCEPHALIC - Eye Exam Eye Exam: absent: Conjunctival injection, EOMI, Normal appearance, Nystagmus, Periorbital swelling, Periorbital tenderness, PERRL, Scleral icterus - ENT Exam ENT Exam: absent: Mucous Membranes Dry, Mucous Membranes Moist, Normal Exam, Normal External Ear Exam, Normal Oropharynx, TM's Normal Bilaterally - Neck Exam Neck Exam: absent: Full ROM, Lymphadenopathy, Meningismus, Normal Inspection, Tenderness, Thyromegaly - Respiratory Exam Respiratory Exam: absent: Accessory Muscle Use, Chest Wall Tenderness, Decreased Breath Sounds, Clear to Ausculation Bilateral, Prolonged Expiratory Phase, Rales, Rhonchi, Wheezes, Respiratory Distress, Stridor, NORMAL BREATHING PATTERN - Cardiovascular Exam Cardiovascular Exam: +S1, +S2 - GI/Abdominal Exam GI & Abdominal Exam: absent: Bruit, Distended, Firm, Guarding, Rigid, Soft, Tenderness, Diminished Bowel Sounds, Hernia, Hyperactive Bowel Sounds, Hypoactive Bowel Sounds, Normal Bowel Sounds, Organomegaly, Pulsatile Mass, Rebound, Mass - Rectal Exam Rectal Exam: Deferred - Extremities Exam Extremities Exam: Normal Inspection - Back Exam Back Exam: NORMAL INSPECTION - Neurological Exam Neurological Exam: Alert, Awake, Oriented x3 - Skin Skin Exam: Dry, Intact, Normal Color, Warm Assessment and Plan - Assessment and Plan (Free Text) Assessment: Penicillins Allergy (Verified 11/25/17 22:29) RASH Urine Color Yellow (YELLOW) 04/08/18 05:55 Urine Appearance Cloudy (CLEAR) 04/08/18 05:55 Urine pH 6.5 (4.7-8.0) 04/08/18 05:55 Ur Specific [place] 1.020 (1.005-1.035) 04/08/18 05:55 Urine Protein 30 mg/dL (<30 mg/dL) H 04/08/18 05:55 Urine Glucose (UA) Negative mg/dL (NEGATIVE) 04/08/18 05:55 Urine Ketones Negative mg/dL (NEGATIVE) 04/08/18 05:55 Urine Blood Moderate (NEGATIVE) H 04/08/18 05:55 Urine Nitrate Positive (NEGATIVE) H 04/08/18 05:55 Urine Bilirubin Negative (NEGATIVE) 04/08/18 05:55 Urine Urobilinogen 1.0 E.U./dL (<1 E.U./dL) H 04/08/18 05:55 Ur Leukocyte Esterase Small [place]/uL (NEGATIVE) H 04/08/18 05:55 Urine RBC 0 - 2 /hpf (0-2) 04/08/18 05:55 Urine WBC 15 - 20 /hpf (0-6) H 04/08/18 05:55 Ur Epithelial Cells 0 - 2 /hpf (0-5) 04/08/18 05:55 Urine Bacteria Many /hpf (NONE) 04/08/18 05:55 Cardiology / EKG Studies 04/09/18 10:11 ELECTROCARDIOGRAM Urgent Comment: 12 lead EKG upon arrival in unit Reason For Exam: post ptca 04/10/18 10:15 ELECTROCARDIOGRAM DAILY Comment: Reason For Exam: chest pain Assessment: 67 year old female w. pmhx CAD, UTI w. ESBL, Htn, IDDM admitted with left sided chest pain for further eval and treatment. Plan: 1. Chest pain- non ischemic, s/p cardiac catheterization today revealed non-obstructive disease. continue Aspirin, Plavix, antihypertensives as per cardiology 2. UTI- in setting of hx ESBL Urine UA+ WBC, 15-20, mod blood, urine culture result pending. -REnal ultrasound pending. Anitibx as per I.D., patient allergic to PCNs. Will continue to follow closely and monitor clinical status.
--- NOTE | 2018-04-09 17:59 | US ---
Date of service: 04/09/2018 PROCEDURE: Ultrasound of the Kidneys HISTORY: rule out hydronephrosis COMPARISON: None available. TECHNIQUE: Sonogram of the kidneys. FINDINGS: RIGHT KIDNEY: Measures: 4.1 x 9.6 cm. Normal in size, contour and echogenicity. No stone, solid mass lesion or hydronephrosis visualized. LEFT KIDNEY: Measures: 4.9 x 9.8 cm. Normal in size, contour and echogenicity. No stone, solid mass lesion or hydronephrosis visualized. OTHER FINDINGS: None. IMPRESSION: Unremarkable renal sonogram.
[2018-04-09] MEDS: Insulin Detemir 100 units/ml Vial (Levemir) SC SCH (22:34)
[2018-04-10] MEDS: Pantoprazole 40 mg EC Tab PO SCH (06:45)
[2018-04-10 07:26] LABS: BASO # 0.03 K/mm3 (0.0-2.0); BASO % 0.4 % (0.0-3.0); EOS # 0.2 (0.0-0.7); EOS % 2.9 % (1.5-5.0); HEMOGLOBIN 12.3 g/dL (12.0-16.0); LYMPH # 1.8 (1.2-3.4); LYMPH % 26.1 % (22.0-35.0); MEAN CELL VOLUME 90.6 fl (80.0-105.0); MEAN CORPUSCULAR HEMOGLOBIN 29.7 pg (25.0-35.0); MEAN CORPUSCULAR HGB CONC 32.8 g/dl (31.0-37.0); MEAN PLATELET VOLUME 9.8 fl (7.0-11.0); MONO # 0.3 (0.1-0.6); MONO % 4.7 % (1.0-6.0); RBC 4.14 10^6/uL (3.5-6.1); RED CELL DISTRIBUTION WIDTH 15.4 % (11.5-14.5); WHITE BLOOD COUNT 6.9 10^3/uL (4.5-11.0)
[2018-04-10] MEDS: Levothyroxine 50 MCG TAB PO SCH (07:38)
[2018-04-10] MEDS: Insulin Reg-HIGH-Coverage SC SCH ×4 (07:38→22:27)
[2018-04-10 09:21] LABS: ALB/GLOB RATIO 1.3 (1.1-1.8); ALBUMIN 3.7 g/dL (3.0-4.8); CALCIUM 9.5 mg/dL (8.4-10.5)
[2018-04-10] MEDS: Aztreonam 1 Gm in NS 100mL 100 ML IVPB SCH ×2 (09:26→22:34)
[2018-04-10] MEDS: Venlafaxine 75 mg ER Cap PO SCH (09:27)
--- NOTE | 2018-04-10 11:17 | CARD ---
APPROVED REPORT Date of service: 04/10/2018 EKG Measurement Heart [id number] <Conclusion> Normal sinus rhythm Normal ECG
--- NOTE | 2018-04-10 12:22 | PN ---
DATE: 04/10/2018 CARDIOLOGY FOLLOWUP SUBJECTIVE: The patient is chest pain free. PHYSICAL EXAMINATION: VITAL SIGNS: Blood pressure 132/75 and heart rates in the 90s. NECK: Negative JVD. LUNGS: Without rales. HEART: Reveal S1 and S2. EXTREMITIES: Without edema. LABORATORY DATA: Hemoglobin is 12.3. Chemistries, BUN and creatinine are unremarkable. Glucose is 236. IMPRESSION: 1. Stable post cardiac catheterization. 2. Diabetes mellitus. 3. History of patent stents noted on catheterization. 4. Normal left ventricular function. 5. Resolution of chest pain. Given these findings, the patient is stable from a cardiac perspective. We will ambulate the patient from a cardiac perspective. The patient can be discharged. Zachary Giles MD
--- NOTE | 2018-04-10 15:23 | CP.PCM.PN ---
<Yaw Sadler - Last Filed: 04/10/18 15:20> Subjective - Date & Time of Evaluation Date of Evaluation: 04/10/18 Time of Evaluation: 15:20 - Subjective Subjective: INTERNAL MEDICINE PROGRESS NOTE FOR DR. ANASTACIO Sadler PGY1 Intepretor ID: [id number] Pt seen and examined at bedside this am. No acute nursing events overnight. Pt denies any complaints. Tolerating diet. Denies 12 point ROS Objective - Vital Signs/Intake and Output Vital Signs (last 24 hours): Temp Pulse Resp BP Pulse Ox 98.5 F 79 18 112/48 L 96 04/10/18 14:00 04/10/18 14:00 04/10/18 14:00 04/10/18 14:00 04/10/18 14:00 Intake and Output: 04/10/18 04/10/18 06:59 18:59 Intake Total 480 Balance 480 - Medications Medications: Current Medications Albuterol/Ipratropium (Duoneb 3 Mg/0.5 Mg (3 Ml) Ud) 3 ml IH Q2H PRN PRN Reason: Shortness of Breath Amlodipine Besylate (Norvasc) 10 mg PO HS [facility] Last Admin: 04/09/18 22:22 Dose: Not Given Aspirin (Ecotrin) 81 mg PO DAILY [facility] Last Admin: 04/10/18 09:27 Dose: 81 mg Atorvastatin Calcium (Lipitor) 80 mg PO DIN [facility] Last Admin: 04/09/18 16:55 Dose: 80 mg Clopidogrel Bisulfate (Plavix) 75 mg PO QAM [facility] Last Admin: 04/10/18 09:26 Dose: 75 mg Furosemide (Lasix) 20 mg PO HS [facility] Last Admin: 04/09/18 22:21 Dose: Not Given Hydrochlorothiazide (Microzide) 12.5 mg PO DAILY [facility] Last Admin: 04/10/18 09:26 Dose: 12.5 mg Aztreonam (Azactam 1 Gm) 100 mls @ 100 mls/hr IVPB Q12 [facility]; Protocol Stop: 04/15/18 22:01 Last Admin: 04/10/18 09:26 Dose: 100 mls/hr Insulin Detemir (Levemir) 5 unit SC [facility] Last Admin: 04/09/18 22:34 Dose: 5 units Insulin Human Regular (Humulin R High) [address] [facility]; Protocol Last Admin: 04/10/18 11:29 Dose: 7 units Isosorbide Mononitrate (Imdur) 60 mg PO DAILY [facility] Last Admin: 04/10/18 09:27 Dose: 60 mg Levothyroxine Sodium (Synthroid) 50 mcg PO ACB [facility] Last Admin: 04/10/18 07:38 Dose: 50 mcg Losartan Potassium (Cozaar) 100 mg PO DAILY [facility] Last Admin: 04/10/18 09:27 Dose: 100 mg Pantoprazole Sodium (Protonix Ec Tab) 40 mg PO 0600 [facility] Last Admin: 04/10/18 06:45 Dose: 40 mg Venlafaxine HCl (Effexor Xr) 75 mg PO DAILY [facility] Last Admin: 04/10/18 09:27 Dose: 75 mg - Labs Labs: 04/10/18 07:00 04/10/18 07:00 PT 11.6 SECONDS (9.4-12.5) 04/07/18 11:59 INR 1.03 04/07/18 11:59 APTT 41.4 Seconds (26.9-38.3) H 04/07/18 11:59 - Constitutional Appears: Well, Non-toxic, No Acute Distress - Head Exam Head Exam: NORMAL INSPECTION, NORMOCEPHALIC - Eye Exam Eye Exam: EOMI, Normal appearance - ENT Exam ENT Exam: Mucous Membranes Moist, Normal Exam - Neck Exam Neck Exam: Normal Inspection - Respiratory Exam Respiratory Exam: Clear to Ausculation Bilateral, NORMAL BREATHING PATTERN - Cardiovascular Exam Cardiovascular Exam: REGULAR RHYTHM, +S1, +S2 - GI/Abdominal Exam GI & Abdominal Exam: Soft, Normal Bowel Sounds. absent: Tenderness - Extremities Exam Extremities Exam: Normal Inspection. absent: Calf Tenderness - Back Exam Back Exam: NORMAL INSPECTION - Neurological Exam Neurological Exam: Alert, Awake, Oriented x3 - Psychiatric Exam Psychiatric exam: Normal Affect, Normal Mood - Skin Skin Exam: Dry, Intact, Warm Assessment and Plan - Assessment and Plan (Free Text) Assessment: 67 y/o F with PMHx of CAD s/p stent, IDDM2, HTN, Hypothyroidism, depression presented to ED with complaints of chest pain Plan: Chest Pain pt s/p cardiac cath. 50-60% stenosis in the proximal LAD. No intervention was performed as FFR in that region was 0.96 CTA negative for PE Continue aspirin, plavix, imdur UTI Pt penicillin allergic, hx of ESBL e.coli continue azactam per ID recs f/u cultures renal u/s is unremarkable H&H wnl PAGE likely 2/2 lasix IDDM2 A1C 8.9 ISS HTN continue amlodipine, cozaar, HCTZ, lasix Hypothyroidism tsh wnl continue synthroid Depression continue venlafaxine GI/DVT Ppx: PTX/SCD Dispo: pending blood cultures. Case seen, examined and discussed with attending physician, Dr. Anastacio Sadler PGY1 <Lynda Chaves R - Last Filed: 04/11/18 15:24> Objective - Vital Signs/Intake and Output Vital Signs (last 24 hours): Temp Pulse Resp BP Pulse Ox 98.3 F 86 18 94/57 L 96 04/11/18 14:40 04/11/18 14:40 04/11/18 14:40 04/11/18 14:40 04/11/18 14:40 Intake and Output: 04/11/18 04/11/18 06:59 18:59 Intake Total 960 Balance 960 - Medications Medications: Current Medications Albuterol/Ipratropium (Duoneb 3 Mg/0.5 Mg (3 Ml) Ud) 3 ml IH Q2H PRN PRN Reason: Shortness of Breath Amlodipine Besylate (Norvasc) 10 mg PO HS [facility] Last Admin: 04/10/18 22:33 Dose: 10 mg Aspirin (Ecotrin) 81 mg PO DAILY [facility] Last Admin: 04/11/18 09:23 Dose: 81 mg Atorvastatin Calcium (Lipitor) 80 mg PO DIN [facility] Last Admin: 04/10/18 16:27 Dose: 80 mg Clopidogrel Bisulfate (Plavix) 75 mg PO QAM [facility] Last Admin: 04/11/18 09:23 Dose: 75 mg Enoxaparin Sodium (Lovenox) 40 mg SC DAILY [facility]; Protocol Last Admin: 04/11/18 09:25 Dose: 40 mg Furosemide (Lasix) 20 mg PO HS [facility] Last Admin: 04/10/18 22:33 Dose: 20 mg Hydrochlorothiazide (Microzide) 12.5 mg PO DAILY [facility] Last Admin: 04/11/18 09:24 Dose: 12.5 mg Aztreonam (Azactam 1 Gm) 100 mls @ 100 mls/hr IVPB Q12 [facility]; Protocol Stop: 04/15/18 22:01 Last Admin: 04/11/18 09:25 Dose: 100 mls/hr Insulin Detemir (Levemir) 5 unit SC HS [facility] Last Admin: 04/10/18 22:40 Dose: 5 units Insulin Human Regular (Humulin R High) 0 units SC ACHS [facility]; Protocol Last Admin: 04/11/18 13:12 Dose: 10 units Isosorbide Mononitrate (Imdur) 60 mg PO DAILY [facility] Last Admin: 04/11/18 09:25 Dose: 60 mg Levothyroxine Sodium (Synthroid) 50 mcg PO ACB [facility] Last Admin: 04/11/18 09:23 Dose: 50 mcg Losartan Potassium (Cozaar) 100 mg PO DAILY [facility] Last Admin: 04/11/18 09:24 Dose: 100 mg Pantoprazole Sodium (Protonix Ec Tab) 40 mg PO 0600 [facility] Last Admin: 04/11/18 05:44 Dose: 40 mg Venlafaxine HCl (Effexor Xr) 75 mg PO DAILY [facility] Last Admin: 04/11/18 09:23 Dose: 75 mg - Labs Labs: 04/11/18 06:45 04/11/18 06:45 PT 11.6 SECONDS (9.4-12.5) 04/07/18 11:59 INR 1.03 04/07/18 11:59 APTT 41.4 Seconds (26.9-38.3) H 04/07/18 11:59 Attending/Attestation - Attestation I have personally seen and examined this patient.: Yes I have fully participated in the care of the patient.: Yes I have reviewed all pertinent clinical information, including history, physical exam and plan: Yes Notes (Text): Patient seen and examined by me with resident at 10AM on 04/10/18. Case including HPI, physical exam, and assessment and plan discussed with resident. Agree with above with following additions/corrections. Patient is a 67-year-old female with past medical history significant for coronary artery disease status post stent placement, insulin-dependent type 2 diabetes, hypertension, hypothyroidism, and depression that presented to the emergency room with chest pain. 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 Patient states she is feeling ok. Patient denied any chest pain today. No shortness of breath. Patient states she does not feel dizzy today. No palpitations. No nausea, vomiting, or abdominal pain. No dysuria or burning with urination. Physical exam: General: Awake and alert sitting up in bed in no acute distress HEENT: Normocephalic, atraumatic. Extraocular muscles intact, pupils equal and reactive, no scleral icterus. Oropharynx is pink and moist. No pharyngeal erythema or exudate apreciated. Neck is supple. Cardiovascular: Regular rhythm. Normal S1 and S2. No murmurs, rubs, or gallops appreciated Pulmonary: Normal respiratory effort. No rhonchi, rales, or wheezing appreciated. Gastrointestinal: Soft, nondistended. Nontender. Positive bowel sounds all 4 quadrants. No guarding. Musculoskeletal: Moves all extremities. No calf tenderness. No edema. No anterior chest wall tenderness. Central nervous system: AAOx3, CN 2-12 grossly intact. Dermatologic: Skin warm and dry. Right groin cardiac cath site is clean, dry, and intact. Assessment and plan: Patient is a 67-year-old female with past medical history significant for coronary artery disease status post stent placement, insulin-dependent type 2 diabetes, hypertension, hypothyroidism, and depression that presented to the emergency room with chest pain. 1. Chest pain in a patient with history of CAD. Pain resolved. Patient s/p cardi ac cath. Cardiology following, recommendations appreciated. Continue aspirin, Lipitor, Plavix, Imdur, and Cozaar. Cardiac cath per sales account associate showed patent stents in the mid LAD as well as in the proximal RCA, borderline 50-60% stenosis in the proximal LAD, LV function normal with an EF of 60%. Continue medication management and cardiac risk reduction.Troponins within normal limits. TSH within normal limits. HgbA1c 8.9. Lipid panel with elevated triglycerides. 2. UTI. Pending urine culture. ID following, recommendations appreciated. Continue Azactam. History of ESBL. 3. PAGE. Improved. Continue to monitor. Renal ultrasound per radiologist showed unremarkable renal sonogram. 4. Insulin-dependent type 2 diabetes with hyperglycemia. Continue insulin sliding scale. Continue Levemir 5 units at bedtime. Continue to monitor accuchecks. HgbA1C 8.9. Patient is only on metformin once day, will increase to twice a day on discharge. 5. Hypertension. Continue home Lasix, hydrochlorothiazide, Cozaar, Norvasc, and Imdur 6. Hypothyroidism. Continue Synthroid. TSH within normal limits. 7. Depression. Continue home Effexor. 8. Chronic hematuria. Patient to continue to follow with her PMD as and outpatient. H&H within normal limits here. 9. GI/DVT prophylaxis. Protonix/Lovenox 10. Patient is a full code. Case was discussed in detail with the patient regarding current diagnosis and treatment plan. All questions answered.
[2018-04-10] MEDS ORDERED: Vancomycin 1gm in NS 250ml 1 GM/250 ML BAG IVPB STA (16:14)
--- NOTE | 2018-04-10 16:16 | CP.PCM.PN ---
Subjective - Date & Time of Evaluation Date of Evaluation: 04/10/18 Time of Evaluation: 14:05 - Subjective Subjective: No fevers, not in distress. Objective - Vital Signs/Intake and Output Vital Signs (last 24 hours): Temp Pulse Resp BP Pulse Ox 97.4 F L 87 18 118/65 97 04/09/18 12:00 04/09/18 12:00 04/09/18 12:00 04/09/18 12:00 04/09/18 06:00 Intake and Output: 04/09/18 04/09/18 06:59 18:59 Intake Total 1320 Output Total 1250 Balance 70 - Medications Medications: Current Medications Albuterol/Ipratropium (Duoneb 3 Mg/0.5 Mg (3 Ml) Ud) 3 ml IH Q2H PRN PRN Reason: Shortness of Breath Amlodipine Besylate (Norvasc) 10 mg PO HS [facility] Last Admin: 04/08/18 21:11 Dose: 10 mg Aspirin (Ecotrin) 81 mg PO DAILY [facility] Last Admin: 04/09/18 12:04 Dose: Not Given Atorvastatin Calcium (Lipitor) 80 mg PO DIN [facility] Last Admin: 04/08/18 18:01 Dose: 80 mg Clopidogrel Bisulfate (Plavix) 75 mg PO QAM [facility] Last Admin: 04/09/18 12:04 Dose: Not Given Furosemide (Lasix) 20 mg PO HS [facility] Last Admin: 04/08/18 21:11 Dose: 20 mg Hydrochlorothiazide (Microzide) 12.5 mg PO DAILY [facility] Last Admin: 04/09/18 12:04 Dose: 12.5 mg Aztreonam (Azactam 1 Gm) 100 mls @ 100 mls/hr IVPB Q12 [facility]; Protocol Stop: 04/15/18 22:01 Last Admin: 04/09/18 12:03 Dose: 100 mls/hr Sodium Chloride (Sodium Chloride 0.9%) 1,000 mls @ 100 mls/hr IV .Q10H [facility] Stop: 04/09/18 16:00 Last Admin: 04/09/18 12:06 Dose: 100 mls/hr Insulin Human Regular (Humulin R High) 0 units SC ACHS [facility]; Protocol Last Admin: 04/09/18 12:13 Dose: Not Given Isosorbide Mononitrate (Imdur) 60 mg PO DAILY [facility] Last Admin: 04/09/18 12:04 Dose: 60 mg Levothyroxine Sodium (Synthroid) 50 mcg PO ACB [facility] Last Admin: 04/09/18 12:04 Dose: 50 mcg Losartan Potassium (Cozaar) 100 mg PO DAILY [facility] Last Admin: 04/09/18 12:06 Dose: 100 mg Pantoprazole Sodium (Protonix Ec Tab) 40 mg PO 0600 [facility] Last Admin: 04/09/18 05:23 Dose: 40 mg Venlafaxine HCl (Effexor Xr) 75 mg PO DAILY [facility] Last Admin: 04/09/18 12:04 Dose: 75 mg - Labs Labs: 04/09/18 06:00 04/09/18 06:00 PT 11.6 SECONDS (9.4-12.5) 04/07/18 11:59 INR 1.03 04/07/18 11:59 APTT 41.4 Seconds (26.9-38.3) H 04/07/18 11:59 - Constitutional Appears: Chronically Ill - Head Exam Head Exam: NORMAL INSPECTION - Respiratory Exam Respiratory Exam: Decreased Breath Sounds - Cardiovascular Exam Cardiovascular Exam: +S1, +S2 - GI/Abdominal Exam GI & Abdominal Exam: Soft. absent: Tenderness Assessment and Plan - Assessment and Plan (Free Text) Plan: Assessment consider urinary tract infection CAD S/P PCI DM HTN S/P cholecystectomy Plan continue Azactam day 3 and give a dose of IV Vancomycin pending blood and urine cx reviewed renal ultrasound which is unremarkable will continue monitor clinically discussed with Dr. Jerrod Chaves
[2018-04-10] MEDS: Insulin Detemir 100 units/ml Vial (Levemir) SC SCH (22:40)
[2018-04-11] MEDS: Pantoprazole 40 mg EC Tab PO SCH (05:44)
[2018-04-11 07:49] LABS: BASO # 0.02 K/mm3 (0.0-2.0); BASO % 0.3 % (0.0-3.0); EOS # 0.2 (0.0-0.7); EOS % 3.9 % (1.5-5.0); HEMOGLOBIN 12.2 g/dL (12.0-16.0); LYMPH # 1.4 (1.2-3.4); LYMPH % 23.6 % (22.0-35.0); MEAN CELL VOLUME 90.2 fl (80.0-105.0); MEAN CORPUSCULAR HGB CONC 33.2 g/dl (31.0-37.0); MEAN PLATELET VOLUME 9.6 fl (7.0-11.0); MONO # 0.3 (0.1-0.6); MONO % 4.7 % (1.0-6.0); RBC 4.07 10^6/uL (3.5-6.1); RED CELL DISTRIBUTION WIDTH 15.3 % (11.5-14.5); WHITE BLOOD COUNT 5.9 10^3/uL (4.5-11.0)
[2018-04-11 08:11] LABS: ALB/GLOB RATIO 1.3 (1.1-1.8); ALBUMIN 3.8 g/dL (3.0-4.8); CALCIUM 9.5 mg/dL (8.4-10.5)
[2018-04-11] MEDS: Insulin Reg-HIGH-Coverage SC SCH ×2 (09:03→13:12)
[2018-04-11] MEDS: Levothyroxine 50 MCG TAB PO SCH (09:23)
[2018-04-11] MEDS: Venlafaxine 75 mg ER Cap PO SCH (09:23)
[2018-04-11] MEDS: Aztreonam 1 Gm in NS 100mL 100 ML IVPB SCH (09:25)
[2018-04-11] MEDS ORDERED: Enoxaparin 40 mg Syringe SC SCH (10:00)
[2018-04-11 14:40] VITALS: BP 94/57; PULSE 86; RESP 18; TEMP 98.3; O2SAT 96
--- NOTE | 2018-04-11 17:29 | CP.PCM.DIS ---
<Jimmie Merrill - Last Filed: 04/15/18 18:08> Provider - Provider Date of Admission: 04/09/18 13:24 Attending physician: Lynda Chaves DO Consults: 04/07/18 16:09 Cardiology Consult Routine Comment: Consulting Provider: Zachary Giles Consulting Physician: Zachary Giles Reason for Consult: Chest pain, stents in the past 04/08/18 10:21 Infectious Disease Consult Routine Comment: Consulting Provider: Doron Johnson Consulting Physician: Doron Johnson Reason for Consult: UTI, pen-allergic, Hx ESBL Ecoli Apr 2017 Time Spent in preparation of Discharge (in minutes): 35 Hospital Course - Lab Results Lab Results: Micro Results 04/09/18 16:20 Urine,Clean Catch Urine Culture - Final 10-50,000 CFU/ML. MULTIPLE SPECIES. PROBABLE CONTAMINATION. Most Recent Lab Values WBC 5.9 10^3/uL (4.5-11.0) 04/11/18 06:45 RBC 4.07 10^6/uL (3.5-6.1) 04/11/18 06:45 Hgb 12.2 g/dL (12.0-16.0) 04/11/18 06:45 Hct 36.7 % (36.0-48.0) 04/11/18 06:45 MCV 90.2 fl (80.0-105.0) 04/11/18 06:45 MCH 30.0 pg (25.0-35.0) 04/11/18 06:45 MCHC 33.2 g/dl (31.0-37.0) 04/11/18 06:45 RDW 15.3 % (11.5-14.5) H 04/11/18 06:45 Plt Count 195 10^3/uL (120.0-450.0) 04/11/18 06:45 MPV 9.6 fl (7.0-11.0) 04/11/18 06:45 Neut % (Auto) 67.5 % (50.0-68.0) 04/11/18 06:45 Lymph % (Auto) 23.6 % (22.0-35.0) 04/11/18 06:45 Terrell % (Auto) 4.7 % (1.0-6.0) 04/11/18 06:45 Eos % (Auto) 3.9 % (1.5-5.0) 04/11/18 06:45 Baso % (Auto) 0.3 % (0.0-3.0) 04/11/18 06:45 Lymph # (Auto) 1.4 (1.2-3.4) 04/11/18 06:45 Terrell # (Auto) 0.3 (0.1-0.6) 04/11/18 06:45 Eos # (Auto) 0.2 (0.0-0.7) 04/11/18 06:45 Baso # (Auto) 0.02 K/mm3 (0.0-2.0) 04/11/18 06:45 Absolute Neuts (auto) 4.01 (1.4-6.5) 04/11/18 06:45 PT 11.6 SECONDS (9.4-12.5) 04/07/18 11:59 INR 1.03 04/07/18 11:59 APTT 41.4 Seconds (26.9-38.3) H 04/07/18 11:59 Sodium 139 mmol/L (132-148) 04/11/18 06:45 Potassium 4.0 mmol/L (3.6-5.0) 04/11/18 06:45 Chloride 101 mmol/L (98-107) 04/11/18 06:45 Carbon Dioxide 31 mmol/L (21-33) 04/11/18 06:45 Anion Gap 11 (10-20) 04/11/18 06:45 BUN 23 mg/dL (7-21) H 04/11/18 06:45 Creatinine 1.2 mg/dl (0.7-1.2) 04/11/18 06:45 Est GFR ( Amer) 54 04/11/18 06:45 Est GFR (Non-Af Amer) 45 04/11/18 06:45 POC Glucose (mg/dL) 340 mg/dL (65-110) H 04/11/18 10:50 Random Glucose 247 mg/dL (70-110) H 04/11/18 06:45 Hemoglobin A1c 8.9 % (4.2-6.5) H 04/08/18 07:00 Calcium 9.5 mg/dL (8.4-10.5) 04/11/18 06:45 Phosphorus 3.3 mg/dL (2.5-4.5) 04/11/18 06:45 Magnesium 1.9 mg/dL (1.7-2.2) 04/11/18 06:45 Total Bilirubin 0.7 mg/dL (0.2-1.3) 04/11/18 06:45 AST 14 U/L (14-36) D 04/11/18 06:45 ALT 26 U/L (7-56) 04/11/18 06:45 Alkaline Phosphatase 108 U/L (38-126) 04/11/18 06:45 Troponin I 0.01 ng/mL D 04/08/18 07:00 Total Protein 6.8 g/dL (5.8-8.3) 04/11/18 06:45 Albumin 3.8 g/dL (3.0-4.8) 04/11/18 06:45 Globulin 3.0 gm/dL 04/11/18 06:45 Albumin/Globulin Ratio 1.3 (1.1-1.8) 04/11/18 06:45 Triglycerides 298 mg/dL (35-160) H 04/08/18 07:00 Cholesterol 141 mg/dL (130-200) 04/08/18 07:00 LDL Cholesterol Direct 67 mg/dL (0-129) 04/08/18 07:00 HDL Cholesterol 26 mg/dL (29-60) L 04/08/18 07:00 TSH 3rd Generation 1.50 mIU/mL (0.46-4.68) 04/08/18 07:00 Urine Color Yellow (YELLOW) 04/08/18 05:55 Urine Appearance Cloudy (CLEAR) 04/08/18 05:55 Urine pH 6.5 (4.7-8.0) 04/08/18 05:55 Ur Specific [place] 1.020 (1.005-1.035) 04/08/18 05:55 Urine Protein 30 mg/dL (<30 mg/dL) H 04/08/18 05:55 Urine Glucose (UA) Negative mg/dL (NEGATIVE) 04/08/18 05:55 Urine Ketones Negative mg/dL (NEGATIVE) 04/08/18 05:55 Urine Blood Moderate (NEGATIVE) H 04/08/18 05:55 Urine Nitrate Positive (NEGATIVE) H 04/08/18 05:55 Urine Bilirubin Negative (NEGATIVE) 04/08/18 05:55 Urine Urobilinogen 1.0 E.U./dL (<1 E.U./dL) H 04/08/18 05:55 Ur Leukocyte Esterase Small Darvin/uL (NEGATIVE) H 04/08/18 05:55 Urine RBC 0 - 2 /hpf (0-2) 04/08/18 05:55 Urine WBC 15 - 20 /hpf (0-6) H 04/08/18 05:55 Ur Epithelial Cells 0 - 2 /hpf (0-5) 04/08/18 05:55 Urine Bacteria Many /hpf (NONE) 04/08/18 05:55 - Hospital Course Hospital Course: 67 American speaking F with pertinent medical hx of CAD s/p stent placement in 04/2017, IDDM 2, and HTN presents with recent onset, constant, left sided, non-radiating, chest pain of squeezing quality with associated symptoms of SOB that was alleviated with nitrates. Patient was ruled out for ACS by tropes, but patient's ASCVD score was high enough that it warranted cardiac catheterization. Dr. Giles was called for consult, who took patient for cardiac catheterization, which revealed patent stents in proximal RCA and mid LAD. Patient was advised to continue with plavix and aspirin as well as a nitrate, cozaar, crestor, and norvasc. Patient incidentally found to have hematuria, was advised to follow up outpatient. Patient had a contaminated urine culture, but UA showed acute UTI (patient without symptoms). She was given a script for macrobid for 5 days and was deemed medically optimized for discharge. Patient agreed to plan on day of discharge. Discharge Exam - Head Exam Head Exam: NORMAL INSPECTION - Eye Exam Eye Exam: EOMI, Normal appearance, PERRL Pupil Exam: NORMAL ACCOMODATION, PERRL - Respiratory Exam Respiratory Exam: Clear to PA & Lateral, NORMAL BREATHING PATTERN, UNREMARKABLE - Cardiovascular Exam Cardiovascular Exam: REGULAR RHYTHM - GI/Abdominal Exam GI & Abdominal Exam: Normal Bowel Sounds - Neurological Exam Neurological exam: Alert, CN II-XII Intact, Normal Gait, Oriented x3, Reflexes Normal - Psychiatric Exam Psychiatric exam: Normal Affect, Normal Mood - Skin Skin Exam: Dry, Intact, Normal Color, Warm Discharge Plan - Discharge Medications Prescriptions: RX: amLODIPine [Norvasc] 10 mg PO HS #14 tab RX: Aspirin [Ecotrin] 81 mg PO DAILY #14 tabec RX: Clopidogrel [Plavix] 75 mg PO QAM #14 tab RX: Furosemide [Lasix] 20 mg PO HS #14 tablet RX: hydroCHLOROthiazide [Microzide] 12.5 mg PO DAILY #14 cap RX: Isosorbide Mononitrate ER [Imdur ER] 30 mg PO DAILY #14 tab RX: Levothyroxine Sodium [Levoxyl] 50 mcg PO DAILY #14 tablet RX: Losartan [Cozaar] 100 mg PO DAILY #14 tab RX: MetFORMIN [glucoPHAGE] 1,000 mg PO BID #28 tab RX: Rosuvastatin Calcium [Crestor] 20 mg PO DAILY #14 tab RX: Venlafaxine [Effexor XR] 75 mg PO DAILY #14 cer - Follow Up Plan Condition: STABLE Disposition: HOME/ ROUTINE Instructions: Angina (DC), Flu Vaccine Additional Instructions: Please follow up with your primary care doctor, Dr. Carrillo, within 3-5 days of discharge Please follow up with your agricultural equipment sales engineer (heart doctor), Dr. Giles, within 3-5 days of discharge Please resume the medications that you were taking previously Please discuss all your medications with your primary care doctor It is important that you take your aspirin 81mg daily and plavix 75mg daily EVERY DAY to prevent another heart attack. We have increased your metformin (medication for diabetes) to 1000mg two times a day as your blood sugars have been elevated. Please make sure to let your primary care doctor know of the changes. You have been given a new prescription for the metformin. Please do not take this medication if you are skipping meals. If your symptoms return, or you experience new symptoms, please return to the nearest emergency room Referrals: Ridge Carrillo MD, PhD [Family Provider] - Zachary Giles MD [Staff Provider] - <Lynda Chaves - Last Filed: 04/15/18 20:36> Provider - Provider Date of Admission: 04/09/18 13:24 Attending physician: Lynda Chaves DO Consults: 04/07/18 16:09 Cardiology Consult Routine Comment: Consulting Provider: Zachary Giles Consulting Physician: Zachary Giles Reason for Consult: Chest pain, stents in the past 04/08/18 10:21 Infectious Disease Consult Routine Comment: Consulting Provider: Doron Johnson Consulting Physician: Doron Johnson Reason for Consult: UTI, pen-allergic, Hx ESBL Ecoli Apr 2017 Hospital Course - Lab Results Lab Results: Micro Results 04/09/18 16:20 Urine,Clean Catch Urine Culture - Final 10-50,000 CFU/ML. MULTIPLE SPECIES. PROBABLE CONTAMINATION. Most Recent Lab Values WBC 5.9 10^3/uL (4.5-11.0) 04/11/18 06:45 RBC 4.07 10^6/uL (3.5-6.1) 04/11/18 06:45 Hgb 12.2 g/dL (12.0-16.0) 04/11/18 06:45 Hct 36.7 % (36.0-48.0) 04/11/18 06:45 MCV 90.2 fl (80.0-105.0) 04/11/18 06:45 MCH 30.0 pg (25.0-35.0) 04/11/18 06:45 MCHC 33.2 g/dl (31.0-37.0) 04/11/18 06:45 RDW 15.3 % (11.5-14.5) H 04/11/18 06:45 Plt Count 195 10^3/uL (120.0-450.0) 04/11/18 06:45 MPV 9.6 fl (7.0-11.0) 04/11/18 06:45 Neut % (Auto) 67.5 % (50.0-68.0) 04/11/18 06:45 Lymph % (Auto) 23.6 % (22.0-35.0) 04/11/18 06:45 Terrell % (Auto) 4.7 % (1.0-6.0) 04/11/18 06:45 Eos % (Auto) 3.9 % (1.5-5.0) 04/11/18 06:45 Baso % (Auto) 0.3 % (0.0-3.0) 04/11/18 06:45 Lymph # (Auto) 1.4 (1.2-3.4) 04/11/18 06:45 Terrell # (Auto) 0.3 (0.1-0.6) 04/11/18 06:45 Eos # (Auto) 0.2 (0.0-0.7) 04/11/18 06:45 Baso # (Auto) 0.02 K/mm3 (0.0-2.0) 04/11/18 06:45 Absolute Neuts (auto) 4.01 (1.4-6.5) 04/11/18 06:45 PT 11.6 SECONDS (9.4-12.5) 04/07/18 11:59 INR 1.03 04/07/18 11:59 APTT 41.4 Seconds (26.9-38.3) H 04/07/18 11:59 Sodium 139 mmol/L (132-148) 04/11/18 06:45 Potassium 4.0 mmol/L (3.6-5.0) 04/11/18 06:45 Chloride 101 mmol/L (98-107) 04/11/18 06:45 Carbon Dioxide 31 mmol/L (21-33) 04/11/18 06:45 Anion Gap 11 (10-20) 04/11/18 06:45 BUN 23 mg/dL (7-21) H 04/11/18 06:45 Creatinine 1.2 mg/dl (0.7-1.2) 04/11/18 06:45 Est GFR ( Amer) 54 04/11/18 06:45 Est GFR (Non-Af Amer) 45 04/11/18 06:45 POC Glucose (mg/dL) 340 mg/dL (65-110) H 04/11/18 10:50 Random Glucose 247 mg/dL (70-110) H 04/11/18 06:45 Hemoglobin A1c 8.9 % (4.2-6.5) H 04/08/18 07:00 Calcium 9.5 mg/dL (8.4-10.5) 04/11/18 06:45 Phosphorus 3.3 mg/dL (2.5-4.5) 04/11/18 06:45 Magnesium 1.9 mg/dL (1.7-2.2) 04/11/18 06:45 Total Bilirubin 0.7 mg/dL (0.2-1.3) 04/11/18 06:45 AST 14 U/L (14-36) D 04/11/18 06:45 ALT 26 U/L (7-56) 04/11/18 06:45 Alkaline Phosphatase 108 U/L (38-126) 04/11/18 06:45 Troponin I 0.01 ng/mL D 04/08/18 07:00 Total Protein 6.8 g/dL (5.8-8.3) 04/11/18 06:45 Albumin 3.8 g/dL (3.0-4.8) 04/11/18 06:45 Globulin 3.0 gm/dL 04/11/18 06:45 Albumin/Globulin Ratio 1.3 (1.1-1.8) 04/11/18 06:45 Triglycerides 298 mg/dL (35-160) H 04/08/18 07:00 Cholesterol 141 mg/dL (130-200) 04/08/18 07:00 LDL Cholesterol Direct 67 mg/dL (0-129) 04/08/18 07:00 HDL Cholesterol 26 mg/dL (29-60) L 04/08/18 07:00 TSH 3rd Generation 1.50 mIU/mL (0.46-4.68) 04/08/18 07:00 Urine Color Yellow (YELLOW) 04/08/18 05:55 Urine Appearance Cloudy (CLEAR) 04/08/18 05:55 Urine pH 6.5 (4.7-8.0) 04/08/18 05:55 Ur Specific [place] 1.020 (1.005-1.035) 04/08/18 05:55 Urine Protein 30 mg/dL (<30 mg/dL) H 04/08/18 05:55 Urine Glucose (UA) Negative mg/dL (NEGATIVE) 04/08/18 05:55 Urine Ketones Negative mg/dL (NEGATIVE) 04/08/18 05:55 Urine Blood Moderate (NEGATIVE) H 04/08/18 05:55 Urine Nitrate Positive (NEGATIVE) H 04/08/18 05:55 Urine Bilirubin Negative (NEGATIVE) 04/08/18 05:55 Urine Urobilinogen 1.0 E.U./dL (<1 E.U./dL) H 04/08/18 05:55 Ur Leukocyte Esterase Small Darvin/uL (NEGATIVE) H 04/08/18 05:55 Urine RBC 0 - 2 /hpf (0-2) 04/08/18 05:55 Urine WBC 15 - 20 /hpf (0-6) H 04/08/18 05:55 Ur Epithelial Cells 0 - 2 /hpf (0-5) 04/08/18 05:55 Urine Bacteria Many /hpf (NONE) 04/08/18 05:55 Attending/Attestation - Attestation I have personally seen and examined this patient.: Yes I have fully participated in the care of the patient.: Yes I have reviewed all pertinent clinical information, including history, physical exam and plan: Yes Notes (Text): Please note this DC summary is for 04/11/18 Patient seen and examined by me with resident 10:15AM and prior to discharge on . Case including discharge plan discussed with resident. Agree with above with following additions/corrections. Patient is a 67-year-old female with past medical history significant for coronary artery disease status post stent placement, insulin-dependent type 2 diabetes, hypertension, hypothyroidism, and depression that presented to the emergency room with chest pain. Please see H&P for full details. Patient was admitted with chest pain, CAD, PAGE, insulin dependent DM2, HTN, hypothyroidism, depression, and chronic hematuria. Padder was consulted. Troponins were within normal limits. TSH was within normal limits. HgbA1c was 8.9. Lipid panel showed elevated triglycerides. Patient had cardiac catheterization done. Cardiac catheterization per agricultural equipment sales engineer showed patent stents in the mid LAD as well as in the proximal RCA, borderline 50-60% stenosis in the proximal LAD, LV function normal with an EF of 60%. Patient was treated with ASA, Lipitor, Plavix, Imdur. And Cozaar. Patient was also treated for UTI with Azactam. ID was following. PAGE improved. Renal ultrasound per radiologist showed unremarkable renal sonogram. Patient did have hyperglycemia and was treated with insulin sliding scale and Levemir. Patients home metformin was increased from once a day to twice a day upon discharge. Patient was advised to continue follow up with her primary care doctor and digital cartographic technician for chronic hematuria. H&H remained stable. Patient had no leukocytosis and was afebrile. Urine culture was contaminated. Per ID, patient to complete Macrobid as an outpatient as per Dr. Johnson. Patient was given a prescription. Patients symptoms resolved. Patient was ambulating well. No dizziness, chest pain, or shortness of breath. Patient was cleared for discharge by all consultants. Patient was discharged home. On the day of discharge, [employer] cardio tech was used for translation. Patient stated she was feeling much better. Chest pain resolved. Patient denied shortness of breath. No dizziness. Patient denied any nausea or vomiting. No abdominal pain. No dysuria or burning with urination. No headaches or lightheadedness. No fevers or chills. Physical exam: General: Awake and alert sitting up in bed in no acute distress HEENT: Normocephalic, atraumatic. Extraocular muscles intact, pupils equal and reactive, no scleral icterus. Oropharynx is pink and moist. No pharyngeal erythema or exudate appreciated. Neck is supple. Cardiovascular: Regular rhythm. Normal S1 and S2. No murmurs, rubs, or gallops appreciated Pulmonary: Normal respiratory effort. No rhonchi, rales, or wheezing appreciated. Gastrointestinal: Soft, nondistended. Nontender. Positive bowel sounds all 4 quadrants. No guarding. Musculoskeletal: Moves all extremities. No calf tenderness. No edema. No anterior chest wall tenderness. Central nervous system: AAOx3, CN 2-12 grossly intact. Dermatologic: Skin warm and dry. Please see chart for full details. Follow up instructions: Patient to follow up primary care physician within 3-5 days. Patient to follow up with agricultural equipment sales engineer within 3-5 days. Patient to continue home medications. Patient given a new RX for metformin. Patient to complete antibiotics as prescribed. All instructions explained to the patient in detail with American cardio tech Taty # [id number]. Patient both understands and agrees t o all instructions. Written instructions also given. Time spent in discharging the patient including chart review, medication reconciliation, discussion with the patient, medical technologist hematology, consultants, and nursing staff was approximately 45 minutes.
--- NOTE | 2018-04-11 17:36 | CP.PCM.PN ---
Subjective - Date & Time of Evaluation Date of Evaluation: 04/11/18 Time of Evaluation: 09:45 - Subjective Subjective: Comfortable, no dysuria, no fevers, no flank pain. Objective - Vital Signs/Intake and Output Vital Signs (last 24 hours): Temp Pulse Resp BP Pulse Ox 98.5 F 79 18 112/48 L 96 04/10/18 14:00 04/10/18 14:00 04/10/18 14:00 04/10/18 14:00 04/10/18 14:00 Intake and Output: 04/10/18 04/10/18 06:59 18:59 Intake Total 480 Balance 480 - Medications Medications: Current Medications Albuterol/Ipratropium (Duoneb 3 Mg/0.5 Mg (3 Ml) Ud) 3 ml IH Q2H PRN PRN Reason: Shortness of Breath Amlodipine Besylate (Norvasc) 10 mg PO HS [facility] Last Admin: 04/09/18 22:22 Dose: Not Given Aspirin (Ecotrin) 81 mg PO DAILY [facility] Last Admin: 04/10/18 09:27 Dose: 81 mg Atorvastatin Calcium (Lipitor) 80 mg PO DIN [facility] Last Admin: 04/09/18 16:55 Dose: 80 mg Clopidogrel Bisulfate (Plavix) 75 mg PO QAM [facility] Last Admin: 04/10/18 09:26 Dose: 75 mg Furosemide (Lasix) 20 mg PO HS [facility] Last Admin: 04/09/18 22:21 Dose: Not Given Hydrochlorothiazide (Microzide) 12.5 mg PO DAILY [facility] Last Admin: 04/10/18 09:26 Dose: 12.5 mg Aztreonam (Azactam 1 Gm) 100 mls @ 100 mls/hr IVPB Q12 [facility]; Protocol Stop: 04/15/18 22:01 Last Admin: 04/10/18 09:26 Dose: 100 mls/hr Vancomycin HCl (Vancomycin 1gm) 1 gm in 250 mls @ 167 mls/hr IVPB [facility]; Protocol Stop: 04/10/18 17:43 Insulin Detemir (Levemir) 5 unit SC [facility] Last Admin: 04/09/18 22:34 Dose: 5 units Insulin Human Regular (Humulin R High) 0 units SC ACHS [facility]; Protocol Last Admin: 04/10/18 11:29 Dose: 7 units Isosorbide Mononitrate (Imdur) 60 mg PO DAILY [facility] Last Admin: 04/10/18 09:27 Dose: 60 mg Levothyroxine Sodium (Synthroid) 50 mcg PO ACB [facility] Last Admin: 04/10/18 07:38 Dose: 50 mcg Losartan Potassium (Cozaar) 100 mg PO DAILY [facility] Last Admin: 04/10/18 09:27 Dose: 100 mg Pantoprazole Sodium (Protonix Ec Tab) 40 mg PO 0600 [facility] Last Admin: 04/10/18 06:45 Dose: 40 mg Venlafaxine HCl (Effexor Xr) 75 mg PO DAILY [facility] Last Admin: 04/10/18 09:27 Dose: 75 mg - Labs Labs: 04/10/18 07:00 04/10/18 07:00 PT 11.6 SECONDS (9.4-12.5) 04/07/18 11:59 INR 1.03 04/07/18 11:59 APTT 41.4 Seconds (26.9-38.3) H 04/07/18 11:59 - Constitutional Appears: Chronically Ill - Head Exam Head Exam: NORMAL INSPECTION - Respiratory Exam Respiratory Exam: Decreased Breath Sounds - Cardiovascular Exam Cardiovascular Exam: +S1, +S2 - GI/Abdominal Exam GI & Abdominal Exam: Soft. absent: Tenderness Assessment and Plan - Assessment and Plan (Free Text) Plan: Assessment consider urinary tract infection CAD S/P PCI DM HTN S/P cholecystectomy Plan on Azactam day 4 and gave a dose of IV Vancomycin; urine cx showing CoNS - can switch to MAcrobid for 3-5 days with outpatient follow up with PMD - discussed with Dr. Jerrod Chaves
== END 2018-04-11 16:45 | disposition home or self-care (01) | DRG 287 ==
LOC: ED 11:21 → ERH 15:20 → 2RNO 17:12 → 2RSO 04-09 10:46 → OBSVTOIN 04-09 13:24 → 5RSO 04-10 12:17
PROVIDERS: ADMIT Hospitalist; ATTEND Hospitalist
PROC: 4A023N7 Measurement of Cardiac Sampling and Pressure, Left Heart, Percutaneous Approach (ICD-10-PCS; principal; 2018-04-09)
PROC: B211YZZ Fluoroscopy of Multiple Coronary Arteries using Other Contrast (ICD-10-PCS; 2018-04-09)
PROC: B215YZZ Fluoroscopy of Left Heart using Other Contrast (ICD-10-PCS; 2018-04-09)
PROC: 4A033BC Measurement of Arterial Pressure, Coronary, Percutaneous Approach (ICD-10-PCS; 2018-04-09)
DX: I25.119 Atherosclerotic heart disease of native coronary artery with unspecified angina pectoris (principal); N17.9 Acute kidney failure, unspecified; N39.0 Urinary tract infection, site not specified; E03.9 Hypothyroidism, unspecified; T50.2X5A Adverse effect of carbonic-anhydrase inhibitors, benzothiadiazides and other diuretics, initial encounter; E11.65 Type 2 diabetes mellitus with hyperglycemia; E11.22 Type 2 diabetes mellitus with diabetic chronic kidney disease; I12.9 Hypertensive chronic kidney disease with stage 1 through stage 4 chronic kidney disease, or unspecified chronic kidney disease; N18.9 Chronic kidney disease, unspecified; E86.0 Dehydration; E78.00 Pure hypercholesterolemia, unspecified; F32.9 Major depressive disorder, single episode, unspecified; E78.1 Pure hyperglyceridemia; Z79.4 Long term (current) use of insulin

== ENCOUNTER 2018-04-20 12:09 | Emergency (ER) | payer MEDICARE ==
[2018-04-20 12:09] VITALS: BMI 38.4
--- NOTE | 2018-04-20 13:17 | ED PDOC ---
Arrival/HPI - General Chief Complaint: Chest Pain Time Seen by Provider: 04/20/18 12:13 Historian: Patient - History of Present Illness Narrative History of Present Illness (Text): 04/20/18 12:13 Aislinn Kim is a 67 year old female with a past medical history of CAD s/p stents, HTN, HLD, and diabetes, who presents to the emergency department with complaints of chest pain. Patient states she recently lost her insurance. Issa sherman had a cardiac cath done on 04/09/2017 with patent stents. Patient denies any fevers, chills, nausea, vomiting, diarrhea, back pain, neck pain, SOB, dyspnea on exertion, or any other complaints. Time/Duration: 24 hours Symptom Onset: Sudden Activities at Onset: Light Context: Home Past Medical History - Provider Review Nursing Documentation Reviewed: Yes - Infectious Disease Hx of Infectious Diseases: None - Cardiac Hx Cardiac Disorders: Yes Hx Hypertension: Yes - Pulmonary Hx Respiratory Disorders: No - Neurological Hx Neurological Disorder: No - HEENT Hx HEENT Disorder: No - Renal Hx Renal Disorder: Yes - Endocrine/Metabolic Hx Endocrine Disorders: Yes Hx Diabetes Mellitus Type 2: Yes Hx Hypothyroidism: Yes - Hematological/Oncological Hx Blood Disorders: No - Integumentary Hx Dermatological Disorder: No - Musculoskeletal/Rheumatological Hx Musculoskeletal Disorders: Yes Hx Falls: Yes - Gastrointestinal Hx Gastrointestinal Disorders: Yes - Genitourinary/Gynecological Hx Genitourinary Disorders: Yes - Psychiatric Hx Psychophysiologic Disorder: Yes Hx Depression: Yes Hx Substance Use: No - Surgical History Hx Cardiac Catheterization: Yes Hx Cholecystectomy: Yes Hx Coronary Stent: Yes (x2) - Anesthesia Hx Anesthesia: Yes Hx Anesthesia Reactions: No Hx Malignant Hyperthermia: No - Suicidal Assessment Feels Threatened In Home Enviroment: No Family/Social History - Physician Review Nursing Documentation Reviewed: Yes Family/Social History: No Known Family HX Smoking Status: Never Smoked Hx Alcohol Use: No Hx Substance Use: No Allergies/Home Meds Allergies/Adverse Reactions: Allergies Penicillins Allergy (Verified 04/20/18 12:40) RASH Home Medications: Home Meds Medication Instructions Recorded Confirmed RX: MetFORMIN [glucoPHAGE] 1,000 mg PO DAILY 04/20/18 04/20/18 Review of Systems - Physician Review All systems were reviewed & negative as marked: Yes - Review of Systems Constitutional: absent: Fevers, Night Sweats Respiratory: absent: SOB, Cough Cardiovascular: Chest Pain Gastrointestinal: absent: Abdominal Pain, Diarrhea, Nausea, Vomiting Genitourinary Female: absent: Dysuria Musculoskeletal: absent: Back Pain, Neck Pain Skin: absent: Rash Neurological: absent: Headache, Dizziness Physical Exam Vital Signs Reviewed: Yes Vital Signs Pulse Resp BP Pulse Ox 04/20/18 12:37 79 18 148/72 100 Temperature: Afebrile Blood Pressure: Normal Pulse: Regular Respiratory Rate: Normal Appearance: Positive for: Well-Appearing, Non-Toxic, Comfortable Pain Distress: None Mental Status: Positive for: Alert and Oriented X 3 Finger Stick Blood Glucose: 146 - Systems Exam Head: Present: Atraumatic, Normocephalic Pupils: Present: PERRL Extroacular Muscles: Present: EOMI Conjunctiva: Present: Normal Mouth: Present: Moist Mucous Membranes Neck: Present: Normal Range of Motion Respiratory/Chest: Present: Clear to Auscultation, Good Air Exchange. No: Respiratory Distress, Accessory Muscle Use Cardiovascular: Present: Regular Rate and Rhythm, Normal S1, S2. No: Murmurs Abdomen: No: Tenderness, Distention, Peritoneal Signs Back: Present: Normal Inspection Upper Extremity: Present: Normal Inspection. No: Cyanosis, Edema Lower Extremity: Present: Normal Inspection. No: Edema Neurological: Present: GCS=15, CN II-XII Intact, Speech Normal Skin: Present: Warm, Dry, Normal Color. No: Rashes Psychiatric: Present: Alert, Oriented x 3, Normal Insight, Anxious (mild). No: Normal Concentration Medical Decision Making ED Course and Treatment: 04/20/18 12:13 Impression: Patient is a 67 year old female who presents to the ED with complaints of chest pain. likely anxiety. Plan: -- EKG -- Labs -- Chest X-Ray -- Urinalysis -- Reassess and Disposition Progress: 04/20/18 13:00 Reviewed EKG, shows: Sinus Tachycardia at 102 BPM, no ST / T wave changes 04/20/18 16:15 atypcial pain trop neg dimer neg. dsicussed chikis grey agrees with outpt managment. neg cath 2 weeks ago. - RAD Interpretation Radiology Orders: 04/20/18 12:45 CHEST PORTABLE [RAD] Stat - EKG Interpretation Interpreted by ED Physician: Yes Type: 12 lead EKG - Scribe Statement The provider has reviewed the documentation as recorded by the Scribe Cholo Astorga All medical record entries made by the Scribe were at my direction and personally dictated by me. I have reviewed the chart and agree that the record accurately reflects my personal performance of the history, physical exam, medical decision making, and the department course for this patient. I have also personally directed, reviewed, and agree with the discharge instructions and disposition. Disposition/Present on Arrival - Present on Arrival Any Indicators Present on Arrival: No History of DVT/PE: No History of Uncontrolled Diabetes: No Urinary Catheter: No History of Decub. Ulcer: No History Surgical Site Infection Following: None - Disposition Have Diagnosis and Disposition been Completed?: Yes Diagnosis: Chest pain Disposition: HOME/ ROUTINE Disposition Time: 15:00 Condition: STABLE Discharge Instructions (ExitCare): Chest Pain That Is Not Caused by the Heart (DC), Chest Pain (ED) Additional Instructions: return to any er with worsening. Referrals: Kurtis Ross MD [Staff Provider] - Follow up with primary Zachary Grey MD [Staff Provider] - Follow up with primary Forms: Instagram (Hungarian)
--- NOTE | 2018-04-20 13:26 | RAD ---
Date of service: 04/20/2018 HISTORY: cp COMPARISON: 04/07/2018 FINDINGS: LUNGS: No active pulmonary disease. Previously seen nodular density is no longer seen PLEURA: No significant pleural effusion identified, no pneumothorax apparent. CARDIOVASCULAR: No aortic atherosclerotic calcification present. Normal cardiac size. No pulmonary vascular congestion. OSSEOUS STRUCTURES: No significant abnormalities. VISUALIZED UPPER ABDOMEN: Normal. OTHER FINDINGS: None. IMPRESSION: No active disease.
[2018-04-20 13:44] LABS: BASO # 0.06 K/mm3 (0.0-2.0); BASO % 0.9 % (0.0-3.0); EOS # 0.2 (0.0-0.7); EOS % 3.1 % (1.5-5.0); HEMOGLOBIN 12.7 g/dL (12.0-16.0); LYMPH # 1.8 (1.2-3.4); LYMPH % 25.9 % (22.0-35.0); MEAN CELL VOLUME 92.5 fl (80.0-105.0); MEAN CORPUSCULAR HEMOGLOBIN 30.8 pg (25.0-35.0); MEAN CORPUSCULAR HGB CONC 33.3 g/dl (31.0-37.0); MEAN PLATELET VOLUME 9.7 fl (7.0-11.0); MONO # 0.5 (0.1-0.6); MONO % 6.8 % (1.0-6.0); RBC 4.12 10^6/uL (3.5-6.1); RED CELL DISTRIBUTION WIDTH 15.5 % (11.5-14.5); WHITE BLOOD COUNT 6.8 10^3/uL (4.5-11.0)
[2018-04-20 13:56] LABS: INR 0.92; PARTIAL THROMBOPLASTIN TIME 41.8 Seconds (26.9-38.3); PROTHROMBIN TIME 10.4 SECONDS (9.4-12.5)
[2018-04-20 14:01] LABS: ALB/GLOB RATIO 1.3 (1.1-1.8); ALBUMIN 4.2 g/dL (3.0-4.8); ALT/SGPT 19 U/L (7-56); AST/SGOT 19 U/L (14-36); BLOOD UREA NITROGEN 22 mg/dL (7-21); CALCIUM 10.2 mg/dL (8.4-10.5); GFR NON-AFRICAN AMERICAN 49; LIPASE 320 U/L (23-300)
[2018-04-20 14:05] LABS: TROPONIN I < 0.01 ng/mL
[2018-04-20 15:12] VITALS: BP 132/62; PULSE 80; RESP 16; O2SAT 98
--- NOTE | 2018-04-20 17:07 | CARD ---
APPROVED REPORT Date of service: 04/20/2018 EKG Measurement Heart [id number] <Conclusion> Sinus tachycardia Otherwise normal ECG
== END 2018-04-20 15:11 | disposition home or self-care (01) ==
LOC: ED 12:09
DX: R07.9 Chest pain, unspecified (principal); E78.5 Hyperlipidemia, unspecified; I10 Essential (primary) hypertension; E11.9 Type 2 diabetes mellitus without complications; I25.10 Atherosclerotic heart disease of native coronary artery without angina pectoris; E03.9 Hypothyroidism, unspecified

== ENCOUNTER 2018-05-18 19:13 | Observation (INO) | payer MEDICARE, OTHER ==
[2018-05-18 19:50] VITALS: BMI 33.4
[2018-05-18 20:10] LABS: HEMOGLOBIN 13.6 g/dL (12.0-16.0); MEAN CELL VOLUME 92.3 fl (80.0-105.0); MEAN CORPUSCULAR HEMOGLOBIN 31.6 pg (25.0-35.0); MEAN CORPUSCULAR HGB CONC 34.3 g/dl (31.0-37.0); RBC 4.3 10^6/uL (3.5-6.1); RED CELL DISTRIBUTION WIDTH 14.6 % (11.5-14.5)
[2018-05-18 20:15] LABS: INR 0.95; PARTIAL THROMBOPLASTIN TIME 40.5 Seconds (26.9-38.3); PROTHROMBIN TIME 10.5 SECONDS (9.4-12.5)
--- NOTE | 2018-05-18 20:15 | ED PDOC ---
Arrival/HPI - General Chief Complaint: Chest Pain Time Seen by Provider: 05/18/18 19:20 Historian: Patient - History of Present Illness Narrative History of Present Illness (Text): 05/18/18 20:09 67 year old female, whose past medical history includes coronary artery disease with stents, and diabetes, who presents to the emergency department complaining of syncopal episode earlier this morning. Patient states she has been expe riencing intermittent chest discomfort with no associated shortness of breath. Patient also reports she has be experiencing extreme fluctuation in her blood sugar levels. She denies any fevers, chills, headache, dizziness, cough, abdominal pain, nausea, vomiting, diarrhea, back pain, neck pain, or any other complaint. Time/Duration: 24 hours Symptom Onset: Sudden Activities at Onset: Light Context: Home Past Medical History - Provider Review Nursing Documentation Reviewed: Yes - Infectious Disease Hx of Infectious Diseases: None - Reproductive Menopause: Yes - Cardiac Hx Cardiac Disorders: Yes Hx Hypertension: Yes - Pulmonary Hx Respiratory Disorders: No - Neurological Hx Neurological Disorder: No - HEENT Hx HEENT Disorder: No - Renal Hx Renal Disorder: Yes - Endocrine/Metabolic Hx Endocrine Disorders: Yes Hx Diabetes Mellitus Type 2: Yes Hx Hypothyroidism: Yes - Hematological/Oncological Hx Blood Disorders: No - Integumentary Hx Dermatological Disorder: No - Musculoskeletal/Rheumatological Hx Musculoskeletal Disorders: Yes Hx Falls: Yes - Gastrointestinal Hx Gastrointestinal Disorders: Yes - Genitourinary/Gynecological Hx Genitourinary Disorders: Yes - Psychiatric Hx Psychophysiologic Disorder: Yes Hx Depression: Yes Hx Substance Use: No - Surgical History Hx Cardiac Catheterization: Yes Hx Cholecystectomy: Yes Hx Coronary Stent: Yes (x2) - Anesthesia Hx Anesthesia: Yes Hx Anesthesia Reactions: No Hx Malignant Hyperthermia: No - Suicidal Assessment Feels Threatened In Home Enviroment: No Family/Social History - Physician Review Nursing Documentation Reviewed: Yes Family/Social History: No Known Family HX Smoking Status: Never Smoked Hx Alcohol Use: No Hx Substance Use: No Allergies/Home Meds Allergies/Adverse Reactions: Allergies Penicillins Allergy (Verified 04/20/18 12:40) RASH Home Medications: Home Meds Medication Instructions Recorded Confirmed MetFORMIN [glucoPHAGE] 1,000 mg PO DAILY 04/20/18 04/20/18 Review of Systems - Physician Review All systems were reviewed & negative as marked: Yes - Review of Systems Constitutional: absent: Fevers Respiratory: absent: SOB Cardiovascular: Chest Pain, Syncope Gastrointestinal: absent: Abdominal Pain, Diarrhea, Nausea, Vomiting Musculoskeletal: absent: Back Pain, Neck Pain Neurological: absent: Headache, Dizziness Physical Exam Vital Signs Reviewed: Yes Vital Signs Temp Pulse Resp BP Pulse Ox 05/18/18 19:26 97.9 F 100 H 18 121/67 100 Temperature: Afebrile Blood Pressure: Normal Pulse: Tachycardic Respiratory Rate: Normal Appearance: Positive for: Well-Appearing, Non-Toxic, Comfortable Pain Distress: None Mental Status: Positive for: Alert and Oriented X 3 Finger Stick Blood Glucose: 254 - Systems Exam Head: Present: Atraumatic, Normocephalic Pupils: Present: PERRL Extroacular Muscles: Present: EOMI Conjunctiva: Present: Normal Mouth: Present: Moist Mucous Membranes Neck: Present: Normal Range of Motion Respiratory/Chest: Present: Clear to Auscultation, Good Air Exchange. No: Respiratory Distress, Accessory Muscle Use Cardiovascular: Present: Regular Rate and Rhythm, Normal S1, S2. No: Murmurs Abdomen: No: Tenderness, Distention, Peritoneal Signs Back: Present: Normal Inspection Upper Extremity: Present: Normal Inspection. No: Cyanosis, Edema Lower Extremity: Present: Normal Inspection. No: Edema Neurological: Present: GCS=15, CN II-XII Intact, Speech Normal Skin: Present: Warm, Dry, Normal Color. No: Rashes Psychiatric: Present: Alert, Oriented x 3, Normal Insight, Normal Concentration Medical Decision Making ED Course and Treatment: 05/18/18 20:17 Impression: 67 year old female, who presents to the emergency department complaining of syncope. Plan: -- Head CT w/o contrast -- EKG -- Labs -- Chest X-ray -- Reassess and disposition Prior Visits: Notes and results from previous visits were reviewed. Progress Notes: EKG reviewed by me, show: NSR at [address]/T wave changes. 05/18/18 21:[address] w/o contrast reviewed by radiologist, shows: IMPRESSION: 1. There is generalized parenchymal atrophy noted as demonstrated by symmetrical dilatation of ventricles and sulci. 2. Chronic periventricular and subcortical microvascular disease is seen. 3. Minimal bilateral basal ganglia calcifications are seen. 4. No acute intracranial pathology. 05/18/18 23:[address] Walker and resident for patients admission into his service. - Lab Interpretations I have reviewed the lab results: Yes - RAD Interpretation Radiology Orders: 05/18/18 19:51 HEAD W/O CONTRAST [CT] Stat CHEST PORTABLE [RAD] Stat Supervisor Capacitor Processing: Radiologist - EKG Interpretation Interpreted by ED Physician: Yes Type: 12 lead EKG - Scribe Statement The provider has reviewed the documentation as recorded by the Scribe [place] Provider Scribe Attestation: All medical record entries made by the Scribe were at my direction and personally dictated by me. I have reviewed the chart and agree that the record accurately reflects my personal performance of the history, physical exam, medical decision making, and the department course for this patient. I have also personally directed, reviewed, and agree with the discharge instructions and disposition. Disposition/Present on Arrival - Present on Arrival Any Indicators Present on Arrival: No History of DVT/PE: No History of Uncontrolled Diabetes: No Urinary Catheter: No History of Decub. Ulcer: No History Surgical Site Infection Following: None - Disposition Have Diagnosis and Disposition been Completed?: Yes Diagnosis: Syncope, Chest pain Disposition: HOSPITALIZED Disposition Time: 22:50 Condition: STABLE
[2018-05-18 20:32] LABS: ALB/GLOB RATIO 1.3 (1.1-1.8); ALBUMIN 4.1 g/dL (3.0-4.8); ALT/SGPT 14 U/L (7-56); AST/SGOT 18 U/L (14-36); BLOOD UREA NITROGEN 26 mg/dL (7-21); CALCIUM 9.7 mg/dL (8.4-10.5); GFR NON-AFRICAN AMERICAN 37
[2018-05-18 20:36] LABS: TROPONIN I < 0.01 ng/mL
--- NOTE | 2018-05-18 22:50 | CP.PCM.HP ---
<Patrick Kay - Last Filed: 05/19/18 01:19> History of Present Illness - History of Present Illness History of Present Illness: Resident History & Physical for Hospitalist Service Patient is a 67 year old female with past medical history of CAD, T2DM, HTN, hypothyroidism, depression presenting with chief complaint of chest pain and syncopal episode. Chest pain began three days ago, is localized to her left anterior chest wall, and described as a constant heavy pressure. Patient denies any associated dyspnea, diaphoresis, or worsening of symptoms with exertion. Of note, patient had recent cardiac catheterization in March 2018. Patient also admits to a syncopal event early this morning. She states that she was walking back from the bathroom when she became dizzy and lost consciousness. Patient admits to frequent syncopal events as a child, usually associated with menses. She currently has syncopal episodes approximately once every three months. Patient states she has uncontrolled glucose levels ranging from 50s to 300s at home. She is compliant with her medications but has not followed with her PMD and animal trainer recently. PMH: CAD, T2DM, HTN, hypothyroidism, depression PSH: stent placement in LAD and RCA (2018 @ [facility]), cholecystectomy SHx: denies alcohol, tobacco, illicit drug use FHx: denies Allergies: penicillins (rash) PMD: Dr. Carrillo Present on Admission - Present on Admission Any Indicators Present on Admission: No Review of Systems - Review of Systems All systems: reviewed and no additional remarkable complaints except (as stated in HPI) Past Patient History - Infectious Disease Hx of Infectious Diseases: None - Past Social History Smoking Status: Never Smoked - CARDIAC Hx Cardiac Disorders: Yes Hx Hypertension: Yes - PULMONARY Hx Respiratory Disorders: No - NEUROLOGICAL Hx Neurological Disorder: No - HEENT Hx HEENT Problems: No - RENAL Hx Chronic Kidney Disease: Yes - ENDOCRINE/METABOLIC Hx Endocrine Disorders: Yes Hx Diabetes Mellitus Type 2: Yes Hx Hypothyroidism: Yes - HEMATOLOGICAL/ONCOLOGICAL Hx Blood Disorders: No - INTEGUMENTARY Hx Dermatological Problems: No - MUSCULOSKELETAL/RHEUMATOLOGICAL Hx Musculoskeletal Disorders: Yes Hx Falls: Yes - GASTROINTESTINAL Hx Gastrointestinal Disorders: Yes - GENITOURINARY/GYNECOLOGICAL Hx Genitourinary Disorders: Yes - PSYCHIATRIC Hx Psychophysiologic Disorder: Yes Hx Depression: Yes Hx Substance Use: No - SURGICAL HISTORY Hx Cardiac Catheterization: Yes Hx Cholecystectomy: Yes Hx Coronary Stent: Yes (x2) - ANESTHESIA Hx Anesthesia: Yes Hx Anesthesia Reactions: No Hx Malignant Hyperthermia: No Meds Allergies/Adverse Reactions: Allergies Allergy/AdvReac Type Severity Reaction Status Date / Time Penicillins Allergy RASH Verified 04/20/18 12:40 Physical Exam - Constitutional Appears: Non-toxic, No Acute Distress - Head Exam Head Exam: ATRAUMATIC, NORMOCEPHALIC - Eye Exam Eye Exam: EOMI, Normal appearance, PERRL - ENT Exam ENT Exam: Mucous Membranes Moist - Neck Exam Neck exam: Positive for: Normal Inspection. Negative for: Lymphadenopathy - Respiratory Exam Respiratory Exam: Chest Wall Tenderness, Clear to Auscultation Bilateral, NORMAL BREATHING PATTERN. absent: Accessory Muscle Use, Decreased Breath Sounds, Rales, Rhonchi, Wheezes, Respiratory Distress - Cardiovascular Exam Cardiovascular Exam: RRR, +S1, +S2. absent: Systolic Murmur - GI/Abdominal Exam GI & Abdominal Exam: Soft. absent: Distended, Firm, Guarding, Tenderness - Extremities Exam Extremities exam: Positive for: normal capillary refill. Negative for: calf tenderness - Neurological Exam Neurological exam: Alert, CN II-XII Intact, Oriented x3 - Psychiatric Exam Psychiatric exam: Normal Affect, Normal Mood - Skin Skin Exam: Dry, Intact, Normal Color, Warm Results - Vital Signs Recent Vital Signs: Last Vital Signs Temp 97.9 F 05/18/18 19:26 Pulse 100 H 05/18/18 19:26 Resp 18 05/18/18 19:26 BP 121/67 05/18/18 19:26 Pulse Ox 100 05/18/18 19:26 - Labs Result Diagrams: 05/18/18 19:32 05/18/18 19:32 Labs: Laboratory Results - last 24 hr 05/18/18 05/18/18 05/18/18 19:20 19:32 19:32 WBC RBC Hgb Hct MCV MCH MCHC RDW Plt Count MPV PT 10.5 INR 0.95 APTT 40.5 H Sodium 137 Potassium 4.0 Chloride 100 Carbon Dioxide 22 Anion Gap 19 BUN 26 H Creatinine 1.4 H Est GFR ( Amer) 45 Est GFR (Non-Af Amer) 37 POC Glucose (mg/dL) 254 H Random Glucose 277 H Calcium 9.7 Total Bilirubin 0.6 AST 18 ALT 14 Alkaline Phosphatase 127 H D Lactate Dehydrogenase 459 Total Creatine Kinase 42 Troponin I < 0.01 Total Protein 7.5 Albumin 4.1 Globulin 3.3 Albumin/Globulin Ratio 1.3 05/18/18 19:32 WBC 7.0 RBC 4.30 Hgb 13.6 Hct 39.7 MCV 92.3 MCH 31.6 MCHC 34.3 RDW 14.6 H Plt Count 326 MPV 10.0 PT INR APTT Sodium Potassium Chloride Carbon Dioxide Anion Gap BUN Creatinine Est GFR ( Amer) Est GFR (Non-Af Amer) POC Glucose (mg/dL) Random Glucose Calcium Total Bilirubin AST ALT Alkaline Phosphatase Lactate Dehydrogenase Total Creatine Kinase Troponin I Total Protein Albumin Globulin Albumin/Globulin Ratio Assessment & Plan - Assessment and Plan (Free Text) Assessment: Patient is a 67 year old female with past medical history of CAD, T2DM, HTN, hypothyroidism, depression presenting with atypical chest pain and syncope. Plan: Chest pain - EKG shows NSR - Troponin negx1 - cardiac cath from 03/2018 showed borderline 50-60% stenosis in proximal LAD, LV function normal with EF 60% - s/p 325 mg Aspirin in ED - Cardiology consulted - Troponins & CPK Q4H - EKG in AM - thyroid panel, lipid panel, Hgba1c - ECHO - Lopressor 25 mg PO BID - Aspirin 81 mg PO daily - Lipitor 80 mg PO daily - Nitroglycerin paste Syncope - CXR shows no active disease - Head CT shows generalized atrophy, no acute pathology - Neurology consulted - Orthostatics - Carotid and LE dopplers - Brain MRI/MRA PAGE - Renal U/S - continue to monitor T2DM - ISS, Accuchecks - hold metformin CAD - continue Lipitor Hypertension - hold HCTZ, Norvasc, Losartan - Lopressor Hypothyroidism - continue home Synthroid Depression - continue home Effexor PPX - Pepcid, Heparin SC Case reviewed with Dr. Aaron Kay PGY-1 <Brian Walker U - Last Filed: 05/21/18 08:47> Results - Vital Signs Recent Vital Signs: Last Vital Signs Temp 98.8 F 05/20/18 12:00 Pulse 70 05/20/18 12:00 Resp 18 05/20/18 12:00 BP 127/73 05/20/18 12:00 Pulse Ox 95 05/20/18 06:00 - Labs Result Diagrams: 05/20/18 06:10 05/20/18 06:10 Labs: Laboratory Results - last 24 hr 05/19/18 05/20/18 05/20/18 23:55 07:40 11:56 POC Glucose (mg/dL) 244 H 225 H RPR Nonreactive Lyme Disease IgG Ab (IFA) Negative Lyme Disease IgM Ab Negative Attending/Attestation - Attestation I have personally seen and examined this patient.: Yes I have fully participated in the care of the patient.: Yes I have reviewed all pertinent clinical information: Yes Notes (Text): Please see/read my dictated notes.
[2018-05-19] MEDS ORDERED: Dextrose 50% SYRINGE Inj (50 ml) IV PRN (00:02)
[2018-05-19 00:39] LABS: ARTERIAL BLOOD GAS HCO3 25.9 mmol/L (21-28); ARTERIAL BLOOD GAS PCO2 34 mm/Hg (35-45); ARTERIAL BLOOD GAS PH 7.49 (7.35-7.45); ARTERIAL BLOOD GAS TCO2 26.9 mmol.L (22-28)
[2018-05-19] MEDS ORDERED: Piperacillin/Tazobact 2.25gm 2.25 GM/100 ML BAG IVPB STA (00:46)
[2018-05-19] MEDS ORDERED: Cefepime IV 2 gm in NS 2 GM/100 ML BAG IVPB STA (00:55)
[2018-05-19] MEDS ORDERED: Iohexol 240 (50 ml) ONE (01:01)
[2018-05-19 01:15] LABS: HDL CHOLESTEROL 25 mg/dL (29-60)
[2018-05-19] MEDS: Nitroglycerin 2% Ointment Foilpak UD TOP SCH ×2 (01:19→06:09)
[2018-05-19 01:32] LABS: LDL CHOLESTEROL 102 mg/dL (0-129)
[2018-05-19 01:34] LABS: B-TYPE NATRIURETIC PEPTIDE 111 pg/mL (0-450); TROPONIN I < 0.01 ng/mL
[2018-05-19 01:39] LABS: FREE T4 1.5 ng/dL (0.78-2.19)
[2018-05-19 04:33] LABS: VENOUS BLOOD GAS BASE EXCESS 4.2 mmol/L (0.0-2.0); VENOUS BLOOD GAS PO2 26 mm/Hg (30-55); VENOUS BLOOD PH 7.39 (7.32-7.43)
[2018-05-19 05:10] LABS: TROPONIN I < 0.01 ng/mL
[2018-05-19] MEDS: Levothyroxine 50 MCG TAB PO SCH (06:05)
[2018-05-19] MEDS ORDERED: Insulin Reg-LOW-Coverage SC SCH (07:30)
--- NOTE | 2018-05-19 08:29 | HP ---
DATE OF EXAM: 05/18/2018 Please refer to the detailed history and physical examination by the medical pathologist for all details. The patient was seen in the emergency room in bed 7. The patient is a 67-year-old [place] female, presented to the emergency room by [facility] complaining of chest pain and syncopal episode this a.m. The patient was examined in bed 7, detailed history and physical examination as per the medical pathologist. The patient's vital signs, diagnostic data, all imaging studies all reviewed. Past medical history and medical history reviewed. IMPRESSION AND PLAN: 1. Chest pain, etiology undetermined. 2. Syncope, etiology undetermined. 3. History of uncontrolled diabetes mellitus with elevated hemoglobin A1c. 4. History of morbid obesity. 5. Questionable acute kidney injury. 6. History of hyperglycemia. 7. Generalized cerebral cortical a atrophy of the brain. 8. Microvascular ischemic disease of the brain. 9. Bilateral basal ganglia calcification. 10. History of hypertension. 11. History of depression. 12. History of hyperlipidemia. 13. History of sal-lrpomcu-izradvtji diabetes mellitus. 14. History of hypothyroidism. 15. History of unstable angina. 16. History of multivessel coronary artery disease and multivessel angioplasty. 17. History of bilateral lower extremity venous stasis. 18. History of type 2 diabetes. 19. History of cholecystectomy. 20. History of questionable pancreatitis. 21. History of proteinuria. 22. History of Escherichia coli urinary tract infection. 23. History of left ventricle ejection fraction of 50-60%. 24. History of angioplasty and stent placement of the proximal right coronary artery disease. 25. History of angioplasty and stent placement of the mid left anterior descending artery. 26. A 50% stenosis of the proximal left anterior descending after the takeoff of the diagonal vessel. 27. History of pulmonary hypertension with right ventricular systolic pressure of 55 mmHg. 28. Grade 1 abnormal relaxation pattern. 29. Mild mitral regurgitation. 30. History of extended spectrum beta-lactamase urinary tract infection. 31. HISTORY OF PENICILLIN ALLERGY. Plan at this time, the patient is to be admitted to telemetry. Consultation with Cardiology and Neurology. The patient received aspirin. The patient will be ordered complete neurology and cardiology testing. The patient will be started on fingerstick blood sugar sliding scale coverage. The patient is started on aspirin, Plavix, and statins. The patient's thyroid medications will be resumed. The patient will be put on neuro checks. The patient's further management will be dependent upon the patient's clinical condition, hemodynamic status and as per the patient response to therapeutic intervention as per the patient's diagnostic test results and as per recommendation by all the physician involved in the care of the patient. At present, the patient is in the emergency room awaiting for a telemetry bed. Further management as discussed above. Dictated and electronically signed, not read. Brian Walker MD
--- NOTE | 2018-05-19 08:31 | CT ---
Date of service: 05/18/2018 PROCEDURE: CT HEAD WITHOUT CONTRAST. HISTORY: syncope COMPARISON: Comparison is made with the previous study dated 11/27/2017 TECHNIQUE: Axial computed tomography images were obtained through the head/brain without intravenous contrast. Radiation dose: Total exam DLP = 1280.44 mGy-cm. This CT exam was performed using one or more of the following dose reduction techniques: Automated exposure control, adjustment of the mA and/or kV according to patient size, and/or use of iterative reconstruction technique. FINDINGS: HEMORRHAGE: No intracranial hemorrhage. BRAIN: No mass effect or edema. Mild volume loss is again noted. Mild chronic microvascular white matter ischemic changes are also again noted. There are fairly symmetrical bilateral basal ganglia calcification also again noted. VENTRICLES: Unremarkable. No hydrocephalus. CALVARIUM: Unremarkable. PARANASAL SINUSES: Unremarkable as visualized. No significant inflammatory changes. MASTOID AIR CELLS: Unremarkable as visualized. No inflammatory changes. OTHER FINDINGS: None. IMPRESSION: No evidence of acute intracranial hemorrhage intracranial collection mass effect or midline shift. Stable additional findings as discussed above. Preliminary report was submitted by [facility] Radiology contains concordant findings.
[2018-05-19 08:41] LABS: BASO # 0.05 K/mm3 (0.0-2.0); BASO % 0.9 % (0.0-3.0); EOS # 0.2 (0.0-0.7); HEMOGLOBIN 12.7 g/dL (12.0-16.0); LYMPH # 1.7 (1.2-3.4); LYMPH % 28.9 % (22.0-35.0); MEAN CELL VOLUME 93.1 fl (80.0-105.0); MEAN CORPUSCULAR HEMOGLOBIN 31.1 pg (25.0-35.0); MEAN CORPUSCULAR HGB CONC 33.4 g/dl (31.0-37.0); MEAN PLATELET VOLUME 9.6 fl (7.0-11.0); MONO # 0.3 (0.1-0.6); MONO % 5.7 % (1.0-6.0); RBC 4.08 10^6/uL (3.5-6.1); RED CELL DISTRIBUTION WIDTH 14.6 % (11.5-14.5); WHITE BLOOD COUNT 5.7 10^3/uL (4.5-11.0)
[2018-05-19] MEDS: Insulin Reg-MEDIUM-Coverage SC SCH ×2 (08:47→16:44)
[2018-05-19] MEDS: Sodium Chloride 0.9% 1,000 ML IV SCH ×2 (08:48→16:45)
[2018-05-19 08:51] LABS: ALB/GLOB RATIO 1.2 (1.1-1.8); ALT/SGPT 14 U/L (7-56); AST/SGOT 17 U/L (14-36); BLOOD UREA NITROGEN 27 mg/dL (7-21); CALCIUM 9.4 mg/dL (8.4-10.5); GFR NON-AFRICAN AMERICAN 37
[2018-05-19 09:01] LABS: TROPONIN I < 0.01 ng/mL
[2018-05-19] MEDS: Venlafaxine 75 mg ER Cap PO SCH (09:35)
--- NOTE | 2018-05-19 09:38 | US ---
Date of service: 05/19/2018 PROCEDURE: Ultrasound of the Kidneys HISTORY: ARF COMPARISON: 04/09/2018. TECHNIQUE: Sonogram of the kidneys. FINDINGS: RIGHT KIDNEY: Measures: 10.0 cm. Normal in size, contour with mild diffuse increased echogenicity. No stone, solid mass lesion or hydronephrosis visualized. LEFT KIDNEY: Measures: 10.0 cm. Normal in size, contour with mild diffuse increased echogenicity. No stone, solid mass lesion or hydronephrosis visualized. OTHER FINDINGS: None. IMPRESSION: Medical renal disease. No hydronephrosis or nephrolithiasis.
--- NOTE | 2018-05-19 09:42 | US ---
PROCEDURE: Bilateral carotid artery duplex ultrasound HISTORY: Carotid stenosis syncope PHYSICIAN(S): Zachary Monet MD. TECHNIQUE: Duplex sonography and color-flow Doppler were used to evaluate the carotid bifurcations and limited segments of the vertebral arteries bilaterally. FINDINGS: There is mild smooth heterogeneous plaque noted at the carotid bifurcations bilaterally. The peak systolic velocity in the proximal right internal carotid artery is 70 cm/sec. This corresponds to a 20 to 39% proximal right ICA stenosis. Normal systolic velocities are noted in the proximal right external carotid artery. There is antegrade flow in the right vertebral artery. The peak systolic velocity in the proximal left internal carotid artery is 60 cm/sec. This corresponds to a 20 to 39% proximal left ICA stenosis. Normal systolic velocities are noted in the proximal left external carotid artery. There is antegrade flow in the left vertebral artery. IMPRESSION: 1. Bilateral 20-39% proximal ICA stenoses. 2. Antegrade flow in both vertebral arteries.
--- NOTE | 2018-05-19 09:42 | US ---
HISTORY: Leg pain and swelling. Evaluate for DVT PHYSICIAN(S): Zachary Monet MD. TECHNIQUE: Duplex sonography and color-flow Doppler with graded compression were used to evaluate the deep venous systems of both lower extremities. FINDINGS: The visualized deep venous systems of both lower extremities are sonographically normal and compressible. Normal wave forms and augmentation are seen. There is no sonographic evidence for deep venous thrombosis in the visualized segments of both lower extremities. IMPRESSION: No sonographic evidence for deep venous thrombosis in the visualized segments of both lower extremities.
[2018-05-19] MEDS: Omega-3-Acid Ethyl Esters 1 GM Cap PO SCH ×2 (09:43→17:00)
--- NOTE | 2018-05-19 09:46 | RAD ---
Date of service: 05/18/2018 HISTORY: chest pain COMPARISON: 04/20/2018. FINDINGS: LUNGS: The lungs are well inflated and clear. PLEURA: No pleural effusions or pneumothorax. CARDIOVASCULAR: The heart is normal in size. No aortic atherosclerotic calcifications present. OSSEOUS STRUCTURES: Within normal limits for the patient's age. VISUALIZED UPPER ABDOMEN: Normal. OTHER FINDINGS: None. IMPRESSION: No active pulmonary disease.
--- NOTE | 2018-05-19 10:45 | CP.PCM.PN ---
<Jimmie Merrill Fernando - Last Filed: 05/19/18 10:33> Subjective - Date & Time of Evaluation Date of Evaluation: 05/19/18 Time of Evaluation: 10:34 - Subjective Subjective: Medicine progress note for Dr. Aaron Merrill, PGY - 2 Patient seen and examined at bedside. Patient had syncopal event early yesterday morning. She states that she was walking back from the bathroom when she became dizzy and lost consciousness. Denies hitting her head. Recently admitted to [facility] for CP - Dr. Giles was called for consult, who took patient for cardiac catheterization, which revealed patent stents in proximal RCA and mid LAD. EF was 60%. Objective - Vital Signs/Intake and Output Vital Signs (last 24 hours): Temp Pulse Resp BP Pulse Ox 98.1 F 98 H 20 136/78 98 05/19/18 06:00 05/19/18 09:35 05/19/18 06:00 05/19/18 09:35 05/19/18 06:00 Intake and Output: 05/19/18 05/19/18 06:59 18:59 Intake Total 1500 Balance 1500 - Medications Medications: Current Medications Aspirin (Ecotrin) 81 mg PO DAILY [facility] Last Admin: 05/19/18 09:36 Dose: 81 mg Atorvastatin Calcium (Lipitor) 80 mg PO DIN ENRIQUETA Clopidogrel Bisulfate (Plavix) 75 mg PO QAM [facility] Last Admin: 05/19/18 09:35 Dose: 75 mg Dextrose (Dextrose 50% Inj) 0 ml IV STAT PRN; Protocol PRN Reason: Hypoglycemia Protocol Famotidine (Pepcid) 20 mg PO 1000,2200 [facility] Last Admin: 05/19/18 09:35 Dose: 20 mg Heparin Sodium (Porcine) (Heparin) 5,000 units SC Q8 [facility]; Protocol Last Admin: 05/19/18 06:05 Dose: 5,000 units Dextrose (Dextrose 5% In Water 1000 Ml) 1,000 mls @ 0 mls/hr IV .Q0M PRN; Protocol PRN Reason: Hypoglycemia Protocol Sodium Chloride (Sodium Chloride 0.9%) 1,000 mls @ 125 mls/hr IV .Q8H [facility] Last Admin: 05/19/18 08:48 Dose: 125 mls/hr Insulin Human Regular (Humulin R Med) 0 units SC ACHS [facility]; Protocol Last Admin: 05/19/18 08:47 Dose: 3 units Levothyroxine Sodium (Synthroid) 50 mcg PO 0600 [facility] Last Admin: 05/19/18 06:05 Dose: 50 mcg Metoprolol Tartrate (Lopressor) 25 mg PO BID [facility] Last Admin: 05/19/18 09:35 Dose: 25 mg Nitroglycerin (Nitro-Bid 2% Oint) 0 ea TOP Q6H [facility] Last Admin: 05/19/18 06:09 Dose: 1 ea [id number] Ethyl Esters (Lovaza) 2 gm PO BID [facility] Last Admin: 05/19/18 09:43 Dose: 2 gm Venlafaxine HCl (Effexor Xr) 75 mg PO DAILY [facility] Last Admin: 05/19/18 09:35 Dose: 75 mg - Labs Labs: 05/19/18 08:25 05/19/18 08:25 PT 10.5 SECONDS (9.4-12.5) 05/18/18 19:32 INR 0.95 05/18/18 19:32 APTT 40.5 Seconds (26.9-38.3) H 05/18/18 19:32 - Constitutional Appears: Well - Head Exam Head Exam: ATRAUMATIC, NORMAL INSPECTION, NORMOCEPHALIC - Eye Exam Eye Exam: EOMI, Normal appearance, PERRL Pupil Exam: NORMAL ACCOMODATION, PERRL - ENT Exam ENT Exam: Mucous Membranes Moist, Normal Exam - Neck Exam Neck Exam: Full ROM, Normal Inspection. absent: Lymphadenopathy - Respiratory Exam Respiratory Exam: Clear to Ausculation Bilateral, NORMAL BREATHING PATTERN - Cardiovascular Exam Cardiovascular Exam: REGULAR RHYTHM, +S1, +S2. absent: Murmur - GI/Abdominal Exam GI & Abdominal Exam: Soft, Normal Bowel Sounds. absent: Tenderness - Extremities Exam Extremities Exam: Full ROM, Normal Capillary Refill, Normal Inspection. absent: Joint Swelling, Pedal Edema - Back Exam Back Exam: NORMAL INSPECTION - Neurological Exam Neurological Exam: Alert, Awake, CN II-XII Intact, Normal Gait, Oriented x3 - Psychiatric Exam Psychiatric exam: Normal Affect, Normal Mood - Skin Skin Exam: Dry, Intact, Normal Color, Warm Assessment and Plan - Assessment and Plan (Free Text) Assessment: Patient is a 67 year old female with past medical history of CAD, T2DM, HTN, hypothyroidism, depression presenting with atypical chest pain and syncope. Plan: Chest pain Patient with Milena-Cameron non-anginal chest pain; EKG showed NSR with 3 negative troponins. However, ASCVD score is 27.6%. Recent cardiac cath showed patent stents with 60% EF. ECHO was not performed on that visit. - s/p 325 mg Aspirin in ED - Cardiology consulted - ECHO ordered - Lopressor 25 mg PO BID, Aspirin 81 mg PO daily, Lipitor 80 mg PO daily, Nitroglycerin paste Syncope Patient's BUN elevated, with possible dehydration. Patient on clinical exam has dry skin, and is borderline orthostatic. No acute bleed on Head CT. - Neurology consulted - Carotid and LE dopplers; Brain MRI/MRA - ECHO ordered PAGE - Renal U/S - IVF hydration/resuscitation - monitor blood pressure T2DM - ISS, Accuchecks - hold metformin CAD - continue Lipitor Hypertension - hold HCTZ, Norvasc, Losartan - Lopressor Hypothyroidism - Continue home Synthroid Depression - continue home Effexor PPX - Pepcid, Heparin SC <Aaron,Brian U - Last Filed: 05/21/18 08:46> Objective - Vital Signs/Intake and Output Vital Signs (last 24 hours): Temp Pulse Resp BP Pulse Ox 98.8 F 70 18 127/73 95 05/20/18 12:00 05/20/18 12:00 05/20/18 12:00 05/20/18 12:00 05/20/18 06:00 - Labs Labs: 05/20/18 06:10 05/20/18 06:10 PT 10.5 SECONDS (9.4-12.5) 05/18/18 19:32 INR 0.95 05/18/18 19:32 APTT 40.5 Seconds (26.9-38.3) H 05/18/18 19:32 Attending/Attestation - Attestation I have personally seen and examined this patient.: Yes I have fully participated in the care of the patient.: Yes I have reviewed all pertinent clinical information, including history, physical exam and plan: Yes Notes (Text): Please see/read my dictated notes.
--- NOTE | 2018-05-19 10:57 | PN ---
DATE: 05/19/2018 LOCATION: The patient is in room 276, bed 1. SUBJECTIVE: The patient was admitted overnight. Events were noted and reviewed. The patient's D-dimer was negative. OBJECTIVE: VITAL SIGNS: T-max 98. Telemetry shows normal sinus rhythm. Heart rate 82 to 95. Blood pressure 137/82, respirations 18, O2 sat 99%. HEENT: The patient's head examination normocephalic, atraumatic. HEENT examination shows pinkish conjunctivae. Anicteric sclerae. No oropharyngeal lesion. No neck rigidity. CHEST: Kyphosis. LUNGS: Decreased breath sound at the bases. CARDIOVASCULAR: S1, S2. Regular rhythm. Positive systolic murmur, right second intercostal space, left second intercostal space, left sternal border. ABDOMEN: Obese. Positive bowel sound. No palpable hepatosplenomegaly. GENITALIA: Female. RECTAL: Deferred. EXTREMITIES: Shows positive pitting edema of the lower extremity. MUSCULOSKELETAL: Shows an elevated body mass index. NEUROLOGIC: The patient is alert, awake, responsive, is able to move upper and lower extremity without assistance. Gait examination is not tested. Vascular examination palpable pulses. DIAGNOSTICS: Troponin, all three sets are negative. Triglyceride 282, cholesterol 206, LDL 102. The patient had an ABG done overnight, pH of 7.49, pCO2 of 34, pO2 of 85, bicarb 26, saturation of 99%. Venous Doppler of the lower extremity, preliminary report negative for DVT. D-dimer less than 200. Repeat complete diagnostic data pending. The patient's echo report pending. Pending test reports, MRI, MRA of the brain, echo with Doppler, carotid Dopplers pending. Repeat EKG from this morning, pending. IMPRESSION: 1. Chest pain, etiology undetermined. 2. History of multivessel coronary artery disease, history of angioplasty of the RCA and left anterior descending artery. 3. Syncope, etiology undetermined. 4. Type 2 tux-ixwfbuv-dvulrfxus diabetes mellitus. 5. Acute kidney injury. 6. History of chronic kidney disease. 7. History of hypertension, hyperlipidemia, hypothyroidism. 8. Hypertriglyceridemia and hypercholesterolemia with elevated LDL. 9. Morbid obesity. 10. Questionable sleep apnea. 11. Acute kidney injury with underlying chronic kidney disease stage III. 12. History of uncontrolled diabetes mellitus. 13. History of depression. 14. Bilateral lower extremity venous stasis. 1. Chest pain, etiology undetermined. 2. Syncope, etiology undetermined. 3. History of uncontrolled diabetes mellitus with elevated hemoglobin A1c. 4. History of morbid obesity. 5. Questionable acute kidney injury. 6. History of hyperglycemia. 7. Generalized cerebral cortical a atrophy of the brain. 8. Microvascular ischemic disease of the brain. 9. Bilateral basal ganglia calcification. 10. History of hypertension. 11. History of depression. 12. History of hyperlipidemia. 13. History of cvr-eisyzpm-ogbvfrths diabetes mellitus. 14. History of hypothyroidism. 15. History of unstable angina. 16. History of multivessel coronary artery disease and multivessel angioplasty. 17. History of bilateral lower extremity venous stasis. 18. History of type 2 diabetes. 19. History of cholecystectomy. 20. History of questionable pancreatitis. 21. History of proteinuria. 22. History of Escherichia coli urinary tract infection. 23. History of left ventricle ejection fraction of 50-60%. 24. History of angioplasty and stent placement of the proximal right coronary artery disease. 25. History of angioplasty and stent placement of the mid left anterior descending artery. 26. A 50% stenosis of the proximal left anterior descending after the takeoff of the diagonal vessel. 27. History of pulmonary hypertension with right ventricular systolic pressure of 55 mmHg. 28. Grade 1 abnormal relaxation pattern. 29. Mild mitral regurgitation. 30. History of extended spectrum beta-lactamase urinary tract infection. 31. HISTORY OF PENICILLIN ALLERGY. PLAN: At this time, we are awaiting for repeat labs from this morning. Cardiology, neurology evaluation pending. MRI, MRA of the brain, carotid Doppler. Echocardiogram report pending. Repeat EKG pending. The patient has also been ordered a renal ultrasound, the results of which are pending. Plan at this time, the patient's further management will be dependent upon the patient's clinical condition, hemodynamic status, and as per the patient response to therapeutic intervention, as per the patient's diagnostic test results and as per recommendation by all the physician involved in the care of the patient. Dictated and electronically signed, not read. Brian Walker MD [facility]
--- NOTE | 2018-05-19 11:17 | CT ---
Date of service: 05/19/2018 PROCEDURE: CT Chest, Abdomen and Pelvis without intravenous contrast HISTORY: r/o infection, elev lactate COMPARISON: Comparison is made to the previous CT of the chest dated 04/07/2018 CT of the abdomen and pelvis dated 11/27/2017 TECHNIQUE: Axial and reformatted coronal and sagittal CT images of the chest abdomen and pelvis were obtained without IV contrast administration. Oral contrast was given. Radiation dose: Total exam DLP = 1346.68 mGy-cm. This CT exam was performed using one or more of the following dose reduction techniques: Automated exposure control, adjustment of the mA and/or kV according to patient size, and/or use of iterative reconstruction technique. FINDINGS: CT CHEST WITHOUT CONTRAST: LUNGS: No evidence of new infiltrate or consolidation in the lungs. MEDIASTINUM: Unremarkable. Normal caliber aorta and pulmonary arterial trunk. The heart is upper normal limit in size/mildly enlarged. LYMPH NODES: Unremarkable. PLEURA: Unremarkable. No pneumothorax. No pleural fluid. BONES: Unremarkable. OTHER FINDINGS: None. CT ABDOMEN AND PELVIS: LIVER: Unremarkable. No gross lesion or ductal dilatation. GALLBLADDER AND BILE DUCTS: Status post cholecystectomy. PANCREAS: Unremarkable. No gross lesion or ductal dilatation. SPLEEN: Unremarkable. ADRENALS: Unremarkable. No mass. KIDNEYS AND URETERS: Unremarkable. No hydronephrosis. No solid mass. VASCULATURE: Diffuse atherosclerotic calcification of the abdominal aorta and iliac arteries are noted. Unremarkable. No aortic aneurysm. BOWEL: Suspicious for large bowel wall thickening. Correlate clinically for colitis. No evidence of high-grade bowel obstruction. APPENDIX: Normal appendix. PERITONEUM: Unremarkable. No free fluid. No free air. LYMPH NODES: Unremarkable. No enlarged lymph nodes. BLADDER: Unremarkable. REPRODUCTIVE: Unremarkable. BONES: No acute fracture. OTHER FINDINGS: None. IMPRESSION: Suboptimal evaluation without IV contrast administration. Suspicious for mild large bowel wall thickening. Correlate clinically for colitis. Possible mild wall thickening of the terminal ileum which also may represent enteritis. No evidence of acute pathology in the chest. Preliminary report was submitted by [facility] Radiology contains concordant findings.
--- NOTE | 2018-05-19 13:24 | CP.PCM.PCO ---
Physician Communication Note - Physician Communication Note Physician Communication Note: MRI, MRA, Echo results pending
--- NOTE | 2018-05-19 13:52 | MRI ---
Date of service: 05/19/2018 PROCEDURE: MRI BRAIN WITHOUT CONTRAST HISTORY: syncope COMPARISON: CT head without contrast from 05/18/2018. TECHNIQUE: Multiplanar, multisequence MR images of the brain were obtained without intravenous contrast enhancement. FINDINGS: HEMORRHAGE: None DWI: No evidence of an acute or early subacute infarction. BRAIN PARENCHYMA: There are mild chronic microangiopathic changes. There is no mass, mass effect or abnormal extra-axial fluid collection. There is no territorial infarction. The midline sagittal structures are normal. VENTRICLES: There is mild age-related global parenchymal volume loss and proportionate enlargement of the ventricles and cortical sulci. CRANIUM: There is normal bone marrow signal pattern. ORBITS: Grossly unremarkable. PARANASAL SINUSES/MASTOIDS: Mild polypoid mucosal thickening in the left inferior maxillary sinus and ethmoid air cells. Small right mastoid effusion. The left mastoid air cells are clear. VASCULAR SYSTEM: There are normal signal voids in the larger intracranial arteries. OTHER FINDINGS: None. IMPRESSION: No acute intracranial abnormality. Mild chronic microangiopathic changes and mild age-related global parenchymal volume loss Small right mastoid effusion.
--- NOTE | 2018-05-19 13:54 | MRI ---
Date of service: 05/19/2018 PROCEDURE: Magnetic Resonance Angiography Brain HISTORY: syncope COMPARISON: None available. TECHNIQUE: 3D time of flight MR angiography of the intracranial arteries was performed. Rotating maximum intensity projection images were generated. FINDINGS: INTERNAL CAROTID ARTERIES: Normal flow related signal. The skull base, petrous, cavernous and supraclinoid segments are bilaterally widely patient. ANTERIOR CEREBRAL ARTERIES: Normal flow related signal. A1 and A2 segments are widely patent. Smaller distal branches unremarkable, as visualized. MIDDLE CEREBRAL ARTERIES: Normal flow related signal. M1 and M2 segments are widely patent. Perisylvian branches grossly symmetric. POSTERIOR CIRCULATION: Basilar Artery: Normal flow related signal. Normal in caliber and widely patent. Distal Vertebral Arteries: Normal flow related signal. Widely patent. The left vertebral artery is hypoplastic, an anatomic variant. Posterior Cerebral Arteries: Normal flow related signal. Widely patent. Posterior Inferior Cerebellar Arteries: Normal flow related signal. Widely patent. ANEURYSM/ VASCULAR MALFORMATIONS: None. OTHER FINDINGS: None. IMPRESSION: Normal noncontrast MR angiography of the brain.
[2018-05-19] MEDS: Insulin Reg-HIGH-Coverage SC SCH ×2 (16:57→22:05)
--- NOTE | 2018-05-19 17:17 | CARD ---
APPROVED REPORT Date of service: 05/19/2018 EKG Measurement Heart [id number] <Conclusion> Normal sinus rhythm Prolonged QT Abnormal ECG
--- NOTE | 2018-05-19 17:26 | CARD ---
APPROVED REPORT Date of service: 05/18/2018 EKG Measurement Heart [id number] ME [id number] <Conclusion> Normal sinus rhythm Nonspeciific ST-T abnormalities Borderline ECG
--- NOTE | 2018-05-19 18:22 | CON ---
DATE: 05/19/2018 NEUROLOGY CONSULTATION CHIEF COMPLAINT: Syncope. HISTORY OF PRESENT ILLNESS: This is a 67-year-old woman with history of coronary artery disease status post stents, type 2 diabetes mellitus, hypertension, hypothyroidism, depression, who presented with atypical chest pain and syncope, was taken for cardiac cath that showed patent stents, as well as EF was 60%. EKG shows normal sinus rhythm. The patient is on aspirin 81 mg, Lipitor 80 mg, as well as Lopressor of 25 mg p.o. two times a day. She mentioned that when she was walking to the bathroom, she became lightheaded and lost consciousness, but did not hit her head. Her initial orthostatic vital signs were borderline orthostatic and we will recommend to repeat it. CAT of the head showed no intracranial abnormalities. MRI of the brain and MRI of the head was unremarkable. Carotid Doppler showed 20% to 39% possible ICA stenosis with antegrade flow in the vertebral arteries. Her neuro exam is nonfocal except for some mild neuropathy and her examination for underlying diabetes. Her hemoglobin A1c is 8, which is elevated. PAST MEDICAL HISTORY: As above. ALLERGIES: TO PENICILLIN. SOCIAL HISTORY: No illicit drug use, smoking or EtOH abuse. REVIEW OF SYSTEMS: A 14-point review of systems is negative except as per HPI. FAMILY HISTORY: Noncontributory. MEDICATIONS: Reviewed by nurse's reconciliation sheet. LABORATORY DATA: Sodium is 136, potassium 3.9, chloride 98, carbon dioxide 30, BUN of 27, creatinine 1.4, and random glucose 263. IMPRESSION: This is a 67-year-old woman with history of coronary artery disease status post stents on aspirin and Lipitor, hypertension, hypothyroidism, and depression, who came with atypical chest pain and syncopal event. Syncope seems most likely vasovagal in nature with a possible neurocardiogenic syncope rather than central. She is borderline orthostatics and which showed initial obstruction and we may repeat those orthostatics. She has mildly elevated BUN and more than possible dehydration from vasovagal syncope. At this time, her MRI of the brain and MRI of the head showed no acute intracranial abnormalities. Carotid Doppler showed 20% to 39% possible internal carotid artery stenosis and antegrade flow in the vertebral arteries. RECOMMENDATIONS: At this time I recommend; 1. Aspirin 81 mg and Lipitor 40 mg for stroke prevention. 2. Follow with Cardiology in regards to atypical chest pain. 3. Requires gentle hydration and I advice gentle hydration throughout the day to avoid hypotensive events. 4. Keep blood sugars between 140 and 180 and avoid hyperglycemic accelerations. Thank you for this consult. She is clinically stable. Jason Christine MD
[2018-05-20] MEDS: metroNIDAZOLE IV 500 mg/100 ml 500 MG/100 ML BAG IVPB SCH ×3 (00:30→14:00)
[2018-05-20] MEDS: Aztreonam 1 Gm in NS 100mL 100 ML IVPB SCH ×2 (00:30→05:43)
[2018-05-20] MEDS: Sodium Chloride 0.9% 1,000 ML IV SCH ×2 (00:30→12:00)
[2018-05-20 01:09] VITALS: RESP 18; O2SAT 95
[2018-05-20 02:52] LABS: URINE BILIRUBIN NEGATIVE (NEGATIVE); URINE BLOOD NEGATIVE (NEGATIVE); URINE GLUCOSE (UA) >=1000 mg/dL (NEGATIVE); URINE LEUKOCYTE ESTERASE NEGATIVE Leu/uL (NEGATIVE); URINE PROTEIN NEGATIVE mg/dL (<30 mg/dL); URINE UROBILINOGEN 0.2 E.U./dL (<1 E.U./dL)
[2018-05-20 02:54] LABS: URINE APPEARANCE CLEAR (CLEAR); URINE COLOR YELLOW (YELLOW)
[2018-05-20] MEDS: Levothyroxine 50 MCG TAB PO SCH (05:30)
[2018-05-20 06:33] LABS: BASO # 0.03 K/mm3 (0.0-2.0); BASO % 0.6 % (0.0-3.0); EOS # 0.1 (0.0-0.7); HEMOGLOBIN 12.5 g/dL (12.0-16.0); LYMPH # 1.2 (1.2-3.4); LYMPH % 24.2 % (22.0-35.0); MEAN CELL VOLUME 91.9 fl (80.0-105.0); MEAN CORPUSCULAR HEMOGLOBIN 30.6 pg (25.0-35.0); MEAN CORPUSCULAR HGB CONC 33.2 g/dl (31.0-37.0); MEAN PLATELET VOLUME 9.8 fl (7.0-11.0); MONO # 0.4 (0.1-0.6); MONO % 7.7 % (1.0-6.0); RBC 4.09 10^6/uL (3.5-6.1); RED CELL DISTRIBUTION WIDTH 14.1 % (11.5-14.5)
[2018-05-20 07:06] LABS: ALB/GLOB RATIO 1.2 (1.1-1.8); ALBUMIN 3.7 g/dL (3.0-4.8); ALT/SGPT 20 U/L (7-56); AST/SGOT 20 U/L (14-36); BLOOD UREA NITROGEN 18 mg/dL (7-21); CALCIUM 8.7 mg/dL (8.4-10.5); GFR NON-AFRICAN AMERICAN > 60
[2018-05-20] MEDS ORDERED: Insulin Human NPH 1 UNITS/0.01 ML SC SCH ×2 (07:30→17:45)
[2018-05-20] MEDS: Insulin Reg-HIGH-Coverage SC SCH ×2 (08:31→12:43)
--- NOTE | 2018-05-20 08:48 | CON ---
DATE OF CONSULTATION: 05/19/2018 CARDIOLOGY CONSULTATION HISTORY: The patient is a 67-year-old woman, who presents with questionable syncope with an episode of chest discomfort. The patient is chest-pain free now. PAST MEDICAL HISTORY: The patient's past medical history is notable for PTCA and stent in the past. Cardiac catheterization performed in 03/2018 revealed patent stents in the mid LAD and proximal RCA. There is a 50-60% stenoses in the proximal LAD, in which the FFR was 0.96, which did not require stenting. The ejection fraction is 60%. The patient's past medical history includes hypertension, hypercholesterolemia as well as diabetes mellitus. The patient is compliant with her medications. SOCIAL HISTORY: The patient does not smoke. REVIEW OF SYSTEMS: Revealed resolution of chest pain, no dyspnea, negative edema in the lower extremities, no dizziness. PHYSICAL EXAMINATION: VITAL SIGNS: Blood pressure is 121/67. There are mild orthostatic changes. Heart rate is in the 80s. NECK: Negative JVD. LUNGS: Without rales. CARDIAC: Heart rate S1, S2. EXTREMITIES: Without edema. LABORATORY DATA: EKG shows no acute changes. The glucose is 263. Troponins are negative x2. Hemoglobin is 12.7. Preliminary echocardiogram shows no LV outflow obstruction with good LV function. IMPRESSION: 1. Stable angina 2. Chest pain, which is transient. 3. No evidence for acute coronary syndrome. 4. Questionable syncope without a cardiac cause identifiable 5. Diabetes mellitus. 6. Hypertension. 7. Hypercholesterolemia. PLAN: Given these findings, we will need to blood pressure that is in the 130-140 to avoid the patient's episode of possible hypotension on her current medications. We will discontinue her nitroglycerin as well as her Pepcid. No further cardiac workup is necessary at this time. Zachary Giles MD
--- NOTE | 2018-05-20 09:25 | CARD ---
APPROVED REPORT Date of service: 05/19/2018 EXAM: Two-dimensional and M-mode echocardiogram with Doppler and color Doppler. INDICATION Cardiac Disease: CAD Congestive Heart Failure 2D DIMENSIONS Left Atrium (2D)3.6 (1.6-4.0cm)IVSd1.4 (0.7-1.1cm) LVDd3.5 (3.9-5.9cm)PWd1.3 (0.7-1.1cm) LVDs2.5 (2.5-4.0cm)FS (%) 29.3 % LVEF (%)57.2 (>50%) M-Mode DIMENSIONS Aortic Root2.40 (2.2-3.7cm)Aortic Cusp Exc.1.00 (1.5-2.0cm) Aortic Valve AoV Peak Toqgqicd339.0cm/Danay Peak GR.5mmHg Mitral Valve MV E Tfyfosmy61.3cm/sMV A Rshesnew74.2cm/sE/A ratio0.8 TDI E/Lateral E'0.0E/Medial E'0.0 Tricuspid Valve TR Peak [id number]/sRAP [id number] Peak Gr.25mmHg [id number] LEFT VENTRICLE The left ventricle is normal size. There is mild concentric left ventricular hypertrophy. The left ventricular function is normal. The left ventricular ejection fraction is within the normal range. There is normal LV segmental wall motion. RIGHT VENTRICLE The right ventricle is normal size. The right ventricular systolic function is normal. ATRIA The left atrium size is normal. The right atrium size is normal. The interatrial septum is intact with no evidence for an atrial septal defect. AORTIC VALVE The aortic valve is mildly sclerotic. No aortic regurgitation is present. There is no aortic valvular stenosis. MITRAL VALVE The mitral valve is normal in structure. There is no mitral valve regurgitation noted. TRICUSPID VALVE The tricuspid valve is normal in structure. There is mild tricuspid regurgitation. PULMONIC VALVE The pulmonary valve is normal in structure. GREAT VESSELS The aortic root is normal in size. The IVC is normal in size and collapses >50% with inspiration. PERICARDIAL EFFUSION There is no pleural effusion. There is no pericardial effusion. <Conclusion> Normal chamber size. Mild concentric LVH. Normal LV systolic function. Mild TR. Mild sclerosis of aortic valve with no stenosis.
[2018-05-20] MEDS: Omega-3-Acid Ethyl Esters 1 GM Cap PO SCH (10:28)
[2018-05-20] MEDS: Venlafaxine 75 mg ER Cap PO SCH (10:28)
[2018-05-20] MEDS ORDERED: Aztreonam 1 Gm in NS 100mL 100 ML IVPB SCH (10:36)
--- NOTE | 2018-05-20 11:55 | CP.PCM.PCO ---
Physician Communication Note - Physician Communication Note Physician Communication Note: as per Dr. Flores and Emmett patient is ok for D/C home today.
[2018-05-20 12:11] VITALS: BP 127/73; PULSE 70; TEMP 98.8
--- NOTE | 2018-05-20 12:34 | CON ---
DATE: 05/20/2018 GASTROENTEROLOGY CONSULT REQUESTING PHYSICIAN: Dr. Walker REASON FOR CONSULT: I have been asked to see this 67-year-old female with a history of coronary artery disease, type 2 diabetes mellitus, hypertension, hypothyroidism, status post coronary artery stent placement in her LAD and RCA in 2018, who comes to the hospital with chest discomfort and syncope. The patient apparently became dizzy and lost consciousness prior to coming to the emergency room. She recently had a cardiac catheterization in 2019. I have been asked to see this patient because of nonspecific esophageal mural thickening. She denies any dysphagia, heartburn, or odynophagia. She denies any rectal bleeding or melena. PAST MEDICAL HISTORY: As above. Again, she has a history of coronary artery disease, status post stent placement in her LAD and RCA; type 2 diabetes mellitus; hypertension; hypothyroidism; depression. PAST SURGICAL HISTORY: Notable for cholecystectomy. SOCIAL HISTORY: She denies cigarette smoking or alcohol use. FAMILY HISTORY: Noncontributory. REVIEW OF SYSTEMS: Fourteen-point review of systems is notable for chest pain and syncope. MEDICATIONS AT HOME: Include Norvasc, Effexor, Crestor, Cozaar, Levoxyl, Isordil, clopidogrel, aspirin, omega-3, and metformin. PHYSICAL EXAMINATION: GENERAL: Obese female lying in bed, in no acute distress. VITAL SIGNS: Reveal temperature of 98.4, blood pressure 126/65, heart rate of 78. HEENT: Reveal sclerae to be white, conjunctivae pink. NECK: Supple. CHEST: Lungs are clear. HEART: Exam reveals regular rate and rhythm. ABDOMEN: Obese, soft, nontender. EXTREMITIES: Show no edema. LABORATORY DATA: Reveal white blood cell count 5, hemoglobin 12.5. Chemistries reveal blood sugar 267. AST, ALT, alk phos were all normal. IMPRESSION: This is a 67-year-old female admitted to the hospital with chest pain and syncope; known history of coronary artery disease, status post coronary artery stent placement in her right coronary artery and left anterior descending artery; with asymptomatic nonspecific mural thickening of the esophagus on CAT scan. She denies any dysphagia or heartburn. RECOMMENDATIONS: The patient can have an elective endoscopy as an outpatient. She was instructed to do this. No further workup is needed at this time. Thank you. Guilherme Flores MD [facility] # [id number]
[2018-05-20 13:22] LABS: RAPID PLASMA REAGIN NONREACTIVE (NONREACTIVE)
--- NOTE | 2018-05-20 16:22 | PN ---
DATE: 05/20/2018 SUBJECTIVE: The patient is ambulating without symptoms. OBJECTIVE: VITAL SIGNS: Blood pressure varies from 127-154 systolic, heart rates in the 70s. NECK: Negative JVD. LUNGS: Without rales. HEART: S1 and S2. EXTREMITIES: Without edema. LABORATORY DATA: Glucose is 267. Hemoglobin is 12.5. IMPRESSION: 1. Resolution of dizziness. 2. Stable angina. 3. Coronary artery disease. 4. Hypertension. 5. Hypercholesterolemia. 6. Diabetes mellitus. PLAN: Given these findings, we will need to accept blood pressures from 130-140, given her potential negative reaction to medications. Followup instructions were given to the patient in detail. Zachary Giles MD
[2018-05-20 17:29] LABS: LYME IGM NEGATIVE (NEGATIVE)
[2018-05-20 17:31] LABS: LYME IGG NEGATIVE (NEGATIVE)
--- NOTE | 2018-05-20 23:40 | DS ---
FINAL PROGRESS NOTE AND DISCHARGE SUMMARY HOSPITAL COURSE: The patient is seen in room 276, bed 1. Overnight nurse's notes were reviewed. No adverse events were documented, notified or called for. The patient underwent most of the diagnostic therapeutic intervention. PHYSICAL EXAMINATION: VITAL SIGNS: T-max 98. Telemetry shows normal sinus rhythm, heart rate 82-95, blood pressure 137/82, respiration 18, and O2 sat 99%. HEENT: Head is normocephalic and atraumatic. Pinkish conjunctivae. Anicteric sclerae. No oropharyngeal lesion. NECK: No neck rigidity. CHEST: Kyphosis. LUNGS: Shows no audible crackle, rales or wheezing. CARDIOVASCULAR: S1 and S2, regular rhythm. Positive systolic murmur left sternal border, right second intercostal space, left second intercostal space. ABDOMEN: Soft and obese. Positive bowel sounds. Protuberant. No palpable hepatosplenomegaly. GENITALIA: Female. RECTAL: Examination is deferred. EXTREMITIES: Shows no pitting edema, nonpitting swelling of the lower extremity. MUSCULOSKELETAL: Shows an elevated body mass index. NEUROLOGIC: The patient is alert, awake, responsive, is able to move upper and lower extremity without assistance. Gait examination is independent according to the nurses' notes. PSYCHIATRIC: Positive for anxiety and depression. DIAGNOSTICS DATA: From 05/20/2018, CBC is within normal limit. CMP; LFTs are within normal limit. Glucose is elevated at 267. Hemoglobin A1c 8.0, triglyceride 282, cholesterol 206, LDL 102, and HDL 25. The patient has positive microalbumin. Ultrasound of the abdomen shows cholecystectomy. CAT scan of the abdomen and pelvis shows questionable colitis, enteritis. Carotid Doppler shows 20-39% internal carotid artery stenosis. Renal ultrasound shows medical renal disease. MRI of the brain shows microangiopathic disease of the brain, cerebral cortical atrophy of the brain,slight ventriculomegaly and small right mastoid effusion and maxillary ethmoid mucosal thickening. Echocardiogram shows left ventricle ejection fraction of 51%, hypertensive cardiovascular disease, aortic sclerosis. The patient was seen by Neurology and Cardiology. Their recommendations were reviewed. FINAL IMPRESSION, PLAN AND DISCHARGE DIAGNOSES: 1. Chest pain. 2. Noncardiac chest pain. 3. Questionable and possible vasovagal versus neurocardiogenic syncope. 4. Morbid obesity. 5. Uncontrolled type 2 zcn-fpzwpmd-jzogkfvcu diabetes mellitus with hyperglycemia and hemoglobin A1c of 8.0. 6. Hyperglycemia. 7. Hypertriglyceridemia. 8. Hypercholesteremia with decreased HDL. 9. Microalbuminuria. 10. Status post cholecystectomy. 11. Questionable colitis, enteritis. 12. A 20-39% internal carotid artery stenosis. 13. Medical renal disease. 14. Microangiopathic disease of the brain with cerebral cortical atrophy of the brain and mild ventriculomegaly. 15. Small right mastoid effusion. 16. Maxillary ethmoid mucosal thickening. 17. Hypertensive cardiovascular disease with left ventricle ejection fraction of 57%. 18. Aortic sclerosis. 19. Vasovagal syncope versus neurocardiogenic syncope. 20. History of anxiety. 21. History of depression. 22. History of coronary artery disease, coronary angioplasty. 23. History of hypothyroidism. 1. Chest pain, etiology undetermined. 2. History of multivessel coronary artery disease, history of angioplasty of the RCA and left anterior descending artery. 3. Syncope, etiology undetermined. 4. Type 2 uza-sgwexss-mljbbvtjw diabetes mellitus. 5. Acute kidney injury. 6. History of chronic kidney disease. 7. History of hypertension, hyperlipidemia, hypothyroidism. 8. Hypertriglyceridemia and hypercholesterolemia with elevated LDL. 9. Morbid obesity. 10. Questionable sleep apnea. 11. Acute kidney injury with underlying chronic kidney disease stage III. 12. History of uncontrolled diabetes mellitus. 13. History of depression. 14. Bilateral lower extremity venous stasis. 1. Chest pain, etiology undetermined. 2. Syncope, etiology undetermined. 3. History of uncontrolled diabetes mellitus with elevated hemoglobin A1c. 4. History of morbid obesity. 5. Questionable acute kidney injury. 6. History of hyperglycemia. 7. Generalized cerebral cortical a atrophy of the brain. 8. Microvascular ischemic disease of the brain. 9. Bilateral basal ganglia calcification. 10. History of hypertension. 11. History of depression. 12. History of hyperlipidemia. 13. History of bvm-rmnodkm-saarqdrfe diabetes mellitus. 14. History of hypothyroidism. 15. History of unstable angina. 16. History of multivessel coronary artery disease and multivessel angioplasty. 17. History of bilateral lower extremity venous stasis. 18. History of type 2 diabetes. 19. History of cholecystectomy. 20. History of questionable pancreatitis. 21. History of proteinuria. 22. History of Escherichia coli urinary tract infection. 23. History of left ventricle ejection fraction of 50-60%. 24. History of angioplasty and stent placement of the proximal right coronary artery disease. 25. History of angioplasty and stent placement of the mid left anterior descending artery. 26. A 50% stenosis of the proximal left anterior descending after the takeoff of the diagonal vessel. 27. History of pulmonary hypertension with right ventricular systolic pressure of 55 mmHg. 28. Grade 1 abnormal relaxation pattern. 29. Mild mitral regurgitation. 30. History of extended spectrum beta-lactamase urinary tract infection. 31. HISTORY OF PENICILLIN ALLERGY. Plan at this time, the patient will be considered for discharge home after cleared by Neurology, Cardiology, and Gastroenterology. The patient's diuretics will be held at this time because of the mild kidney injury which was present on admission. The patient's discharge medications will be as per the updated ambulatory orders plus p.o. antibiotics. If the patient is cleared by GI for discharge, the patient will be considered to be discharged on p.o. antibiotics for questionable antritis and colitis. The patient will be discharged home on medications as per the ambulatory orders which are updated and revised. The patient's metformin has been increased to 1000 mg twice a day because of hyperglycemia and uncontrolled diabetes and hemoglobin A1c of 8.0. The patient will be discharged home on Crestor which the patient is already taking at home. The patient will be discharged home on aspirin and Plavix which she is already taking at home. The patient will continue on the same dose of Synthroid. The patient will also be given a prescription for Lovaza 2 g twice a day. DISCHARGE FOLLOWUP: With PMD within 1 week. Discharge followup with lead front end developer in 1 week. During this hospitalization, the patient was extensively explained about the details of her medical condition, abnormal diagnostic test results were explained to the patient. All questions concerned answered. Time spent in the discharge process 45 minutes. Dictated and electronically signed, not read. Brian Walker MD [facility]
== END 2018-05-20 15:21 | disposition home or self-care (01) ==
LOC: ED 19:13 → ERH 21:59 → 2RSO 05-19 00:30
PROVIDERS: ADMIT Internal Medicine; ATTEND Internal Medicine
DX: R07.89 Other chest pain (principal); E11.65 Type 2 diabetes mellitus with hyperglycemia; E11.22 Type 2 diabetes mellitus with diabetic chronic kidney disease; N18.3 Chronic kidney disease, stage 3 (moderate); N17.9 Acute kidney failure, unspecified; I25.118 Atherosclerotic heart disease of native coronary artery with other forms of angina pectoris; I13.10 Hypertensive heart and chronic kidney disease without heart failure, with stage 1 through stage 4 chronic kidney disease, or unspecified chronic kidney disease; I27.20 Pulmonary hypertension, unspecified; E03.9 Hypothyroidism, unspecified; F32.9 Major depressive disorder, single episode, unspecified; E66.01 Morbid (severe) obesity due to excess calories; I87.2 Venous insufficiency (chronic) (peripheral); Z88.0 Allergy status to penicillin; E78.00 Pure hypercholesterolemia, unspecified; E78.1 Pure hyperglyceridemia; Z87.440 Personal history of urinary (tract) infections; Z95.5 Presence of coronary angioplasty implant and graft; I65.23 Occlusion and stenosis of bilateral carotid arteries
CPT/HCPCS: 36415; 70450; 70544; 70551; 71045; 71250; 74176; 76770; 80053; 80061; 81003; 82043; 82550; 82570; 82803; 82948; 83036; 83615; 83735; 83880; 84100; 84300; 84439; 84443; 84480; 84484; 85025; 85027; 85378; 85610; 85730; 86592; 86618; 87040; 93005; 93306; 93880; 93970; 97161; 99285; G0378; G8978; G8979; J0692; J1644; J7030; Q9966

== ENCOUNTER 2018-06-08 11:58 | Emergency (ER) | payer MEDICARE, OTHER ==
[2018-06-08 12:01] VITALS: BMI 35.4
[2018-06-08 12:15] VITALS: RESP 18
--- NOTE | 2018-06-08 12:48 | ED PDOC ---
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 Patient states she routinely takes insulin 3 times a day followed by a meal. Patient reports low blood sugar of 25 this morning which later improved to 55 at 11 am, however unchanged after drinking 2 cups of orange juice, prompting her to present to the ED for evaluation. Patient states generalized fatigue and mild frontal headache. Patient additionally reports an episode of chest pain yesterday evening, which spontaneously resolved with juice but returned this morning. Patient denies any other somatic complaint. Patient denies any fevers, chills, dizziness, shortness of breath, dyspnea on exertion, cough, diaphoresis, abdominal pain, nausea, vomiting, diarrhea, back pain, neck pain, or any other complaints. Time/Duration: 24 hours Symptom Onset: Gradual Symptom Course: Unchanged Activities at Onset: Light Context: Home Past Medical History - Provider Review Nursing Documentation Reviewed: Yes - Infectious Disease Hx of Infectious Diseases: None - Cardiac Hx Cardiac Disorders: Yes (CAD with 2 stents, cardiac cath.) - Pulmonary Hx Respiratory Disorders: No - Neurological Hx Neurological Disorder: No - HEENT Hx HEENT Disorder: No - Renal Hx Renal Disorder: Yes - Endocrine/Metabolic Hx Diabetes Mellitus Type 2: Yes Hx Hypothyroidism: Yes - Hematological/Oncological Hx Blood Disorders: No - Integumentary Hx Dermatological Disorder: No - Musculoskeletal/Rheumatological Hx Musculoskeletal Disorders: Yes Hx Falls: Yes - Gastrointestinal Hx Gastrointestinal Disorders: Yes - Genitourinary/Gynecological Hx Genitourinary Disorders: Yes - Psychiatric Hx Psychophysiologic Disorder: Yes Hx Depression: Yes Hx Substance Use: No - Surgical History Hx Cardiac Catheterization: Yes Hx Cholecystectomy: Yes Hx Coronary Stent: Yes (x2) - Anesthesia Hx Anesthesia: Yes Hx Anesthesia Reactions: No Hx Malignant Hyperthermia: No - Suicidal Assessment Feels Threatened In Home Enviroment: No Family/Social History - Physician Review Nursing Documentation Reviewed: Yes Family/Social History: No Known Family HX Smoking Status: Never Smoked Hx Alcohol Use: No Hx Substance Use: No Allergies/Home Meds Allergies/Adverse Reactions: Allergies Penicillins Allergy (Verified 04/20/18 12:40) RASH Home Medications: Home Meds Medication Instructions Recorded Confirmed Furosemide [Lasix] 1 tab PO DAILY 06/08/18 06/08/18 Hydrochlorothiazide [Microzide] 1 tab PO DAILY 06/08/18 06/08/18 Review of Systems - Physician Review All systems were reviewed & negative as marked: Yes - Review of Systems Constitutional: absent: Fevers Respiratory: absent: SOB Cardiovascular: Chest Pain Gastrointestinal: absent: Abdominal Pain, Diarrhea, Nausea, Vomiting Genitourinary Female: absent: Dysuria, Urine Output Changes Musculoskeletal: absent: Back Pain, Neck Pain Skin: absent: Rash Neurological: Headache. absent: Dizziness Endocrine: Other (Low blood sugar). absent: Diaphoresis Psychiatric: absent: Anxiety Physical Exam - Physical Exam Narrative Physical Exam (Text): 06/08/18 12:57 Gen: VS reviewed, alert, well developed, well nourished, nontoxic, mild distress. ENT: normal pharynx. Eye: EOMI, PERRL. Neck: no JVD, supple, no adenopathy. CV: regular rate, regular rhythm, no rubs, no murmur, no gallops, S1, S2, pulses equal and strong. Pulm: no distress, clear to auscultation, no wheeze, no rhonchi, breath sounds equal, no rales. Abd: soft, nontender, no guarding, no rebound, no rigidity, normal bowel sounds. Ext: no edema. Skin: good color, no rash, no cyanosis. Psych: responds appropriately to questions, normal affect. Neuro: oriented x 3, CN2-12 intact grossly, motor intact, sensation intact. Vital Signs Reviewed: Yes Vital Signs Temp Pulse Resp BP Pulse Ox 06/08/18 12:15 97.9 F 85 18 121/63 98 Temperature: Afebrile Blood Pressure: Normal Pulse: Regular Respiratory Rate: Normal Appearance: Positive for: Well-Appearing, Non-Toxic, Comfortable Pain Distress: Mild Mental Status: Positive for: Alert and Oriented X 3 Medical Decision Making ED Course and Treatment: 06/08/18 12:50 Impression: 67 year old female presents to the ED for evaluation of low blood sugar. Plan: -- CT of head -- EKG -- Labs -- Chest X-ray -- Reassess and disposition Prior Visits: Notes and results from previous visits were reviewed. Progress Notes: 06/08/18 15:15 patient feels well and ready to go home. patient seen for hypoglycemia, likely stemming from caloric mismatch. patient was recently discharged from the hospital, she had not discontinued her metformin. case discussed and patient seen by dr. kumar in the ED and states that the patient was supposed to stop her metformin. patient understands to stop metformin and to make sure she eats regular meals. all discussion with patient were made with jamaican aerospace manager. patient had good understanding of care points and will follow up with dr. kumar in the office. - RAD Interpretation Narrative RAD Interpretations (Text): 06/08/18 14:25 Chest X-ray reviewed by radiologist, shows: FINDINGS: LUNGS: No active pulmonary disease. PLEURA: No significant pleural effusion identified, no pneumothorax apparent. CARDIOVASCULAR: No aortic atherosclerotic calcification present. Normal cardiac size. No pulmonary vascular congestion. OSSEOUS STRUCTURES: No significant abnormalities. VISUALIZED UPPER ABDOMEN: Normal. OTHER FINDINGS: None. IMPRESSION: No active disease. Hair Or Beauty Salon Manager: Radiologist - EKG Interpretation EKG Interpretation (Text): 06/08/18 12:27 NSR @78 bpm, nml qrs, nml axis, no acute sttw abn. Interpreted by ED Physician: Yes Type: 12 lead EKG - Scribe Statement The provider has reviewed the documentation as recorded by the Scribe Melissa Frias. All medical record entries made by the Scribe were at my direction and personally dictated by me. I have reviewed the chart and agree that the record accurately reflects my personal performance of the history, physical exam, [facility] decision making, and the department course for this patient. I have also personally directed, reviewed, and agree with the discharge instructions and disposition. Disposition/Present on Arrival - Present on Arrival Any Indicators Present on Arrival: No History of DVT/PE: No History of Uncontrolled Diabetes: No Urinary Catheter: No History of Decub. Ulcer: No History Surgical Site Infection Following: None - Disposition Have Diagnosis and Disposition been Completed?: Yes Diagnosis: Hypoglycemia Disposition: HOME/ ROUTINE Disposition Time: 15:19 Patient Plan: Discharge Condition: STABLE Discharge Instructions (ExitCare): Low Blood Sugar, Adult (DC) Referrals: Brian Kumar MD [Staff Provider] - Follow up with primary Forms: [facility] (Congolese)
[2018-06-08 13:14] LABS: BASO # 0.04 K/mm3 (0.0-2.0); BASO % 0.7 % (0.0-3.0); EOS # 0.1 (0.0-0.7); EOS % 1.7 % (1.5-5.0); HEMOGLOBIN 13.9 g/dL (12.0-16.0); LYMPH # 1.4 (1.2-3.4); LYMPH % 24.8 % (22.0-35.0); MEAN CELL VOLUME 92.6 fl (80.0-105.0); MEAN CORPUSCULAR HEMOGLOBIN 31.4 pg (25.0-35.0); MEAN CORPUSCULAR HGB CONC 33.9 g/dl (31.0-37.0); MEAN PLATELET VOLUME 9.4 fl (7.0-11.0); MONO # 0.4 (0.1-0.6); MONO % 6.6 % (1.0-6.0); RBC 4.43 10^6/uL (3.5-6.1); RED CELL DISTRIBUTION WIDTH 13.8 % (11.5-14.5); WHITE BLOOD COUNT 5.7 10^3/uL (4.5-11.0)
[2018-06-08 13:23] LABS: ALB/GLOB RATIO 1.3 (1.1-1.8); ALBUMIN 4.2 g/dL (3.0-4.8); ALT/SGPT 34 U/L (7-56); AST/SGOT 18 U/L (14-36); BLOOD UREA NITROGEN 15 mg/dL (7-21); CALCIUM 10.2 mg/dL (8.4-10.5); GFR NON-AFRICAN AMERICAN > 60
[2018-06-08 13:32] LABS: TROPONIN I < 0.01 ng/mL
--- NOTE | 2018-06-08 13:51 | RAD ---
Date of service: 06/08/2018 HISTORY: chest pain COMPARISON: 05/18/2018 TECHNIQUE: 1 view obtained. FINDINGS: LUNGS: No active pulmonary disease. PLEURA: No significant pleural effusion identified, no pneumothorax apparent. CARDIOVASCULAR: No aortic atherosclerotic calcification present. Normal cardiac size. No pulmonary vascular congestion. OSSEOUS STRUCTURES: No significant abnormalities. VISUALIZED UPPER ABDOMEN: Normal. OTHER FINDINGS: None. IMPRESSION: No active disease.
--- NOTE | 2018-06-08 15:11 | CT ---
Date of service: 06/08/2018 PROCEDURE: CT HEAD WITHOUT CONTRAST. HISTORY: headache COMPARISON: 05/18/2018 TECHNIQUE: Axial computed tomography images were obtained through the head/brain without intravenous contrast. Radiation dose: Total exam DLP = 951.9 mGy-cm. This CT exam was performed using one or more of the following dose reduction techniques: Automated exposure control, adjustment of the mA and/or kV according to patient size, and/or use of iterative reconstruction technique. FINDINGS: HEMORRHAGE: No intracranial hemorrhage. BRAIN: No mass effect or edema. No atrophy or chronic microvascular ischemic changes. VENTRICLES: Unremarkable. No hydrocephalus. CALVARIUM: Unremarkable. PARANASAL SINUSES: Unremarkable as visualized. No significant inflammatory changes. MASTOID AIR CELLS: Unremarkable as visualized. No inflammatory changes. OTHER FINDINGS: None. IMPRESSION: No acute intracranial findings
[2018-06-08 16:27] VITALS: O2SAT 99
[2018-06-08 16:30] VITALS: BP 132/76; PULSE 80; TEMP 98.2
--- NOTE | 2018-06-08 17:40 | CARD ---
APPROVED REPORT Date of service: 06/08/2018 EKG Measurement Heart [id number] <Conclusion> Poor data quality, interpretation may be adversely affected Normal sinus rhythm NDSTT abnormalities Borderline normal ECG
--- NOTE | 2018-06-09 02:34 | CON ---
DATE: 06/08/2018 HISTORY OF PRESENT ILLNESS: The patient is a 67-year-old [place] female who was just discharged 2 weeks ago after being evaluated and had a complete workup and testing done for chest pain and syncope. The patient was cleared for discharge about 2 weeks ago after being evaluated by Cardiology and Neurology, all the testing, subjective, objective data was found to be negative. Today, the patient presented to the emergency room via EMS ambulance, complaining of low blood sugar. The patient's blood sugar on arrival in the emergency room was 98. The patient also reports that she is also taking insulin which the patient did not report it on the home medications. The patient states that she is taking insulin two to three times a day, 30 units, and the patient is also taking metformin which was advised on the last hospitalization to be discontinued, though it still appeared on the ambulatory orders. The patient's revised ambulatory orders were not entered in the computer. During the last hospitalization 2 weeks ago, the patient's medications were modified and the patient was advised to take medications as per the updated medications, but it appears the patient is not taking the medications according to that. The patient reported that her blood sugar was 55, she took two cups of orange juice. The patient is complaining of fatigue and tiredness. The patient also complains of some atypical rib cage pain which is reproducible on palpation. The patient states that the symptoms resolved after taking orange juice. The patient was seen and evaluated in the emergency room in bed 2. CODE STATUS: Full code. LIVING WILL: None. ADVANCED DIRECTIVE: None. ALLERGIES: PENICILLIN. Height is 5 feet 2 inches, weight is 200. BMI is 36.6. HOME MEDICATIONS: Are as per the patient's last discharge of 05/20/2018. LAST DISCHARGE MEDICATIONS: Cozaar 100 mg daily, Crestor 20 mg daily, Ecotrin 81 mg daily. The patient's metformin was advised to be stopped since the patient was taking insulin. The patient was also discharged on Imdur 30 mg daily, Lasix 20 mg daily, Lovaza 2 g twice a day. The patient's hydrochlorothiazide was discontinued. Norvasc 10 mg h.s., Plavix 75 mg daily. SOCIAL HISTORY: Negative for substance abuse. Negative for alcohol. Negative for smoking. PAST MEDICAL AND SURGICAL HISTORY: History of hypertension, history of hyperlipidemia, history of atypical chest pain, history of coronary artery disease, history of coronary angioplasty of the RCA and left anterior descending, history of hypothyroidism, history of syncope which is vasovagal syncope, history of noncardiac chest pain, history of vasovagal versus neurogenic syncope, history of morbid obesity, history of insulin-requiring diabetes mellitus with hemoglobin A1c of 8, history of hypertriglyceridemia, history of microalbuminuria, history of cholecystectomy, history of questionable colitis and enteritis, history of 20-39% internal carotid artery stenosis, history of medical renal disease, 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 with mild ventriculomegaly, history of small right mastoid effusion, history of maxillary ethmoid mucosal thickening, history of hypertensive cardiovascular disease with left ventricle ejection fraction of 57%, history of aortic sclerosis, history of anxiety and depression, history of obesity, history of questionable obstructive sleep apnea, history of bilateral lower extremity venous stasis, history of musculoskeletal atypical reproducible chest pain, history of bilateral basal ganglia calcification, history of Escherichia coli urinary tract infection, history of questionable pancreatitis, history of angioplasty and stent placement of the proximal right coronary artery disease, history of angioplasty and stent placement of the left anterior descending artery, history of 50% stenosis of the proximal left anterior descending after the takeoff of the diagonal, history of pulmonary hypertension with right ventricular systolic pressure of 55 mmHg, history of grade 1 abnormal relaxation pattern, history of mild mitral regurgitation, history of proteinuria. PHYSICAL EXAMINATION: GENERAL: The patient was seen lying in the bed in stretcher #2. The patient is awake, responsive. VITAL SIGNS: T-max 97.9, pulse 85, blood pressure 121/63, respiration 18, O2 sat 98%. HEAD: Normocephalic, atraumatic. EENT AND NECK: [place] conjunctivae. Anicteric sclerae. Dry oral mucosa. No neck rigidity. CHEST: Kyphosis. LUNGS: No audible crackle, rales, or wheezing. CARDIOVASCULAR: S1, S2. Questionable soft systolic murmur left sternal border, right second intercostal space, left second intercostal space. ABDOMEN: Soft. Positive bowel sounds. Healed surgical scar of cholecystectomy. No palpable hepatosplenomegaly. GENITALIA: Female. RECTAL: Deferred. EXTREMITIES: Trace swelling of the lower extremity. No pitting edema. No calf tenderness. No Homans' sign. NEUROLOGIC: The patient is alert, awake, responsive, is able to move upper and lower extremities without assistance. Gait examination is not tested. Cranial nerves II-XII limited. MUSCULOSKELETAL: Body mass index of 37. PSYCHIATRIC: Positive for anxiety and depression. DIAGNOSTICS: CBC is within normal limits with WBC of 5.7, hemoglobin and hematocrit of 13.9 and 41, platelet 258. Sodium 140, potassium 3.4, chloride 102, CO2 of 29, anion gap 12, BUN 15, creatinine 0.9, GFR greater than 60. Glucose 98, 116, 178. Calcium 10.2. Troponin is negative at 0.01. The patient had a chest x-ray and CT of the head which were reviewed, which shows CT of the head was negative, chest x-ray was negative. EKG was normal sinus rhythm, no ST elevation or depression noted.. Q-wave in lead III was noted. The patient's repeat blood sugar is 178. IMPRESSION AND PLAN: 1. Hypoglycemia, probably secondary to inappropriate use of oral hypoglycemics and insulin. The patient is advised to stop the oral hypoglycemics and continue on the insulin which she is taking at home. 2. Atypical reproducible chest wall pain. 3. Mild hypokalemia. 4. Status post hypoglycemia. 5. History of hypertension. 6. History of hyperlipidemia. 7. History of coronary artery disease, coronary angioplasty. 8. History of right-sided diastolic congestive heart failure. 9. History of hypothyroidism. 10. History of hypertriglyceridemia. PLAN: At this time, the patient was evaluated in the emergency room. We will await further recommendation and evaluation by the ER physician. The patient was advised that if the patient is cleared for discharge by the ER, the patient can follow up in the office during this week on 06/09/2018, 06/10/2018, 06/11/2018, or 06/13/2018. The patient was advised to stop metformin oral hypoglycemic. The patient was advised to continue medications as follows. The patient states that she takes insulin 30 units twice a day, but she was unable to tell us which brand of insulin she takes. So discharge medications are insulin 30 units twice a day with breakfast and with supper. The patient is advised to resume Norvasc 10 mg daily, aspirin 81 p.o. daily, Plavix 75 daily, Lasix 20 mg daily, Imdur 30 mg daily, Synthroid 50 mcg daily, Cozaar 100 mg daily, Lovaza 2 g twice a day, Crestor 20 mg daily. The patient is advised to follow up if the patient is discharged from the ER. The patient is advised to follow up in the office during this week with all her medications including insulin. Dictated and electronically signed, not read. Brian Walker MD
== END 2018-06-08 15:45 | disposition home or self-care (01) ==
LOC: ED 11:58
DX: E11.649 Type 2 diabetes mellitus with hypoglycemia without coma (principal); Z79.4 Long term (current) use of insulin; I25.10 Atherosclerotic heart disease of native coronary artery without angina pectoris; I10 Essential (primary) hypertension; Z95.5 Presence of coronary angioplasty implant and graft